=== PATIENT | male | born 1955 | race Caucasian/White ===

== ENCOUNTER 2025-05-05 10:48 | Outpatient (AMB) | payer OTHER, SELFPAY ==
--- OUTSIDE RECORDS SUMMARY | 2024-07-31 09:14 | XMS_ITS | Encounter Summary ---
Author Name [facility] [facility] Address [address] [place] [address] Support Name Relationship Address Phone MADELINE FRAZIER Next of Kin [address] [place] [phone] ISIDRO ROBERTSON Emergency Contact Unknown [phone] BARBIE ROBERTSON Emergency Contact Unknown [phone] Selected Encounter This section includes the information on record at [place] for the Encounter. Date/Time Encounter Type Encounter Description Reason Pro vider Source Jul 31, 2024 01:14 PM Outpatient Encounter ADMIN PAT ACTIVTIES (MASNONCT) IHE Encounter Template Text not used by [place] Plan of Treatment: Future Appointments (+ 6 months) and Future Tests (+/- 45 days) The Plan of Treatment section includes future care activities for the patient from all [place] treatmentfacilities. This section includes future appointments and future orders which are active, pending or scheduled. Future Appointments This section includes appointments that were scheduled to occur 6 months from the date of the Encounter, up to a maximum of 20 appointments. The data comes from all [place] treatment facilities. Appointment Date/Time Appointment Type Appointme nt Facility Name Sep 06, 2024 09:00 AM AMBULATORY - [facility] Encounter Notes: All associated encounter notes This section contains the clinical notes associated to the Encounter. Date/Time Encounter Note(s) Provider Source Jul 31, 2024 01:14 PM ADMINISTRATIVE NOT E: LOCAL TITLE: SOCIAL WORK ADMIN NOTE STANDARD TITLE: ADMINISTRATIVE NOTE DATE OF NOTE: JUL 31, 2024@13:14 ENTRY DATE: JUL 31, 2024@13:14:11 AUTHOR: JACKLYN SLAUGHTER COSIGNER: URGENCY: STATUS: COMPLETED Received a call from Taras Yarrows, brother of the & .'s identity was verified using Full Name, Last 4 of SSN, . Demographics unchanged/verified. is still at [facility]. States during the last hospitalization, the Claverack was found to have had a heart attack. States he and his brother have called multiple times (like 15 times) and can't get either a return call or someone who can get them an update on the Claverack. States most days the Claverack is not able to answer the phone/respond to texts. States when he does, he is not really able to tell them anything of value. Requested he ask for a care plan meeting. Also gave the number to the [facility]. JOINT CREASER called x 3 and left a message for a return call. On the fourth attempt, TIMBO reached someone who transferred JOINT CREASER to the facility SW. Left a message for a return call. Time Spent: 17 minutes /ryann/ Jacklyn Slaughter LCSW Dry House Operator ([place]) Signed: 07/31/2024 13:18 [facility]ACKLYN SLAUGHTER [facility]
--- NOTE | 2025-05-05 10:58 | MHC.OFFVIS ---
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 Required: No Accompanied by: Self / Same As Patient Allergies No Known Allergies Allergy (Verified 05/05/25 11:13) Medication List - Last Reconciled 05/05/25 by Rickey Sanchez MD acetaminophen 500 mg PO Q6H PRN alfuzosin ER 10 mg PO DAILY amlodipine 5 mg PO DAILY atorvastatin (Lipitor) 80 mg PO DAILY clopidogrel 75 mg PO DAILY doxazosin (Cardura) 4 mg PO DAILY evolocumab (Repatha SureClick) 140 mg subcut Q2W ezetimibe 10 mg PO DAILY fluoxetine 40 mg PO DAILY losartan 25 mg PO DAILY metoprolol tartrate 25 mg PO DAILY pantoprazole 40 mg PO DAILY primidone 50 mg PO BEDTIME HPI Comments Details: The patient is a 69-year-old male presenting for cardiovascular follow-up and management of existing conditions. He has relocated from [place]. The patient underwent coronary artery bypass grafting approximately ten years ago at [facility] in [place], [place]. In 2022, he had a stent placed in [place] due to shortness of breath. History of abdominal aortic aneurysm, status post EVAR as well as iliac artery aneurysm. Has hypertension, dyslipidemia. Within limits of his activity, no overt cardiac symptoms. No angina or shortness of breath. [facility] Medical History (Updated 05/05/25 @ 11:42 by Rickey Sanchez MD) Hyperlipidemia, unspecified Primary hypertension CABG (coronary artery bypass graft) planned Heart disease Iliac artery aneurysm Atherosclerotic cardiovascular disease Surgical History (Updated 05/05/25 @ 11:24 by Danisha De La Torre CMA) Hx of cardiac cath H/O heart artery stent Status post endovascular aneurysm repair (EVAR) Status post aorto-coronary artery bypass graft Family History (Updated 05/05/25 @ 11:25 by Danisha De La Torre CMA) Mother No problems noted. Social History (Updated 05/05/25 @ 11:25 by Danisha De La Torre CMA) Alcohol intake: current Patient Tobacco Use Status: Never used Tobacco Review of Systems Const Denies chills, Denies fatigue, Denies fever(s), Denies frequent falls, Denies weakness, Denies weight gain and Denies weight loss ENT Denies dizziness Card Denies chest pain, Denies leg edema, Denies lightheadedness, Denies palpitations, Denies dyspnea, Denies dyspnea on exertion and Denies orthopnea Resp Denies cough, Denies dyspnea and Denies dyspnea on exertion GI Denies bloating and Denies change in bowel habits Musc Denies muscle weakness, Denies numbness and Denies tingling Neuro Denies dizziness, Denies frequent falls, Denies numbness, Denies tingling and Denies weakness Endo Denies fatigue and Denies palpitations Physical Exam Vital Signs: Last Vital Signs Pulse 59 05/05/25 11:08 BP 126/80 05/05/25 11:08 BMI result Body Mass Index 29.4 Const General: comfortable and no acute distress Orientation/consciousness: patient oriented x3 HEENT Other: Unremarkable Head: Yes normal to inspection Neck Neck: Yes normal visual inspection Chest Chest palpation & inspection: normal inspection of the chest Resp Auscultation: clear to auscultation bilaterally Cardio Palpation: normal PMI Heart sounds: S1 normal heart sound present, S2 normal heart sound present, no gallops, no murmurs and no rubs GI Palpation (GI): Soft to palpation Back/Spine/Pelvis Other: unremarkable Skin General skin exam: no rashes or lesions noted Neuro General: patient oriented x3 Extrem General: Yes normal to inspection Psych Mental Status: mental status grossly normal Office Procedures EKG Details: EKG with sinus bradycardia at 59/Min; incomplete right bundle-branch block pattern; [place]. [id number], Complete Assessment & Plan Assessment & Plan (1) Atherosclerotic cardiovascular disease: Code(s): I25.10 - Atherosclerotic heart disease of [place] coronary artery without angina pectoris Category: Medical (2) Status post aorto-coronary artery bypass graft: Code(s): Z95.1 - Presence of aortocoronary bypass graft Category: Surgical (3) Status post endovascular aneurysm repair (EVAR): Code(s): Z98.890 - Other specified postprocedural states; Z86.79 - Personal history of other diseases of the circulatory system Category: Surgical Plan Cardiac data reviewed. In 2022, he underwent stress imaging which showed moderate size, moderate degree of ischemia in the entire inferolateral wall. After that, he underwent cardiac catheterization with stent to the vein graft to OM. Other findings include luminal irregularities in the LAD with occluded PTEERSON to LAD. Hwhhngpu-[id number] 1st diagonal with fills via vein graft and has a 40% lesion. RCA is occluded but has vein graft to PDA and collateral flow to the posterolateral branches. As he is otherwise asymptomatic, continue current regimen including Plavix, statins, Zetia, Repatha. Blood pressure is stable on current regimen. We will get labs from his PCP with regard to lipids. We will get an echocardiogram for cardiac function assessment. With regard to the history of abdominal aortic aneurysm repair, he will need vascular surgery follow-up, but he states that he would like to ensure vascular surgeon is in-network and hence he will call his insurance 1st. We will follow up in 3 months' time. Orders: Orders CA echo transthoracic complete Today I25.10 - Atherosclerotic heart disease of [place] coronary artery without angina pectoris Coding Level of Care Code New Pt Level 4 (96694) Diagnoses Atherosclerotic cardiovascular disease I25.10 Status post aorto-coronary artery bypass graft Z95.1 Status post endovascular aneurysm repair (EVAR) Z98.890; Z86.79 CPT Codes EKG - CPT: 02943-[id number], Complete ([id number])
[2025-05-05 11:08] VITALS: BP 126/80; PULSE 59; BMI 29.4
--- OUTSIDE RECORDS SUMMARY | 2025-05-05 11:55 | XMS_ITS | Clinical Summary ---
Author Organization [facility] Address [address] [place] [address] Phone Care Team Providers Care Food Technologist Name Role Phone Katerin Chin MD Primary Care Provider [phone] Social History Tobacco Use Types Packs/Day Years Used Date Smoking Tobacco: Never Assessed Sex and Gender Information Value Date Recorded Sex Assigned at Not on file Legal Sex Male 11:08 AM EST Gender Identity Not on file Sexual Orientation Not on file Plan of Treatment Health Maintenance Due Date Last Done Comments DTaP,Tdap,and Td Vaccines (1 - Tdap) 1975 Pneumococcal Vaccine: 50+ Ye ars (1 of 1 - PCV) 2006 Zoster Vaccines (1 of 2) 2006 COVID-19 Vaccine ( - 2023-2 5 season) 2024 Depression Screening 09/24/2024 Abdominal Aortic Aneurysm (A AA) Screen 11/19/2024 Cholesterol Screening (Lipid Panel) 11/19/2024 Colorectal Cancer Screening: Colonoscopy 11/19/2024 Falls Risk Assessment 11/19/2024 Hepatitis C Screening 11/19/2024 Hypertension/CHF/CAD Annual BMP Blood Test 11/19/2024 Medicare Annual Wellness Visit 11/19/2024 Social Influencers of Health Screening 11/19/2024 Influenza Vaccine (#1) 2025 RSV Immunization Adult Patie nts (1 - 1-dose 75+ series) 2031 HIB Vaccines Aged Out No longer eligi ble based on patient's age to complete this topic HPV Vaccines Aged Out No longer eligi ble based on patient's age to complete this topic Hepatitis A Vaccines Aged Out No long er eligible based on patient's age to complete this topic Hepatitis B Vaccines Aged Out No long er eligible based on patient's age to complete this topic IPV Vaccines Aged Out No longer eligi ble based on patient's age to complete this topic MMR Vaccines Aged Out No longer eligi ble based on patient's age to complete this topic Meningococcal ACWY Vaccine Aged Out N o longer eligible based on patient's age to complete this topic Meningococcal B Vaccine Aged Out No l onger eligible based on patient's age to complete this topic RSV Immunization Patients Un agnieszka 20 months Aged Out No longer eligible b ased on patient's age to complete this topic Varicella Vaccines Aged Out No longer eligible based on patient's age to complete this topic Insurance [employer] MEDICARE ADVANTAGE on file Care Teams Food Technologist Relationship Specialty Start Date End Date Katerin Chin MD [address] [place] [phone] PCP - General Internal Medicine 11/19/24
--- OUTSIDE RECORDS SUMMARY | 2025-05-05 11:55 | XMS_ITS ---
Author Name [facility] Organization Unknown History of Medication Use Medication Directions Dispensed Refills Start Date End Date Stat No data completed Encounters Encounter Type Encounter Reason Primary Diagnosis Location Date Ambulatory Other diseases of vo cara cords Other diseases of vocal cords [facility] 04/08/2025
--- OUTSIDE RECORDS SUMMARY | 2025-05-05 11:55 | XMS_ITS | Clinical Summary ---
Author Organization [facility] Address [address] [place] [address] Care Team Providers Care Release Of Information Clerk Name Role Phone Unavailable Primary Care Provider Unavailabl e Allergies No known active allergies Medications Hospital, Clinic, or Other Facility Administered Medication Ordered Dose Route Frequency Start Date End Date Status onabotulinum toxin Type A (BOTOX THERAPEUTIC) injection 3 UnitsIndications:Adductor spasmodic dysphonia 3 Units IM Once 04/08/2025 04/08/2025 Ended Encounters Date Type Department Care Team Description 04/08/2025 12:00 PM EDT Procedure visit [facility] [address] [place] [address] Natalie Ayers MD 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 No / Unsure 04/08/2025 11:16 AM EDT Plan of Treatment Upcoming Encounters Date Type Department Care Team ([facility] Contact Info) Description 07/08/2025 11:40 AM EDT Procedure visit [facility] Ot[facility] [address] [place] [phone] Natalie Ayers MD [address] [phone] Health Maintenance Due Date Last Done Comments CT Colonography 1956 Colonoscopy 1956 Colorectal Cancer Screening 1956 FIT-DNA (Cologuard) 1956 FIT 1956 FOBT 1956 Flex Sigmoidoscopy - 5y 1956 HIV Screening 1956 Medicare Annual Wellness (AWV) 1956 DTaP,Tdap,and Td Vaccines (1 - Tdap) 1974 Hepatitis C Screening 1974 Pneumococcal Vaccine, 50+ Ye ars (1 of 1 - PCV) 2006 Zoster Vaccines (1 of 2) 2006 COVID-19 Vaccine (1 - 2023-2 5 season) 2024 Influenza Vaccine (#1) 2025 HPV Vaccines Aged Out No longer eligi ble based on patient's age to complete this topic Hepatitis A Vaccines Aged Out No long er eligible based on patient's age to complete this topic Meningococcal Vaccine Aged Out No benito cely eligible based on patient's age to complete this topic Insurance MEDICARE HUMANA PPO
--- OUTSIDE RECORDS SUMMARY | 2025-05-05 11:55 | XMS_ITS | Patient Health Record ---
Author Organization [facility] Address [address] [place] [address] Care Team Providers Care Preassembler [employer] Name Role Phone ANA PAULA S[place] Primary Care Provider Allergies No Known Allergies Reason For Referral Reason coronary artery dise ase please evaluate and treat Diagnosis 1 Atherosclerotic hear t disease of [place] coronary artery without angina pectoris (I25.10) Referral Organization [facility] Referring Provider First Name NANI Referring Provider Last Name [facility] Referred Provider Specialty Cardiology General Notes Referral was faxed t o [facility]. Please contact patient for scheduling.Nelson Rashida 10/16/2024 02:36:44 PM > Referral Priority Routine Reason spastic dysphonia an d significant hoarseness please evaluate and treat Diagnosis 1 Dysphonia (R49.0) Referral Organization [facility] Referring Provider First Name NANI Referring Provider Last Name [facility] Referred Provider Specialty Otolaryngolo gy General Notes referral was faxed t o Ear ,Nose, Throat office. Please contact patient for scheduling.Nelson Rashida 10/16/2024 02:10:52 PM > Referral Priority Urgent Reason cervical spine steno sis and gait instability please evaluate and treat Diagnosis 1 Cervical stenosis of spine (M48.02) Diagnosis 2 Gait instability (R2 6.81) Referral Organization [facility] Referring Provider First Name NANI Referring Provider Last Name [facility] Referring Provider [facility] Internal edicine Referred Provider Specialty Neurosurgery General Notes Referral was faxed t o [facility]. Please contact patient for scheduling.Nelson Rashida 10/16/2024 02:02:26 PM > Referral Priority Urgent Reason BPH and history of u rinary retention please evaluate and treat Diagnosis 1 BPH without urinary obstruction (N40.0) Diagnosis 2 Retention of urine, unspecified (R33.9) Referral Organization [facility] Referring Provider First Name NANI Referring Provider Last Name AKOSUA Referring Provider Speciality Internal M edicine Referred Provider Specialty Urology General Notes referral was faxed p [facility] urology. Please contact patient for scheduling., Chasity Damon 10/16/2024 01:56:26 PM > Referral Priority Routine Medications Medication SIG (Take, Route, Frequency, Duration) Notes Start Date End Date Status Melatonin 3 MG 1 tablet at bedtime as needed Orally Once a day Active Alfuzosin HCl ER 10 MG 1 tablet immediat richi after the same meal Orally Once a day Active ARIPiprazole 5 MG 1 tablet Orally Once a day Active amLODIPine Besylate 5 MG 1 tablet Orally Once a day Active Losartan Potassium 25 MG 1 tablet Orally Once a day Active Pantoprazole Sodium 40 MG 1 tablet 1/2 t o 1 hour before morning meal Orally Once a day Active Acetaminophen 325 MG 1 tablet as needed Orally every 6 hrs Active Metoprolol Succinate 25 MG 1 capsule Ora lly Once a day Active FLUoxetine HCl 40 MG 1 capsule Orally On ce a day Active Fluoxetine Active Nitroglycerin 0.4 MG 1 tablet under the tongue and allow to dissolve as needed. Take every 5 minutes up to 3 times if chest pain persists Sublingual Three times a day Active Ezetimibe 10 MG 1 tablet Orally Once a day Active Atorvastatin Calcium 80 MG 1 tablet Oral ly Once a day Active hydrOXYzine HCl 50 MG 1 tablet as needed Orally Once a day Active Clopidogrel Bisulfate 75 MG 1 tablet Ora lly Once a day Active Repatha SureClick 140 MG/ML INJECT 1 PEN UNDER THE SKIN EVERY 2 WEEKS DIRECTED; Duration: 28 Active Problems Problem Type SNOMED Code ICD Code Onset Dates Problem Status W/U Status Risk Notes Problem Mixed hyperlipidemia (685691265) Mixed hyperlipidemia (E78.2) Active confirmed Problem Hearing loss (45439228) Unspecified hearing loss, unspecified ear (H91.90) Active confirmed Problem Atherosclerotic heart disease of [place] coronary artery without angina pectoris (499882929176684) Atherosclerotic heart disease of [place] coronary artery without angina pectoris (I25.10) Active confirmed Problem Angina co-occurrent and due to arteriosclerosis of coronary artery bypass graft (28263143557440557) Atherosclerosis of autologous artery coronary artery bypass graft(s) with unspecified angina pectoris (I25.729) Active confirmed Problem Coronary arteriosclerosis of coronary artery bypass graft (168368421) Atherosclerosis of coronary artery bypass graft(s) without angina pectoris (I25.810) Active confirmed Problem Abnormal gait (78575820) Other abnormalities of gait and mobility (R26.89) Active confirmed Problem Essential hypertension (69463386) Essential (primary) hypertension (I10) Active confirmed Problem Lower urinary tract symptoms due to benign prostatic hypertrophy (51717637433451) Benign prostatic hyperplasia with lower urinary tract symptoms (N40.1) Active confirmed Problem Spinal stenosis in cervical region (78732620) Cervical stenosis of spine (M48.02) Active confirmed Vital Signs Heart Rate 61 /min 01/29/2025 Temperature 96.5 degrees Fahrenheit 01/29/2025 Oximetry 98 % 01/29/2025 Blood pressure diastolic 80 mm Hg 01/29/2025 Height 5'11'' in 01/29/2025 Blood pressure systolic 128 mm Hg 01/29/2025 Weight 198.9 lbs 01/29/2025 BMI 27.74 kg/m2 01/29/2025 Encounters Encounter Location Date Provider Diagnosis [address] [address] 10/16/2024 [facility] Essential (primary) hypertension I10 ; Mixed hyperlipidemia E78.2 ; Atherosclerosis of autologous artery coronary artery bypass graft(s) with unspecified angina pectoris I25.729 ; Atherosclerosis of coronary artery bypass graft(s) without angina pectoris I25.810 ; Benign prostatic hyperplasia with lower urinary tract symptoms N40.1 and Dysphonia R49.0 [facility] [address] [place] [address] 01/29/2025 N[facility] Mixed hyperlipidemia E78.2 ; Essential (primary) hypertension I10 ; Atherosclerosis of autologous artery coronary artery bypass graft(s) with unspecified angina pectoris I25.729 ; Atherosclerosis of coronary artery bypass graft(s) without angina pectoris I25.810 ; Benign prostatic hyperplasia with lower urinary tract symptoms N40.1 ; Dysphonia R49.0 ; Unspecified hearing loss, unspecified ear H91.90 and Other abnormalities of gait and mobility R26.[address] [place] [address] 10/16/[address] [place] [address] 11/10/[address] [place] [address] 11/24/[address] [place] [address] 12/16/[address] [place] [address] 01/29/2025 [facility] Assessments Encounter Date Diagnosis (ICD Code) Assessment Notes Treatment Notes Treatment Clinical Notes Section Notes 10/16/2024 Mixed hyperlipidemia (ICD-10 - E78.2) Noel age [age] years old gentleman with CABG time 4, coronary artery disease and status post stent placement, AAA repair, hypertension, hyperlipidemia, generalized anxiety disorder/depress ion/insomnia, cervical radiculopathy, spastic dysphonia, essential tremors is here today to establish care. He is currently living with his mother after his . He was recently admitted at [facility] for anxiety and depression. Plan is as follows CABG time 4/ coronary artery disease. he denies any exertional chest pain pressure or shortness of breath. He is on statins, losartan and he is also on PCSK-9. He is also on dual antiplatelet therapy that is aspirin and Plavix. He is also on nitroglycerin 0.4 mg when necessary. Continue current regimen. Lab work ordered. 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 Hypertension/hyp erlipidemia. Blood pressure well controlled and continue current medication and lab work ordered Cervical radiculopathy. Referral to neurosurgery because he has gait instability and he was in a rehab in [place]. He was supposed to have cervical spine surgery for cervical stenosis but unfortunately his and surgery was postponed. We will get records from [place]. 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 Acid reflux. Continue on Protonix 40 mg daily and dietary restrictions discussed Generalized anxiety disorder/depress ion/insomnia. Recent admission at [facility]. He is stable on current regimen. He has a follow-up appointment with [facility] in the next few days. BPH with lower urinary tract symptoms. He is stable on current regimen and referral to urologist. Screening blood work ordered. 10/16/2024 Essential (primary) hypertension (ICD-10 - I10) Noel age [age] years old gentleman with CABG time 4, coronary artery disease and status post stent placement, AAA repair, hypertension, hyperlipidemia, generalized anxiety disorder/depress ion/insomnia, cervical radiculopathy, spastic dysphonia, essential tremors is here today to establish care. He is currently living with his mother after his . He was recently admitted at [facility] for anxiety and depression. Plan is as follows CABG time 4/ coronary artery disease. he denies any exertional chest pain pressure or shortness of breath. He is on statins, losartan and he is also on PCSK-9. He is also on dual antiplatelet therapy that is aspirin and Plavix. He is also on nitroglycerin 0.4 mg when necessary. Continue current regimen. Lab work ordered. 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 Hypertension/hyp erlipidemia. Blood pressure well controlled and continue current medication and lab work ordered Cervical radiculopathy. Referral to neurosurgery because he has gait instability and he was in a rehab in [place]. He was supposed to have cervical spine surgery for cervical stenosis but unfortunately his and surgery was postponed. We will get records from [place]. 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 Acid reflux. Continue on Protonix 40 mg daily and dietary restrictions discussed Generalized anxiety disorder/depress ion/insomnia. Recent admission at [facility]. He is stable on current regimen. [facility] days. BPH with lower urinary tract symptoms. He is stable on current regimen and referral to urologist. Screening blood work ordered. 01/29/2025 Mixed hyperlipidemia (ICD-10 - E78.2) Noel age [age] years old gentleman with CABG time 4, coronary artery disease and status post stent placement, AAA repair, hypertension, hyperlipidemia, generalized anxiety disorder/depress ion/insomnia, cervical radiculopathy, spastic dysphonia, essential tremors is here today for follow-up He is currently living with his mother after his . He was recently admitted at [facility] for anxiety and depression. Plan is as follows CABG time 4/ coronary artery disease. he denies any exertional chest pain pressure or shortness of breath. He is on statins, losartan and he is also on PCSK-9. He is also on dual antiplatelet therapy that is aspirin and Plavix. He is also on nitroglycerin 0.4 mg when necessary. 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 Blood pressure well controlled and continue current medication and lab work ordered Cervical radiculopathy. Referral to neurosurgery because he has gait instability and he was in a rehab in [place]. He was supposed to have cervical spine surgery for cervical stenosis but unfortunately his and surgery was postponed. We will get records from [place]. His insurance changed and he is waiting to see neurosurgery. because of gait instability he is asking for handicap placard Spastic dysphonia. His insurance changed and it got into effect from January 22, 2025 and he will look up for ENT physician who do Botox injections in [facility] or in [place]. Acid reflux. Continue on Protonix 40 mg daily and dietary restrictions discussed Generalized anxiety disorder/depress ion/insomnia. [facility] [place]. He is stable on current regimen. He see therapist at [facility]. BPH with lower urinary tract symptoms. He is stable on current regimen and waiting to see urologist. Hearing loss. He uses hearing aids. Screening blood work ordered but he is going to have physical at [facility] 01/29/2025 Essential (primary) hypertension (ICD-10 - I10) Noel age [age] years old gentleman with CABG time 4, coronary artery disease and status post stent placement, AAA repair, hypertension, hyperlipidemia, generalized anxiety disorder/depress ion/insomnia, cervical radiculopathy, spastic dysphonia, essential tremors is here today for follow-up He is currently living with his mother after his . He was recently admitted at [facility] for anxiety and depression. Plan is as follows CABG time 4/ coronary artery disease. he denies any exertional chest pain pressure or shortness of breath. He is on statins, losartan and he is also on PCSK-9. He is also on dual antiplatelet therapy that is aspirin and Plavix. He is also on nitroglycerin 0.4 mg when necessary. 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 Blood pressure well controlled and continue current medication and lab work ordered Cervical radiculopathy. Referral to neurosurgery because he has gait instability and he was in a rehab in [place]. He was supposed to have cervical spine surgery for cervical stenosis but unfortunately his and surgery was postponed. We will get records from [place]. His insurance changed and he is waiting to see neurosurgery. because of gait instability he is asking for handicap placard Spastic dysphonia. His insurance changed and it got into effect from January 22, 2025 and he will look up for ENT physician who do Botox injections in [facility] or in [place]. Acid reflux. Continue on Protonix 40 mg daily and dietary restrictions discussed Generalized anxiety disorder/depress ion/insomnia. Recent admission at [facility] [place]. He is stable on current regimen. He see therapist at [facility]. BPH with lower urinary tract symptoms. He is stable on current regimen and waiting to see urologist. Hearing loss. He uses hearing aids. Screening blood work ordered but he is going to have physical at [facility] 01/29/2025 Atherosclerosis of autologous artery coronary artery bypass graft(s) with unspecified angina pectoris (ICD-10 - I25.729) Noel age [age] years old gentleman with CABG time 4, coronary artery disease and status post stent placement, AAA repair, hypertension, hyperlipidemia, generalized anxiety disorder/depress ion/insomnia, cervical radiculopathy, spastic dysphonia, essential tremors is here today for follow-up He is currently living with his mother after his . He was recently admitted at [facility] for anxiety and depression. Plan is as follows CABG time 4/ coronary artery disease. he denies any exertional chest pain pressure or shortness of breath. He is on statins, losartan and he is also on PCSK-9. He is also on dual antiplatelet therapy that is aspirin and Plavix. He is also on nitroglycerin 0.4 mg when necessary. 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 Blood pressure well controlled and continue current medication and lab work ordered Cervical radiculopathy. Referral to neurosurgery because he has gait instability and he was in a rehab in [place]. He was supposed to have cervical spine surgery for cervical stenosis but unfortunately his and surgery was postponed. We will get records from [place]. His insurance changed and he is waiting to see neurosurgery. because of gait instability he is asking for handicap placard Spastic dysphonia. His insurance changed and it got into effect from January 22, 2025 and he will look up for ENT physician who do Botox injections in [facility] or in [place]. Acid reflux. Continue on Protonix 40 mg daily and dietary restrictions discussed Generalized anxiety disorder/depress ion/insomnia. Recent admission at [facility] [place]. He is stable on current regimen. He see therapist at [facility]. BPH with lower urinary tract symptoms. He is stable on current regimen and waiting to see urologist. Hearing loss. He uses hearing aids. Screening blood work ordered but he is going to have physical at [facility] 10/16/2024 Atherosclerosis of autologous artery coronary artery bypass graft(s) with unspecified angina pectoris (ICD-10 - I25.729) Noel age [age] years old gentleman with CABG time 4, coronary artery disease and status post stent placement, AAA repair, hypertension, hyperlipidemia, generalized anxiety disorder/depress ion/insomnia, cervical radiculopathy, spastic dysphonia, essential tremors is here today to establish care. He is currently living with his mother after his . He was recently admitted at [facility] for anxiety and depression. Plan is as follows CABG time 4/ coronary artery disease. he denies any exertional chest pain pressure or shortness of breath. He is on statins, losartan and he is also on PCSK-9. He is also on dual antiplatelet therapy that is aspirin and Plavix. He is also on nitroglycerin 0.4 mg when necessary. Continue current regimen. Lab work ordered. 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 Hypertension/hyp erlipidemia. Blood pressure well controlled and continue current medication and lab work ordered Cervical radiculopathy. Referral to neurosurgery because he has gait instability and he was in a rehab in [place]. He was supposed to have cervical spine surgery for cervical stenosis but unfortunately his and surgery was postponed. We will get records from [place]. 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 Acid reflux. Continue on Protonix 40 mg daily and dietary restrictions discussed Generalized anxiety disorder/depress ion/insomnia. Recent admission at [facility]. He is stable on current regimen. He has a follow-up appointment with [facility] in the next few days. BPH with lower urinary tract symptoms. He is stable on current regimen and referral to urologist. Screening blood work ordered. 10/16/2024 Atherosclerosis of coronary artery bypass graft(s) without angina pectoris (ICD-10 - I25.810) Noel age [age] years old gentleman with CABG time 4, coronary artery disease and status post stent placement, AAA repair, hypertension, hyperlipidemia, generalized anxiety disorder/depress ion/insomnia, cervical radiculopathy, spastic dysphonia, essential tremors is here today to establish care. He is currently living with his mother after his . He was recently admitted at [facility] for anxiety and depression. Plan is as follows CABG time 4/ coronary artery disease. he denies any exertional chest pain pressure or shortness of breath. He is on statins, losartan and he is also on PCSK-9. He is also on dual antiplatelet therapy that is aspirin and Plavix. He is also on nitroglycerin 0.4 mg when necessary. Continue current regimen. Lab work ordered. 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 Hypertension/hyp erlipidemia. Blood pressure well controlled and continue current medication and lab work ordered Cervical radiculopathy. Referral to neurosurgery because he has gait instability and he was in a rehab in [place]. He was supposed to have cervical spine surgery for cervical stenosis but unfortunately his and surgery was postponed. We will get records from [place]. 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 Acid reflux. Continue on Protonix 40 mg daily and dietary restrictions discussed Generalized anxiety disorder/depress ion/insomnia. Recent admission at [facility] [place]. He is stable on current regimen. [facility]. BPH with lower urinary tract symptoms. He is stable on current regimen and referral to urologist. Screening blood work ordered. 01/29/2025 Atherosclerosis of coronary artery bypass graft(s) without angina pectoris (ICD-10 - I25.810) Noel age [age] years old gentleman with CABG time 4, coronary artery disease and status post stent placement, AAA repair, hypertension, hyperlipidemia, generalized anxiety disorder/depress ion/insomnia, cervical radiculopathy, spastic dysphonia, essential tremors is here today for follow-up He is currently living with his mother after his . He was recently admitted at [facility] for anxiety and depression. Plan is as follows CABG time 4/ coronary artery disease. he denies any exertional chest pain pressure or shortness of breath. He is on statins, losartan and he is also on PCSK-9. He is also on dual antiplatelet therapy that is aspirin and Plavix. He is also on nitroglycerin 0.4 mg when necessary. 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 Blood pressure well controlled and continue current medication and lab work ordered Cervical radiculopathy. Referral to neurosurgery because he has gait instability and he was in a rehab in [place]. He was supposed to have cervical spine surgery for cervical stenosis but unfortunately his and surgery was postponed. We will get records from [place]. His insurance changed and he is waiting to see neurosurgery. because of gait instability he is asking for handicap placard Spastic dysphonia. His insurance changed and it got into effect from January 22, 2025 and he will look up for ENT physician who do Botox injections in [facility] or in [place]. Acid reflux. Continue on Protonix 40 mg daily and dietary restrictions discussed Generalized anxiety disorder/depress ion/insomnia. Recent admission at [facility] [place]. He is stable on current regimen. He see therapist at [facility]. BPH with lower urinary tract symptoms. He is stable on current regimen and waiting to see urologist. Hearing loss. He uses hearing aids. Screening blood work ordered but he is going to have physical at [facility] 01/29/2025 Benign prostatic hyperplasia with lower urinary tract symptoms (ICD-10 - N40.1) Noel age [age] years old gentleman with CABG time 4, coronary artery disease and status post stent placement, AAA repair, hypertension, hyperlipidemia, generalized anxiety disorder/depress ion/insomnia, cervical radiculopathy, spastic dysphonia, essential tremors is here today for follow-up He is currently living with his mother after his . He was recently admitted at [facility] for anxiety and depression. Plan is as follows CABG time 4/ coronary artery disease. he denies any exertional chest pain pressure or shortness of breath. He is on statins, losartan and he is also on PCSK-9. He is also on dual antiplatelet therapy that is aspirin and Plavix. He is also on nitroglycerin 0.4 mg when necessary. 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 Blood pressure well controlled and continue current medication and lab work ordered Cervical radiculopathy. Referral to neurosurgery because he has gait instability and he was in a rehab in [place]. He was supposed to have cervical spine surgery for cervical stenosis but unfortunately his and surgery was postponed. We will get records from [place]. His insurance changed and he is waiting to see neurosurgery. because of gait instability he is asking for handicap placard Spastic dysphonia. His insurance changed and it got into effect from January 22, 2025 and he will look up for ENT physician who do Botox injections in [facility] or in [place]. Acid reflux. Continue on Protonix 40 mg daily and dietary restrictions discussed Generalized anxiety disorder/depress ion/insomnia. Recent admission at [facility] [place]. He is stable on current regimen. He see therapist at [facility]. BPH with lower urinary tract symptoms. He is stable on current regimen and waiting to see urologist. Hearing loss. He uses hearing aids. Screening blood work ordered but he is going to have physical at [facility] 10/16/2024 Benign prostatic hyperplasia with lower urinary tract symptoms (ICD-10 - N40.1) Noel age [age] years old gentleman with CABG time 4, coronary artery disease and status post stent placement, AAA repair, hypertension, hyperlipidemia, generalized anxiety disorder/depress ion/insomnia, cervical radiculopathy, spastic dysphonia, essential tremors is here today to establish care. He is currently living with his mother after his . He was recently admitted at [facility] for anxiety and depression. Plan is as follows CABG time 4/ coronary artery disease. he denies any exertional chest pain pressure or shortness of breath. He is on statins, losartan and he is also on PCSK-9. He is also on dual antiplatelet therapy that is aspirin and Plavix. He is also on nitroglycerin 0.4 mg when necessary. Continue current regimen. Lab work ordered. 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 Hypertension/hyp erlipidemia. Blood pressure well controlled and continue current medication and lab work ordered Cervical radiculopathy. Referral to neurosurgery because he has gait instability and he was in a rehab in [place]. He was supposed to have cervical spine surgery for cervical stenosis but unfortunately his and surgery was postponed. We will get records from [place]. 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 Acid reflux. Continue on Protonix 40 mg daily and dietary restrictions discussed Generalized anxiety disorder/depress ion/insomnia. Recent admission at [facility]. He is stable on current regimen. He has a follow-up appointment [facility] in the next few days. BPH with lower urinary tract symptoms. He is stable on current regimen and referral to urologist. Screening blood work ordered. 10/16/2024 Dysphonia (ICD-10 - R49.0) Noel age [age] years old gentleman with CABG time 4, coronary artery disease and status post stent placement, AAA repair, hypertension, hyperlipidemia, generalized anxiety disorder/depress ion/insomnia, cervical radiculopathy, spastic dysphonia, essential tremors is here today to establish care. He is currently living with his mother after his . He was recently admitted at [facility] for anxiety and depression. Plan is as follows CABG time 4/ coronary artery disease. he denies any exertional chest pain pressure or shortness of breath. He is on statins, losartan and he is also on PCSK-9. He is also on dual antiplatelet therapy that is aspirin and Plavix. He is also on nitroglycerin 0.4 mg when necessary. Continue current regimen. Lab work ordered. 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 Hypertension/hyp erlipidemia. Blood pressure well controlled and continue current medication and lab work ordered Cervical radiculopathy. Referral to neurosurgery because he has gait instability and he was in a rehab in [place]. He was supposed to have cervical spine surgery for cervical stenosis but unfortunately his and surgery was postponed. We will get records from [place]. 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 Acid reflux. Continue on Protonix 40 mg daily and dietary restrictions discussed Generalized anxiety disorder/depress ion/insomnia. Recent admission at [facility]. He is stable on current regimen. [facility] next few days. BPH with lower urinary tract symptoms. He is stable on current regimen and referral to urologist. Screening blood work ordered. 01/29/2025 Dysphonia (ICD-10 - R49.0) Noel age [age] years old gentleman with CABG time 4, coronary artery disease and status post stent placement, AAA repair, hypertension, hyperlipidemia, generalized anxiety disorder/depress ion/insomnia, cervical radiculopathy, spastic dysphonia, essential tremors is here today for follow-up He is currently living with his mother after his . He was recently admitted at [facility] for anxiety and depression. Plan is as follows CABG time 4/ coronary artery disease. he denies any exertional chest pain pressure or shortness of breath. He is on statins, losartan and he is also on PCSK-9. He is also on dual antiplatelet therapy that is aspirin and Plavix. He is also on nitroglycerin 0.4 mg when necessary. 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 Blood pressure well controlled and continue current medication and lab work ordered Cervical radiculopathy. Referral to neurosurgery because he has gait instability and he was in a rehab in [place]. He was supposed to have cervical spine surgery for cervical stenosis but unfortunately his and surgery was postponed. We will get records from [place]. His insurance changed and he is waiting to see neurosurgery. because of gait instability he is asking for handicap placard Spastic dysphonia. His insurance changed and it got into effect from January 22, 2025 and he will look up for ENT physician who do Botox injections in [facility] or in [place]. Acid reflux. Continue on Protonix 40 mg daily and dietary restrictions discussed Generalized anxiety disorder/depress ion/insomnia. Recent admission at [facility] [place]. He is stable on current regimen. He see therapist at [facility]. BPH with lower urinary tract symptoms. He is stable on current regimen and waiting to see urologist. Hearing loss. He uses hearing aids. Screening blood work ordered but he is going to have physical at [facility] 01/29/2025 Unspecified hearing loss, unspecified ear (ICD-10 - H91.90) Noel age [age] years old gentleman with CABG time 4, coronary artery disease and status post stent placement, AAA repair, hypertension, hyperlipidemia, generalized anxiety disorder/depress ion/insomnia, cervical radiculopathy, spastic dysphonia, essential tremors is here today for follow-up He is currently living with his mother after his . He was recently admitted at [facility] for anxiety and depression. Plan is as follows CABG time 4/ coronary artery disease. he denies any exertional chest pain pressure or shortness of breath. He is on statins, losartan and he is also on PCSK-9. He is also on dual antiplatelet therapy that is aspirin and Plavix. He is also on nitroglycerin 0.4 mg when necessary. 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 Blood pressure well controlled and continue current medication and lab work ordered Cervical radiculopathy. Referral to neurosurgery because he has gait instability and he was in a rehab in [place]. He was supposed to have cervical spine surgery for cervical stenosis but unfortunately his and surgery was postponed. We will get records from [place]. His insurance changed and he is waiting to see neurosurgery. because of gait instability he is asking for handicap placard Spastic dysphonia. His insurance changed and it got into effect from January 22, 2025 and he will look up for ENT physician who do Botox injections in [facility] or in [place]. Acid reflux. Continue on Protonix 40 mg daily and dietary restrictions discussed Generalized anxiety disorder/depress ion/insomnia. Recent admission at [facility] [place]. He is stable on current regimen. He see therapist at [facility]. BPH with lower urinary tract symptoms. He is stable on current regimen and waiting to see urologist. Hearing loss. He uses hearing aids. Screening blood work ordered but he is going to have physical at [facility] 01/29/2025 Other abnormalities of gait and mobility (ICD-10 - R26.89) Noel age [age] years old gentleman with CABG time 4, coronary artery disease and status post stent placement, AAA repair, hypertension, hyperlipidemia, generalized anxiety disorder/depress ion/insomnia, cervical radiculopathy, spastic dysphonia, essential tremors is here today for follow-up He is currently living with his mother after his . He was recently admitted at [facility] for anxiety and depression. Plan is as follows CABG time 4/ coronary artery disease. he denies any exertional chest pain pressure or shortness of breath. He is on statins, losartan and he is also on PCSK-9. He is also on dual antiplatelet therapy that is aspirin and Plavix. He is also on nitroglycerin 0.4 mg when necessary. 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 Blood pressure well controlled and continue current medication and lab work ordered Cervical radiculopathy. Referral to neurosurgery because he has gait instability and he was in a rehab in [place]. He was supposed to have cervical spine surgery for cervical stenosis but unfortunately his and surgery was postponed. We will get records from [place]. His insurance changed and he is waiting to see neurosurgery. because of gait instability he is asking for handicap placard Spastic dysphonia. His insurance changed and it got into effect from January 22, 2025 and he will look up for ENT physician who do Botox injections in [facility] or in [place]. Acid reflux. Continue on Protonix 40 mg daily and dietary restrictions discussed Generalized anxiety disorder/depress ion/insomnia. Recent admission at [facility] [place]. He is stable on current regimen. He see therapist at [facility]. BPH with lower urinary tract symptoms. He is stable on current regimen and waiting to see urologist. Hearing loss. He uses hearing aids. Screening blood work ordered but he is going to have physical at [facility] Plan Of Treatment Future Test Test Name Order Date Albumin/Creatinine Ratio,[id number] Lipid Panel-[id number] 10/16/2024 Comp. Metabolic Panel [id number] 2024 PSA (Serial Monitor)-[id number] 10/16/2024 Next Appt Details Provider Name:Elaine pope, 07/30/2025 09:00:00 AM, [address] [place] [address], [phone], Insurance Providers Payer Name Payer Address Payer Phone Subscriber Number Group Number Insured Name Patient Relationship to Insured Coverage Start Date Coverage End Date [facility] [address] [address] [place] [phone] [id number] Sagar Romero Self - patient is the insured 4 Medical (General) History Medical History History ICD Code CABG time 4 Coronary artery disease and status post stent placement Hypertension Hyperlipidemia Generalized anxiety disorder/major depre ssion/insomnia Spasmodic dysphonia Cervical radiculopathy with unsteady gai t BPH with lower urinary symptoms Iliac artery aneurysm Surgical History Surgery Date(Month/Year) CABG time 4 2014 AAA repair Iliac artery aneurysm surgery time 2
== END 2025-05-05 11:52 | disposition home or self-care (01) ==
LOC: HO.HCS 10:48
PROVIDERS: PCP Hospitalist; Visit Provider Internal Medicine
DX: I25.10 Atherosclerotic heart disease of native coronary artery without angina pectoris (principal); Z95.1 Presence of aortocoronary bypass graft; Z98.890 Other specified postprocedural states; Z86.79 Personal history of other diseases of the circulatory system
CPT/HCPCS: 93010; 99204

== ENCOUNTER → 2025-05-05 10:48 | Outpatient (BNVA) | payer OTHER, SELFPAY | PROVIDERS: PCP Hospitalist; Visit Provider Internal Medicine | DX: I25.10 Atherosclerotic heart disease of native coronary artery without angina pectoris (principal) | CPT/HCPCS: 93005 ==

== ENCOUNTER → 2025-07-07 10:50 | Outpatient (REF) | payer OTHER, SELFPAY ==
--- NOTE | 2025-07-07 11:18 | CA_ITS ---
Transthoracic Echocardiogram Patient (Last, First, Middle): Sagar Romero, Gender: M Date of : 1955 Age: 69 Procedure Date: 07/07/2025 Procedure Type: Transthoracic Echocardiogram Location: OP Height: 177.8 cm Weight: 90.72 kg BSA: 2.09 m2 Heart Rate: 62 bpm BP: 90 / 55 mmHg General Lithographic Worker: DENIS/ANTONIO Referring MD: Rickey Sanchez MD Symptoms: I25.10 - Atherosclerotic heart disease of tetlin coronary artery without... Study Quality: Fair ECG Rhythm: Sinus Conclusions: - The left ventricular systolic function is low normal. The visually estimated ejection fraction is between 50-55%. - The basal inferior and mid inferior segments are hypokinetic. - There is mild calcification of the aortic valve. Findings Left Ventricle Normal left ventricular cavity size. There is mildly increased left ventricular wall thickness. The left ventricular systolic function is low normal. The visually estimated ejection fraction is between 50-55%. There is paradoxical septal motion consistent with post-operative status. Diastolic function is normal for age. Wall Motion Rest Echo Findings The basal inferior and mid inferior segments are hypokinetic. Right Ventricle The right ventricle was not well visualized. Moderately increased right ventricular cavity size. Atria The left atrium is normal in size. The right atrium is mildly dilated. Aortic Valve There is a normal trileaflet aortic valve. There is mild calcification of the aortic valve. There is no aortic valve stenosis. There is trace (trivial) aortic valve regurgitation. Mitral Valve The mitral valve appears normal. There is no mitral valve regurgitation. There is no mitral valve stenosis. Pulmonic Valve The pulmonic valve is likely normal. Tricuspid Valve There is trace tricuspid valve regurgitation. There is no evidence of pulmonary hypertension. Great Vessels The asc aorta and aortic arch are normal in size. Venous The inferior vena cava is normal in size and collapses greater than 50% with inspiration. Pericardium/Pleural There is a trivial pericardial effusion. Prior Study Comparison No prior study available for comparison. Measurements 2D Linear Measurements IVSd: 1.33 0.6-0.9/0.6-1.0 cm LVIDd: 3.28 3.9-5.3/4.2-5.9 cm LVIDd Index: 1.57 2.4-3.2/2.2-3.1 cm/m2 LVIDs: 2.44 2.0-3.6 cm LVPWd: 1.39 0.7-1.1 cm LA Diam: 3.70 2.7-3.8/3.0-4.0 cm LAIDs Index: 1.77 1.5-2.3 cm/m2 LV Mass: 187.94 67-162/88-224 g LV Mass Index: 89.92 43-95/49-115 g/m2 LVOT Diam: 2.20 3.0+(-)1.3 cm 2D Systolic Function EF 4C: 57.10 >55% EF 2C: 59.70 >55% EF BiP: 58.90 >55% Mitral Valve MV Pk E: 0.63 MV PK A: 0.53 MV Decel Time: 216.00 E/A: 1.20 E'Lateral: 7.62 E'Medial: 5.77 E/E' Med: 11.00 E/E' Lat: 8.30 PHT: 63.00 MVA PHT: 3.49 Decel [place]: 2.94 Aortic Valve AoV Pk Tyrone: 1.79 AoV Mn Tyrone: 1.19 AoV VTI: 0.35 AoV Pk Grad: 13.00 Aov Mn Grad: 6.00 CARRIE Cont.VTI: 2.76 AI Pk Tyrone: 4.71 AI [place]: 2.00 LVOT LVOT Pk [place]one: 1.35 LVOT Mn [place]one: 0.87 LVOT VTI: 0.25 LVOT Pk Grad: 7.00 LVOT Mn Grad: 4.00 LVOT Diam: 2.20 LVOT Area: 3.80 Diastolic Function MV Pk E: 0.63 MV Pk A: 0.53 E/A: 1.20 E'Medial: 5.77 E/E' Med: 11.00 E' Laterial: 7.62 E/E' Lat: 8.30 Tricuspid Valve TR Pk Tyrone: 1.88 TR Pk Grad: 14.00 RA Press: 3.00 RVSP: 17.00 Great Vessels Aorta Sinus of Valsalva: 4.10 2.0-3.5 cm Ao Asc: 3.70 2.1-3.4 cm Ao Arch: 3.40 Pulmonary Veins Pulm Vein S/D 1.30 Pulmonary Valve PV Pk Tyrone: 0.80 Peak PV Grad: 3.00 Updated in Other Vendor System with Status of Final Rickey Sanchez MD electronically signed on 07/07/2025 3:27:40 PM with status of Final
--- OUTSIDE RECORDS SUMMARY | 2025-07-07 12:57 | XMS_ITS | Clinical Summary ---
Author Organization [facility] Address [address] [place] [address] Care Team Providers Care Plate Drying Machine Tender Name Role Phone Unavailable Primary Care Provider Unavailabl e Allergies No known active allergies Encounters Date Type Department Care Team Description 04/08/2025 12:00 PM EDT Procedure visit [facility] [address] [place] [address] Natalie Ayers MD Adductor spasmodic dysphonia from Last 3 Months Social History Tobacco Use Types Packs/Day Years Used Date Smoking Tobacco: Never Assessed Sex and Gender Information Value Date Recorded Sex Assigned at Not on file Legal Sex Male 8:19 AM EDT Gender Identity Not on file Sexual Orientation Not on file Plan of Treatment Upcoming Encounters Date Type Department Care Team (Late st Contact Info) Description 07/08/2025 11:40 AM EDT Procedure visit [facility] [address] [place] [id number] Natalie Ayers MD [address] [place] [address] [place] [address] Health Maintenance Due Date Last Done Comments [...] COVID-19 Vaccine (1 - 2023-2 5 season) 2025 Influenza Vaccine (#1) 2025 HPV Vaccines Aged [...]
--- OUTSIDE RECORDS SUMMARY | 2025-07-07 12:57 | XMS_ITS | Clinical Summary ---
Author Organization [facility] Address [address] [place] [address] Phone Care Team Providers Care Quality Nurse Name Role Phone Katerin Chin MD Primary Care Provider [phone] Encounters Date Type Department Care Team Description 06/06/[address] [place] [address] Katerin Chin MD from Last 3 Months Social History Tobacco Use Types Packs/Day Years Used Date Smoking Tobacco: Never Assessed Sex and Gender Information Value Date Recorded Sex Assigned at Not on file Legal Sex Male 11:08 AM EST Gender Identity Not on file Sexual Orientation Not on file Plan of Treatment Health Maintenance Due Date Last Done Comments Colorectal Cancer Screening: Colonoscopy 1955 DTaP,Tdap,and Td Vaccines (1 - Tdap) 1975 Pneumococcal Vaccine: 50+ Ye ars (1 of 1 - PCV) 2006 Zoster Vaccines (1 of 2) 2006 Depression Screening 09/24/2024 Abdominal Aortic Aneurysm (A AA) Screen 11/19/2024 Cholesterol Screening (Lipid Panel) 11/19/2024 Falls Risk Assessment 11/19/2024 Hepatitis C Screening 11/19/2024 Hypertension/CHF/CAD Annual BMP Blood Test 11/19/2024 Medicare Annual Wellness Visit 11/19/2024 Social Influencers of Health Screening 11/19/2024 COVID-19 Vaccine ( - 2023-2 5 season) 2025 Influenza Vaccine (#1) 2025 RSV Immunization Adult [...] [employer] on file Care Teams Quality Nurse Relationship Specialty Start Date End Date Katerin Chin MD [address] [place] [address] PCP - General Internal Medicine 11/19/24
--- OUTSIDE RECORDS SUMMARY | 2025-07-07 12:57 | XMS_ITS | Patient Health Record ---
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 Please contact patient for scheduling.Nelson Rashida 10/16/2024 02:36:44 PM > Referral Priority Routine Reason spastic dysphonia an d significant hoarseness please evaluate and treat Diagnosis 1 Dysphonia (R49.0) Referral Organization [facility] Referring Provider First Name NANI Referring Provider Last Name [facility] Referring Provider Speciality Internal edicine Referred Provider Specialty Otolaryngolo gy General Notes referral was faxed t o Ear ,Nose, Throat office. Please contact patient for scheduling.Nelson Rashida 10/16/2024 02:10:52 PM > Referral Priority Urgent Reason cervical spine steno sis and gait instability please evaluate and treat Diagnosis 1 Cervical stenosis of spine (M48.02) Diagnosis 2 Gait instability (R2 6.81) Referral Organization [facility] Referring Provider First Name NANI Referring Provider Last Name [facility] Referring Provider Speciality Internal edicine Referred Provider Specialty Neurosurgery General Notes Referral was faxed t o [facility]. Please contact patient for scheduling.Nelson Rashida 10/16/2024 02:02:26 PM > Referral Priority Urgent Reason BPH and history of u rinary retention please evaluate and treat Diagnosis 1 BPH without urinary obstruction (N40.0) Diagnosis 2 Retention of urine, unspecified (R33.9) Referral Organization [facility] Referring Provider First Name NANI Referring Provider Last Name AKOSUA Referring Provider Speciality Internal M edicine Referred Provider Specialty Urology General Notes referral was faxed [facility] urology. Please contact [...] 1 tablet Orally Once a day Active Metoprolol Succinate 25 MG 1 capsule Ora lly Once a day; Duration: 90 days Active amLODIPine Besylate 5 MG 1 tablet Orally Once a day Active Losartan Potassium 25 MG 1 tablet Orally Once a day Active Acetaminophen 325 MG 1 tablet as needed Orally every 6 hrs Active FLUoxetine HCl 40 MG 1 capsule [...] tablet Ora lly Once a day Active Pantoprazole Sodium 40 MG 1 tablet 1/2 t o 1 hour before morning meal Orally Once a day; Duration: 90 days Active Repatha SureClick 140 MG/ML INJECT 1 PEN UNDER THE SKIN EVERY 2 WEEKS DIRECTED; Duration: 28 Active Problems Problem Type SNOMED Code ICD Code Onset Dates Problem Status W/U Status Risk Notes Problem Mixed hyperlipidemia (639679668) Mixed hyperlipidemia (E78.2) Active confirmed Problem Hearing loss (69518812) Unspecified hearing loss, unspecified ear (H91.90) Active confirmed Problem Atherosclerotic heart disease of [place] coronary artery without angina pectoris (039495490363017) Atherosclerotic heart disease of [place] coronary artery without angina pectoris (I25.10) Active confirmed Problem Angina co-occurrent and due to arteriosclerosis of coronary artery bypass graft (83081506586411600) Atherosclerosis of autologous artery coronary artery bypass graft(s) with unspecified angina pectoris (I25.729) Active confirmed Problem Coronary arteriosclerosis of coronary artery bypass graft (349041544) Atherosclerosis of coronary artery bypass graft(s) without angina pectoris (I25.810) Active confirmed Problem Abnormal gait (54537358) Other abnormalities of gait and mobility (R26.89) Active confirmed Problem Essential hypertension (08352349) Essential (primary) hypertension (I10) Active confirmed Problem Lower urinary tract symptoms due to benign prostatic hypertrophy (47314763637062) Benign prostatic hyperplasia with lower urinary tract symptoms (N40.1) Active confirmed Problem Spinal stenosis in cervical region (34235378) Cervical stenosis of spine (M48.02) Active confirmed Vital Signs Heart Rate 61 /min 01/29/2025 Temperature 96.5 degrees Fahrenheit 01/29/2025 Oximetry 98 % 01/29/2025 Blood pressure diastolic 80 mm Hg 01/29/2025 Height 5'11'' in 01/29/2025 Blood pressure systolic 128 mm Hg 01/29/2025 Weight 198.9 lbs 01/29/2025 BMI 27.74 kg/m2 01/29/2025 Encounters Encounter Location Date Provider Diagnosis [address] [address] 10/16/2024 [facility] Essential (primary) hypertension I10 ; Mixed hyperlipidemia E78.2 ; Atherosclerosis of autologous artery coronary artery bypass graft(s) with unspecified angina pectoris I25.729 ; Atherosclerosis of coronary artery bypass graft(s) without angina pectoris I25.810 ; Benign prostatic hyperplasia with lower urinary tract symptoms N40.1 and Dysphonia R49.[address] [place] [address] 01/29/2025 [facility] Mixed hyperlipidemia E78.2 ; [...] Other abnormalities of gait and mobility R26.[address] [place] [address] 10/16/[address] [place] [address] 11/10/[address] [place] [address] 11/24/[address] [place] [address] 12/16/[address] [address] 01/29/[address] [address] 05/29/2025 Ghadeer Mazloum GERD without esophagitis K21.[address] [address] 06/19/2025 [facility] Assessments Encounter Date Diagnosis (ICD [...] his . He was recently admitted at [facility] for anxiety and depression. Plan is as [...] current regimen. Lab work ordered. Referral to medical historian. Hypertension/hyp erlipidemia. Blood pressure well controlled and continue current medication and lab work ordered Cervical radiculopathy. Referral to neurosurgery because he has gait instability and he was in a rehab in [place]. He was supposed to have cervical spine surgery for cervical stenosis but unfortunately his and surgery was postponed. We will get records from [place]. 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 Acid reflux. Continue on Protonix 40 mg daily and dietary restrictions discussed Generalized anxiety disorder/depress ion/insomnia. Recent admission at [facility]. He is stable on current regimen. He has a follow-up appointment with [facility] in the next few days. BPH with [...] his . He was recently admitted at [facility] for anxiety and depression. Plan is as [...] current regimen. Lab work ordered. Referral to medical historian. Hypertension/hyp erlipidemia. Blood pressure well controlled and continue current medication and lab work ordered Cervical radiculopathy. Referral to neurosurgery because he has gait instability and he was in a rehab in [place]. He was supposed to have cervical spine surgery for cervical stenosis but unfortunately his and surgery was postponed. We will get records from [place]. 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 Acid reflux. Continue on Protonix 40 mg daily and dietary restrictions discussed Generalized anxiety disorder/depress ion/insomnia. Recent admission at [facility]. He is stable on current regimen. He has a follow-up appointment with [facility] in the next few days. BPH with [...] his . He was recently admitted at [facility] for anxiety and depression. Plan is as [...] current regimen plan he follows up with medical historian Hypertension/hyp erlipidemia. Blood pressure well controlled and continue current medication and lab work ordered Cervical radiculopathy. Referral to neurosurgery because he has gait instability and he was in a rehab in [place]. He was supposed to have cervical spine surgery for cervical stenosis but unfortunately his and surgery was postponed. We will get records from [place]. His insurance changed and he is waiting to see neurosurgery. 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 Acid reflux. Continue on Protonix 40 mg daily and dietary restrictions discussed Generalized anxiety disorder/depress ion/insomnia. Recent admission at [facility]. He is stable on current regimen. He see therapist at [facility]. BPH with lower urinary tract symptoms. He is stable on current regimen and waiting to see urologist. Hearing loss. He uses hearing aids. Screening blood work ordered but he is going to have physical at [facility] 01/29/2025 Essential (primary) hypertension (ICD-10 - I10) Noel age [age] years old gentleman with CABG time 4, coronary artery disease and status post stent placement, AAA repair, hypertension, hyperlipidemia, generalized anxiety disorder/depress ion/insomnia, cervical radiculopathy, spastic dysphonia, essential tremors is here today for follow-up He is currently living with his mother after his . He was recently admitted at [facility] for anxiety and depression. Plan is as [...] current regimen plan he follows up with medical historian Hypertension/hyp erlipidemia. Blood pressure well controlled and continue current medication and lab work ordered Cervical radiculopathy. Referral to neurosurgery because he has gait instability and he was in a rehab in [place]. He was supposed to have cervical spine surgery for cervical stenosis but unfortunately his and surgery was postponed. We will get records from [place]. His insurance changed and he is waiting to see neurosurgery. 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 Acid reflux. Continue on Protonix 40 mg daily and dietary restrictions discussed Generalized anxiety disorder/depress ion/insomnia. Recent admission at [facility]. He is stable on current regimen. He see therapist at [facility]. BPH with lower urinary tract symptoms. He is stable on current regimen and waiting to see urologist. Hearing loss. He uses hearing aids. Screening blood work ordered but he is going to have physical at [facility] 01/29/2025 Atherosclerosis of autologous artery coronary artery [...] his . He was recently admitted at [facility] for anxiety and depression. Plan is as [...] current regimen plan he follows up with medical historian Hypertension/hyp erlipidemia. Blood pressure well controlled and continue current medication and lab work ordered Cervical radiculopathy. Referral to neurosurgery because he has gait instability and he was in a rehab in [place]. He was supposed to have cervical spine surgery for cervical stenosis but unfortunately his and surgery was postponed. We will get records from [place]. His insurance changed and he is waiting to see neurosurgery. 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 Acid reflux. Continue on Protonix 40 mg daily and dietary restrictions discussed Generalized anxiety disorder/depress ion/insomnia. Recent admission at [facility]. He is stable on current regimen. He see therapist at [facility]. BPH with lower urinary tract symptoms. He is stable on current regimen and waiting to see urologist. Hearing loss. He uses hearing aids. Screening blood work ordered but he is going to have physical at [facility] 05/29/2025 GERD without esophagitis (ICD-10 - K21.9) 10/16/2024 Atherosclerosis of autologous artery coronary artery [...] his . He was recently admitted at [facility] for anxiety and depression. Plan is as [...] current regimen. Lab work ordered. Referral to medical historian. Hypertension/hyp erlipidemia. Blood pressure well controlled and continue current medication and lab work ordered Cervical radiculopathy. Referral to neurosurgery because he has gait instability and he was in a rehab in [place]. He was supposed to have cervical spine surgery for cervical stenosis but unfortunately his and surgery was postponed. We will get records from [place]. 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 Acid reflux. Continue on Protonix 40 mg daily and dietary restrictions discussed Generalized anxiety disorder/depress ion/insomnia. Recent admission at [facility]. He is stable on current regimen. He has a follow-up appointment with [facility] in the next few days. [...] his . He was recently admitted at [facility] for anxiety and depression. Plan is as [...] current regimen. Lab work ordered. Referral to medical historian. Hypertension/hyp erlipidemia. Blood pressure well controlled and continue current medication and lab work ordered Cervical radiculopathy. Referral to neurosurgery because he has gait instability and he was in a rehab in [place]. He was supposed to have cervical spine surgery for cervical stenosis but unfortunately his and surgery was postponed. We will get records from [place]. 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 Acid reflux. Continue on Protonix 40 mg daily and dietary restrictions discussed Generalized anxiety disorder/depress ion/insomnia. [facility]. He is stable on current regimen. He has a follow-up appointment with [facility] in the next few days. BPH with [...] his . He was recently admitted at [facility] for anxiety and depression. Plan is as [...] current regimen plan he follows up with medical historian Hypertension/hyp erlipidemia. Blood pressure well controlled and continue current medication and lab work ordered Cervical radiculopathy. Referral to neurosurgery because he has gait instability and he was in a rehab in [place]. He was supposed to have cervical spine surgery for cervical stenosis but unfortunately his and surgery was postponed. We will get records from [place]. His insurance changed and he is waiting to see neurosurgery. 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 Acid reflux. Continue on Protonix 40 mg daily and dietary restrictions discussed Generalized anxiety disorder/depress ion/insomnia. Recent admission at [facility]. He is stable on current regimen. He see therapist at [facility]. BPH with lower urinary tract symptoms. He is stable on current regimen and waiting to see urologist. Hearing loss. He uses hearing aids. Screening blood work ordered but he is going to have physical at [facility] 01/29/2025 Benign prostatic hyperplasia with lower urinary [...] his . He was recently admitted at [facility] for anxiety and depression. Plan is as [...] current regimen plan he follows up with medical historian Hypertension/hyp erlipidemia. Blood pressure well controlled and continue current medication and lab work ordered Cervical radiculopathy. Referral to neurosurgery because he has gait instability and he was in a rehab in [place]. He was supposed to have cervical spine surgery for cervical stenosis but unfortunately his and surgery was postponed. We will get records from [place]. His insurance changed and he is waiting to see neurosurgery. 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 Acid reflux. Continue on Protonix 40 mg daily and dietary restrictions discussed Generalized anxiety disorder/depress ion/insomnia. Recent admission at [facility]. He is stable on current regimen. He see therapist at [facility]. BPH with lower urinary tract symptoms. He is stable on current regimen and waiting to see urologist. Hearing loss. He uses hearing aids. Screening blood work ordered but he is going to have physical at [facility] 10/16/2024 Benign prostatic hyperplasia with lower urinary [...] his . He was recently admitted at [facility] for anxiety and depression. Plan is as [...] current regimen. Lab work ordered. Referral to medical historian. Hypertension/hyp erlipidemia. Blood pressure well controlled and continue current medication and lab work ordered Cervical radiculopathy. Referral to neurosurgery because he has gait instability and he was in a rehab in [place]. He was supposed to have cervical spine surgery for cervical stenosis but unfortunately his and surgery was postponed. We will get records from [place]. 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 Acid reflux. Continue on Protonix 40 mg daily and dietary restrictions discussed Generalized anxiety disorder/depress ion/insomnia. Recent admission at [facility]. He is stable on current regimen. He has a follow-up appointment with [facility] in the next few days. [...] his . He was recently admitted at [facility] for anxiety and depression. Plan is as [...] current regimen. Lab work ordered. Referral to medical historian. Hypertension/hyp erlipidemia. Blood pressure well controlled and continue current medication and lab work ordered Cervical radiculopathy. Referral to neurosurgery because he has gait instability and he was in a rehab in [place]. He was supposed to have cervical spine surgery for cervical stenosis but unfortunately his and surgery was postponed. We will get records from [place]. 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 Acid reflux. Continue on Protonix 40 mg daily and dietary restrictions discussed Generalized anxiety disorder/depress ion/insomnia. Recent admission at [facility]. He is stable on current regimen. He has a follow-up appointment with [facility] in the next few days. BPH with [...] his . He was recently admitted at [facility] for anxiety and depression. Plan is as [...] current regimen plan he follows up with medical historian Hypertension/hyp erlipidemia. Blood pressure well controlled and continue current medication and lab work ordered Cervical radiculopathy. Referral to neurosurgery because he has gait instability and he was in a rehab in [place]. He was supposed to have cervical spine surgery for cervical stenosis but unfortunately his and surgery was postponed. We will get records from [place]. His insurance changed and he is waiting to see neurosurgery. 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 Acid reflux. Continue on Protonix 40 mg daily and dietary restrictions discussed Generalized anxiety disorder/depress ion/insomnia. Recent admission at [facility]. He is stable on current regimen. He see therapist at [facility]. BPH with lower urinary tract symptoms. He is stable on current regimen and waiting to see urologist. Hearing loss. He uses hearing aids. Screening blood work ordered but he is going to have physical at [facility] 01/29/2025 Unspecified hearing loss, unspecified ear (ICD-10 - H91.90) Noel age [age] years old gentleman with CABG time 4, coronary artery disease and status post stent placement, AAA repair, hypertension, hyperlipidemia, generalized anxiety disorder/depress ion/insomnia, cervical radiculopathy, spastic dysphonia, essential tremors is here today for follow-up He is currently living with his mother after his . He was recently admitted at [facility] for anxiety and depression. Plan is as [...] current regimen plan he follows up with medical historian Hypertension/hyp erlipidemia. Blood pressure well controlled and continue current medication and lab work ordered Cervical radiculopathy. Referral to neurosurgery because he has gait instability and he was in a rehab in [place]. He was supposed to have cervical spine surgery for cervical stenosis but unfortunately his and surgery was postponed. We will get records from [place]. His insurance changed and he is waiting to see neurosurgery. 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 Acid reflux. Continue on Protonix 40 mg daily and dietary restrictions discussed Generalized anxiety disorder/depress ion/insomnia. Recent admission at [facility]. He is stable on current regimen. [facility] BPH with lower urinary tract symptoms. He is stable on current regimen and waiting to see urologist. Hearing loss. He uses hearing aids. Screening blood work ordered but he is going to have physical at [facility] 01/29/2025 Other abnormalities of gait and mobility (ICD-10 - R26.89) Noel age [age] years old gentleman with CABG time 4, coronary artery disease and status post stent placement, AAA repair, hypertension, hyperlipidemia, generalized anxiety disorder/depress ion/insomnia, cervical radiculopathy, spastic dysphonia, essential tremors is here today for follow-up He is currently living with his mother after his . He was recently admitted at [facility] for anxiety and depression. Plan is as [...] current regimen plan he follows up with medical historian Hypertension/hyp erlipidemia. Blood pressure well controlled and continue current medication and lab work ordered Cervical radiculopathy. Referral to neurosurgery because he has gait instability and he was in a rehab in [place]. He was supposed to have cervical spine surgery for cervical stenosis but unfortunately his and surgery was postponed. We will get records from [place]. His insurance changed and he is waiting to see neurosurgery. 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 Acid reflux. Continue on Protonix 40 mg daily and dietary restrictions discussed Generalized anxiety disorder/depress ion/insomnia. Recent admission at [facility]. He is stable on current regimen. He see therapist at [facility]. BPH with lower urinary tract symptoms. He is stable on current regimen and waiting to see urologist. Hearing loss. He uses hearing aids. Screening blood work ordered but he is going to have physical at [facility] Plan Of Treatment Future Test Test Name Order Date Albumin/Creatinine Ratio,Urine-[id number] Lipid Panel-[id number] 10/16/2024 Comp. Metabolic Panel ([id number] 2024 PSA (Serial Monitor)-[id number] 10/16/2024 Next Appt Details Provider Name:Elaine pope, 07/30/2025 09:00:00 AM, [address] [place] [address], [id number], Insurance Providers Payer Name Payer Address Payer Phone Subscriber Number Group Number Insured Name Patient Relationship to Insured Coverage Start Date Coverage End Date [employer] [address] [address] [place] [phone] [id number] Sagar Romero Self - patient is the [...]
== END ==
LOC: HO.CARD 10:50
PROVIDERS: PCP Hospitalist; Visit Provider Internal Medicine
DX: I25.10 Atherosclerotic heart disease of native coronary artery without angina pectoris (principal)
CPT/HCPCS: 93306

== ENCOUNTER → 2025-07-07 11:18 | Outpatient (BNV) | payer OTHER, SELFPAY | PROVIDERS: PCP Hospitalist; Visit Provider Internal Medicine | DX: I35.8 Other nonrheumatic aortic valve disorders (principal); I51.89 Other ill-defined heart diseases; Z98.890 Other specified postprocedural states | CPT/HCPCS: 93306 ==

== ENCOUNTER 2025-08-19 09:32 | Outpatient (AMB) | payer OTHER, SELFPAY ==
--- OUTSIDE RECORDS SUMMARY | 2015-06-24 09:31 | XMS_ITS | Continuity of Care Document ---
Author Organization [facility] Address [address] [place] [phone] Phone Care Team Providers Care Field Test Engineer Name Role Phone Rodri Gamino MD Unavailable Unavailable Advance Directives Directive Yes / No Effective Date File Name No Information Encounters Encounter Description Practice Location Reason(s) For Visit Diagnoses Date Provider Encounter Disposition [facility], [address] [place] [address], [id number], tel:[phone] Call Center No Information [address] Stevenson Mace. [address] [place] [address], [facility], [place], [address], [place]. tel:[phone] Family History Family Member Type Diagnosis Age At Onset No Information Payers Payer name Insurance type Identifiers Authorization(s) Com ments No Information Social History Type Description Quantity Date Captured Comments Sex Male Smoking Status No Information Current Gender Male (finding) Chief Complaint And Reason For Visit No Information History Of Present Illness Encounter Date Complaint History Of Prese nt Illness No Information Functional Status Date Description Comments No Information Instructions Date Instruction Additional Infor mation No Information Assessments Type Assessment Date No Information
[2025-08-19 09:34] VITALS: BP 118/68; PULSE 66; BMI 28.8
--- NOTE | 2025-08-19 09:34 | A.OFFVIS_ITS ---
Vital Signs 08/19/25 09:34 Height 5 ft 10 in Weight 200 lb 9.93 oz BMI 28.8 BP 118/68 Blood Pressure Location Lt brachial Position Sitting Pulse 66 Pulse Source Pulse Oximeter Intake Visit Reasons: 3 mth f/up echo Allergies No Known Allergies Allergy (Verified 05/05/25 11:13) Medication List - Last Reconciled 08/19/25 by Rickey Sanchez MD acetaminophen 500 mg PO Q6H PRN alfuzosin ER 10 mg PO DAILY amlodipine 5 mg PO DAILY atorvastatin (Lipitor) 80 mg PO DAILY clopidogrel 75 mg PO DAILY 90 days doxazosin (Cardura) 4 mg PO DAILY evolocumab (Repatha SureClick) 140 mg subcut Q2W ezetimibe 10 mg PO DAILY fluoxetine 40 mg PO DAILY losartan 25 mg PO DAILY metoprolol tartrate 25 mg PO DAILY pantoprazole 40 mg PO DAILY primidone 50 mg PO BEDTIME HPI Comments Details: The patient is a 69-year-old male presenting for cardiovascular follow-up and management of existing conditions. He has relocated from [place]. The patient underwent coronary artery bypass grafting approximately ten years ago at [facility] in [place], [place]. In 2022, he had a stent placed in [place] due to shortness of breath. History of abdominal aortic aneurysm, status post EVAR as well as iliac artery aneurysm. Has hypertension, dyslipidemia. Overall, he states he feels good. He has had some exertional chest tightness at times, but going back almost 10 years but that is unchanged. [facility] Medical History (Updated 05/05/25 @ 11:42 by Rickey Sanchez MD) Hyperlipidemia, unspecified Primary hypertension CABG (coronary artery bypass graft) planned Heart disease Iliac artery aneurysm Atherosclerotic cardiovascular disease Surgical History (Updated 05/05/25 @ 11:24 by Danisha De La Torre CMA) Hx of cardiac cath H/O heart artery stent Status post endovascular aneurysm repair (EVAR) Status post aorto-coronary artery bypass graft Family History (Updated 05/05/25 @ 11:25 by Danisha De La Torre CMA) Mother No problems noted. Social History (Updated 05/05/25 @ 11:25 by Danisha De La Torre CMA) Alcohol intake: current Patient Tobacco Use Status: Never used Tobacco Review of Systems Const Denies weakness ENT Denies dizziness Card Denies chest pain, Denies chest pain with activity, Denies syncope, Denies rapid heart rate, Denies pedal edema, Denies edema, Denies leg edema, Denies lightheadedness, Reports palpitations, Denies dyspnea, Denies dyspnea on exertion and Denies orthopnea Resp Denies cough, Denies dyspnea and Denies dyspnea on exertion GI Denies hematochezia and Denies change in stool character Musc Denies abnormal gait, Denies muscle cramps, Denies muscle weakness, Denies numbness, Denies radiating pain into limb and Denies tingling Neuro Denies abnormal gait, Denies dizziness, Denies syncope, Denies numbness, Denies tingling and Denies weakness Endo Reports palpitations Physical Exam Vital Signs: Last Vital Signs Pulse 66 08/19/25 09:34 BP 118/68 08/19/25 09:34 BMI result Body Mass Index 28.8 Const General: comfortable and no acute distress Orientation/consciousness: patient oriented x3 HEENT Other: Unremarkable Head: Yes normal to inspection Neck Neck: Yes normal visual inspection Chest Chest palpation & inspection: normal inspection of the chest Resp Auscultation: clear to auscultation bilaterally Cardio Palpation: normal PMI Heart sounds: S1 normal heart sound present, S2 normal heart sound present, no gallops, no murmurs and no rubs GI Palpation (GI): Soft to palpation Back/Spine/Pelvis Other: unremarkable Skin General skin exam: no rashes or lesions noted Neuro General: patient oriented x3 Extrem General: Yes normal to inspection Psych Mental Status: mental status grossly normal Assessment & Plan Assessment & Plan (1) Atherosclerotic cardiovascular disease: Code(s): I25.10 - Atherosclerotic heart disease of in[place] coronary artery without angina pectoris Category: Medical (2) Status post aorto-coronary artery bypass graft: Code(s): Z95.1 - Presence of aortocoronary bypass graft Category: Surgical (3) Status post endovascular aneurysm repair (EVAR): Code(s): Z98.890 - Other specified postprocedural states; Z86.79 - Personal history of other diseases of the circulatory system Category: Surgical Plan Cardiac data reviewed. In 2022, he underwent stress imaging which showed moderate size, moderate degree of ischemia in the entire inferolateral wall. After that, he underwent cardiac catheterization with stent to the vein graft to OM. Other findings include luminal irregularities in the LAD with occluded PETERSON to LAD. [id number] 1st diagonal with fills via vein graft and has a 40% lesion. RCA is occluded but has vein graft to PDA and collateral flow to the posterolateral branches. In the recent echocardiogram, LVEF 50-55%. Basal to mid inferior hypokinesis. Mild aortic valve calcification. As he is otherwise asymptomatic, continue current regimen including Plavix, statins, Zetia, Repatha. Blood pressure is stable on current regimen. Recent LDL cholesterol 18 mg/dL triglycerides 160 mg/dL. With regard to the history of abdominal aortic aneurysm repair, he will need vascular surgery follow-up and he plans on making those arrangements himself. Discussion Notes I reviewed the patient's recent lab work and noted that the results are good, with excellent cholesterol control, confirming the efficacy of the current medications. We discussed the patient's exertional chest tightness, which has been stable for 10 years post-surgery; given its unchanging nature, I recommended leaving the current management as is. Regarding medication refills for cholesterol and blood pressure, I advised the patient to coordinate these through the primary care provider to simplify the process and consolidate care under one physician. I acknowledged the patient's plan to see a vascular surgeon. We agreed to a follow-up appointment in about six months. Patient was informed and verbally consented to the use of an ambient scribe for clinic note documentation during this visit. Coding Level of Care Code Est Pt Level 4 (20294) Complex visit Add On G2211 Diagnoses Atherosclerotic cardiovascular disease I25.10 Status post aorto-coronary artery bypass graft Z95.1 Status post endovascular aneurysm repair (EVAR) Z98.890; Z86.79
--- OUTSIDE RECORDS SUMMARY | 2025-08-19 10:42 | XMS_ITS | Data Portability ---
Author Organization [facility] Gabriel Cli fabián Diana, [facility] IP Address [address] [address] Care Team Providers Care Curer Foam Rubber Name Role Phone ORALIA BRAXTON Primary Care Provider YESSENIA MCKENZIE OTHER Assessment Encounter Date Assessment Date Assessment LastModified by Organization Details LastModified Time 01/18/2024 01/18/2024 68M here for f/u from HTN + VICENTE. Improving on prozac Not available 01/18/2024 15:51:40 04/03/2024 04/03/2024 GREATER THAN 45 MINTES SPENT ON PATIENT ENCOUNTER WITH FACE TO FACE, COORDINATION OR CARE AND CARE PLANNING [email or web address] Not available 04/03/2024 14:00:02 06/25/2024 06/25/2024 GREATER THAN 65 MINUTES SPENT ON PATIENT ENCOUNTER WITH FACE TO FACE, CARE PLANNING AND COORDINATION OF CARE -er notes -neurosurg notes -neuro notes med review [email or web address] Not available 06/25/2024 13:58:11 Plan of Treatment Reminders Order Date Submit Date Provider Last Modified By Organization Details Last Modified Time Details Appointments None recorded. Lab CK (creatine kinase), total, serum 2023 024 DENISHA CORNEJO, [address], [place], [address], 07:15:25 magnesium, serum or plasma 2023 024 DENISHA CORNEJO, [address], [place], [address], 4 07:15:25 urinalysis, dipstick 2023 [email or web address] In-Office Order, Internal Use Only DO Not Attach Compendium DO Not Attach Compendium, Do Not Delete/merge, [id number] 4 13:05:09 CBC 2023 DENISHA VALLEJODIANA, [address], [place], [address], 4 07:15:24 CMP, serum or plasma 2023 DENISHA CORNEJO, [address], [place], [address], 4 07:15:24 Referral counseling referral - acute stress/depr ession/ptsd eval--pt unexpectedl y and he has to have major surgery 2023 [email or web address] [id number] Jocelynn Mccann CHEMICAL TECHNICIAN, [address], [place], [address], 09:34:31 otolaryngol ogist referral - 68M presents for routine f/u hoarseness noted; ongoing since CABG 2 mo ago. ?Vocal cord injury from surgery. Please evaluate and treat. 2023 024 DENISHA Misty SMITH, [address], [place], [address], 4 10:44:01 Procedures None recorded. Surgeries None recorded. Imaging None recorded. Medication Orders Prozac 40 mg capsule 2023 024 DENISHA [id number], [address], [place], [place], [id number], 4 16:00:23 Prozac 20 mg capsule 2022 023 [email or web address] [facility] #[id number], [address], [place], [place], [id number], 12:26:27 Patient TargetsNo targets recorded. Patient Instructions Encounter Date Encounter Id Patient Instructions Last Modified By Organization Details Last Modified Time 07/16/2023 [id number] learning about healthy weight [email or web address] Not available 07/21/2023 11:09:07 07/24/2023 [id number] learning about healthy weight [email or web address] Not available 07/24/2023 11:21:28 01/18/2024 [id number] learning about healthy weight Not available 01/18/2024 15:52:22 04/03/2024 [id number] learning about healthy weight [email or web address] Not available 04/03/2024 12:42:09 Reason for Referral Translational Specialist Referral fo r Vocal cord dysfunction 68M presents for routine f/u hoarseness noted; ongoing since CABG 2 mo ago. ?Vocal cord injury from surgery. Please evaluate and treat. Referring Physician: Yessenia Mckenzie, Family Medicine, Encounter Date: 01/18/2024 Counseling Referral for Acut e stress disorder acute stress/depression/ptsd eval--pt unexpectedly and he has to have major surgery acute stress/depression/ptsd eval--pt unexpectedly and he has to have major surgery Referring Physician: Oralia Braxton, Family Medicine, Encounter Date: 06/25/2024 Results Created Date Observation Date Name Description Value Unit Range Abnormal Flag Note LastModifiedBy Organization Detail LastModifiedTime 06/26/2006/27/2023 CMP14 (REFL EX HGB A1C) glucose 98 mg/dL 70-99 Not Available [facility] ([facility]) [address] [place], [address], 06/27/2023 13:38:49 06/26/2006/27/2023 CMP14 (REFL EX HGB A1C) BUN 24 mg/dL 8-27 Not Available [facility] ([facility]) [address] [place], [address], 06/27/2023 13:38:49 06/26/20 23 06/27/2023 CMP14 (REFL EX HGB A1C) creatinine 1.25 mg/dL 0.76-1 .27 Not Available [facility] ([facility]) [address] [facility], [place], [address], 06/27/2023 13:38:49 06/26/20 23 06/27/2023 CMP14 (REFL EX HGB A1C) eGFR 64 mL/mi n/1.7 3 >59 Not Available [facility] ([facility]) [address] [facility], [place], [address], 06/27/2023 13:38:49 06/26/20 23 06/27/2023 CMP14 (REFL EX HGB A1C) BUN/creatini ne ratio 19 10-24 Not Available [facility] ([facility]) [address] [facility], [place], [address], 06/27/2023 13:38:49 06/26/20 23 06/27/2023 CMP14 (REFL EX HGB A1C) sodium 136 mmol/ L 134-14 4 Not Available [facility] ([facility]) [address] [facility], [place], [address], 06/27/2023 13:38:49 06/26/20 23 06/27/2023 CMP14 (REFL EX HGB A1C) potassium 5.1 mmol/ L 3.5-5. 2 Not Available [facility] ([facility]) [address] [facility], [place], [address], 06/27/2023 13:38:49 06/26/20 23 06/27/2023 CMP14 (REFL EX HGB A1C) chloride 102 mmol/ L 96-106 Not Available [facility] ([facility]) [address] [facility], [place], [address], 06/27/2023 13:38:49 06/26/2006/27/2023 CMP14 (REFL EX HGB A1C) carbon dioxide, total 19 mmol/ L 20-29 below low normal Not Available [facility] ([facility]) [address] [facility], [place], [address], 06/27/2023 13:38:49 06/26/2006/27/2023 CMP14 (REFL EX HGB A1C) calcium 9.3 mg/dL 8.6-10 .2 Not Available [facility] ([facility]) [address] [facility], [place], [address], 06/27/2023 13:38:49 06/26/2006/27/2023 CMP14 (REFL EX HGB A1C) protein, total 6.8 g/dL 6.0-8. 5 Not Available [facility] ([facility]) [address] [facility], [place], [address], 06/27/2023 13:38:49 06/26/2006/27/2023 CMP14 (REFL EX HGB A1C) albumin 4.7 g/dL 3.9-4. 9 Not Available [facility] ([facility]) [address] [facility], [place], [address], 06/27/2023 13:38:49 06/26/2006/27/2023 CMP14 (REFL EX HGB A1C) globulin, total 2.1 g/dL 1.5-4. 5 Not Available [facility] ([facility]) [address] [place], [address], 06/27/2023 13:38:49 06/26/2006/27/2023 CMP14 (REFL EX HGB A1C) A/G ratio 2.2 1.2-2. 2 Not Available [facility] ([facility]) [address] [place], [address], 06/27/2023 13:38:49 06/26/2006/27/2023 CMP14 (REFL EX HGB A1C) bilirubin, total 0.5 mg/dL 0.0-1. 2 Not Available [facility] ([facility]) [address] [facility], [place], [address], 06/27/2023 13:38:49 06/26/20 23 06/27/2023 CMP14 (REFL EX HGB A1C) alkaline phosphatase 58 IU/L 44-121 Not Available [facility] ([facility]) [address] [facility], [place], [address], 06/27/2023 13:38:49 06/26/2006/27/2023 CMP14 (REFL EX HGB A1C) AST (SGOT) 25 IU/L 0-40 Not Available [facility] ([facility]) [address] [facility], [place], [address], 06/27/2023 13:38:49 06/26/2006/27/2023 CMP14 (REFL EX HGB A1C) ALT (SGPT) 26 IU/L 0-44 Not Available [facility] ([facility]) [address] [facility], [place], [address], 06/27/2023 13:38:49 06/26/20 23 06/27/2023 CBC WITH DIFFE RENTI AL/PL ATELE T WBC 4.2 x10e3 /uL 3.4-10 .8 Not Available [facility] ([facility]) [address] [facility], [place], [address], 06/27/2023 13:38:51 06/26/2006/27/2023 CBC WITH DIFFE RENTI AL/PL ATELE T RBC 4.35 x10e6 /uL 4.14-5 .80 Not Available [facility] ([facility]) [address] [facility], [place], [address], 06/27/2023 13:38:51 06/26/20 23 06/27/2023 CBC WITH DIFFE RENTI AL/PL ATELE T hemoglobin 13.8 g/dL 13.0-1 7.7 Not Available [facility] ([facility]) [address] [facility], [place], [address], 06/27/2023 13:38:51 06/26/2006/27/2023 CBC WITH DIFFE RENTI AL/PL ATELE T hematocrit 42.3 % 37.5-5 1.0 Not Available [facility] ([facility]) [address] [facility], [place], [address], 06/27/2023 13:38:51 06/26/2006/27/2023 CBC WITH DIFFE RENTI AL/PL ATELE T MCV 97 fL 79-97 Not Available [facility] ([facility]) [address] [facility], [place], [address], 06/27/2023 13:38:51 06/26/2006/27/2023 CBC WITH DIFFE RENTI AL/PL ATELE T MCH 31.7 pg 26.6-3 3.0 Not Available [facility] ([facility]) [address] [facility], [place], [address], 06/27/2023 13:38:51 06/26/2006/27/2023 CBC WITH DIFFE RENTI AL/PL ATELE T MCHC 32.6 g/dL 31.5-3 5.7 Not Available [facility] ([facility]) [address] [place], [address], 06/27/2023 13:38:51 06/26/2006/27/2023 CBC WITH DIFFE RENTI AL/PL ATELE T RDW 13.1 % 11.6-1 5.4 Not Available [facility] ([facility]) [address] [place], [address], 06/27/2023 13:38:51 06/26/20 23 06/27/2023 CBC WITH DIFFE RENTI AL/PL ATELE T platelets 150 x10e3 /uL 150-45 0 Not Available [facility] ([facility]) [address] [facility], [place], [address], 06/27/2023 13:38:51 06/26/2006/27/2023 CBC WITH DIFFE RENTI AL/PL ATELE T neutrophils 58 % not estab. Not Available [facility] ([facility]) [address] [facility], [place], [address], 06/27/2023 13:38:51 06/26/2006/27/2023 CBC WITH DIFFE RENTI AL/PL ATELE T lymphs 28 % not estab. Not Available [facility] ([facility]) [address] [facility], [place], [address], 06/27/2023 13:38:51 06/26/2006/27/2023 CBC WITH DIFFE RENTI AL/PL ATELE T monocytes 9 % not estab. Not Available [facility] ([facility]) [address] [facility], [place], [address], 06/27/2023 13:38:51 06/26/2006/27/2023 CBC WITH DIFFE RENTI AL/PL ATELE T eos 4 % not estab. Not Available [facility] ([facility]) [address] [facility], [place], [address], 06/27/2023 13:38:51 06/26/2006/27/2023 CBC WITH DIFFE RENTI AL/PL ATELE T basos 1 % not estab. Not Available [facility] ([facility]) [address] [facility], [place], [address], 06/27/2023 13:38:51 06/26/2006/27/2023 CBC WITH DIFFE RENTI AL/PL ATELE T immature cells PLANT ASSOCIATE Not Available [facility] ([facility]) [address] [facility], [place], [address], 06/27/2023 13:38:51 06/26/20 23 06/27/2023 CBC WITH DIFFE RENTI AL/PL ATELE T neutrophils (absolute) 2.5 x10e3 /uL 1.4-7. 0 Not Available [facility] ([facility]) [address] [facility], [place], [address], 06/27/2023 13:38:51 06/26/20 23 06/27/2023 CBC WITH DIFFE RENTI AL/PL ATELE T lymphs (absolute) 1.2 x10e3 /uL 0.7-3. 1 Not Available [facility] ([facility]) [address] [facility], [place], [address], 06/27/2023 13:38:51 06/26/20 23 06/27/2023 CBC WITH DIFFE RENTI AL/PL ATELE T monocytes(ab solute) 0.4 x10e3 /uL 0.1-0. 9 Not Available [facility] ([facility]) [address] [facility], [place], [address], 06/27/2023 13:38:51 06/26/20 23 06/27/2023 CBC WITH DIFFE RENTI AL/PL ATELE T eos (absolute) 0.2 x10e3 /uL 0.0-0. 4 Not Available [facility] ([facility]) [address] [facility], [place], [address], 06/27/2023 13:38:51 06/26/20 23 06/27/2023 CBC WITH DIFFE RENTI AL/PL ATELE T baso (absolute) 0.0 x10e3 /uL 0.0-0. 2 Not Available [facility] ([facility]) [address] [facility], [place], [address], 06/27/2023 13:38:51 06/26/20 23 06/27/2023 CBC WITH DIFFE RENTI AL/PL ATELE T immature granulocytes 0 % not estab. Not Available [facility] ([facility]) [address] [facility], [place], [address], 06/27/2023 13:38:51 06/26/2006/27/2023 CBC WITH DIFFE RENTI AL/PL ATELE T immature grans (abs) 0.0 x10e3 /uL 0.0-0. 1 Not Available [facility] ([facility]) [address] [facility], [place], [address], 06/27/2023 13:38:51 06/26/2006/27/2023 CBC WITH DIFFE RENTI AL/PL ATELE T NRBC PLANT ASSOCIATE Not Available [facility] ([facility]) [address] [facility], [place], [address], 06/27/2023 13:38:51 06/26/2006/27/2023 CBC WITH DIFFE RENTI AL/PL ATELE T hematology comments: PLANT ASSOCIATE Not Available [facility] ([facility]) [address] [facility], [place], [address], 06/27/2023 13:38:51 06/26/2006/27/2023 LIPID PANEL cholesterol, total 180 mg/dL 100-19 9 Not Available [facility] ([facility]) [address] [facility], [place], [address], 06/27/2023 13:38:54 06/26/2006/27/2023 LIPID PANEL triglyceride s 382 mg/dL 0-149 above high normal Not Available [facility] ([facility]) [address] [facility], [place], [address], 06/27/2023 13:38:54 06/26/2006/27/2023 LIPID PANEL HDL cholesterol 38 mg/dL >39 below low normal Not Available [facility] ([facility]) [address] [facility], [place], [address], 06/27/2023 13:38:54 06/26/2006/27/2023 LIPID PANEL VLDL cholesterol cara 62 mg/dL 5-40 above high normal Not Available [facility] ([facility]) [address] [facility], [place], [address], 06/27/2023 13:38:54 06/26/20 23 06/27/2023 LIPID PANEL LDL chol calc ([email or web address] 80 mg/dL 0-99 Not Available [facility] ([facility]) [address] [facility], [place], [address], 06/27/2023 13:38:54 06/26/2006/27/2023 LIPID PANEL comment: PLANT ASSOCIATE Not Available [facility] ([facility]) [address] [facility], [place], [address], 06/27/2023 13:38:54 06/26/2006/27/2023 VERBA L ORDER see below: Commen t: Jennifer bonillai de reque sted infor fox piña and fax to [phone]. [place] requi res a writt en and darin d reque st be forwa rded to a labor atory follo wing a verba l order of a labor atory test. Jennifer lance maritza t us to meet this requi remen t and to compl ete our recor ds. Date: Diagn osis code( s) provi ded for this order : Z79.8 99 E78.0 0 Z80.4 1 Addit ional Diagn osis Code( s):__ _ Jennifer lance Print ICD-9 /10 Diagn osis Code( s):__ _ Physi marylou or Autho rized Desig nee:_ _ Pleas e Print Physi marylou or Autho rized Desig nee Signa ture: Your Signa ture Confi mel Your Order Of The Test( s) Armandoe vivian Not Available [facility] ([facility]) [address] [place], [address], 06/27/2023 15:10:22 06/26/20 23 06/27/2023 VERBMary Red ORDER additional test(s) requested Nicolette t: Test( s) added per saulo campos 06-27 Logge d by MARYSOL VIZCAINO Test# [id number] BRCAs sure Compr ehens sukhjinder Panel Not Available [facility] ([facility]) [address] [place], [address], 06/27/2023 15:10:22 06/26/20 23 06/27/2023 BRCAS SURE COMPR EHENS SUKHJINDER PANEL specimen type PLANT ASSOCIATE Not Available [facility] ([facility]) [address] [place], [address], 06/27/2023 13:38:52 06/26/20 23 06/27/2023 BRCAS SURE COMPR EHENS SUKHJINDER PANEL preauthoriza tion COMMEN T Prior autho mary cat. Test cance led by wade stern Not Available [facility] ([facility]) [address] [place], [address], 06/27/2023 13:38:52 06/26/20 23 06/27/2023 BRCAS SURE COMPR EHENS SUKHJINDER PANEL clinical indication PLANT ASSOCIATE Not Available [facility] ([facility]) [address] [facility], [place], [address], 06/27/2023 13:38:52 06/26/2006/27/2023 BRCAS SURE COMPR EHENS SUKHJINDER PANEL results TNP Test not perfo rmed Not Available [facility] ([facility]) [address] [facility], [place], [address], 06/27/2023 13:38:52 06/26/2006/27/2023 BRCAS SURE COMPR EHENS SUKHJINDER PANEL interpretati on PLANT ASSOCIATE Not Available [facility] ([facility]) [address] [facility], [place], [address], 06/27/2023 13:38:52 06/26/2006/27/2023 BRCAS SURE COMPR EHENS SUKHJINDER PANEL additional clinical inform. PLANT ASSOCIATE Not Available [facility] ([facility]) [address] [facility], [place], [address], 06/27/2023 13:38:52 06/26/2006/27/2023 BRCAS SURE COMPR EHENS SUKHJINDER PANEL recommendati ons PLANT ASSOCIATE Not Available [facility] ([facility]) [address] [facility], [place], [address], 06/27/2023 13:38:52 06/26/2006/27/2023 BRCAS SURE COMPR EHENS SUKHJINDER PANEL comments PLANT ASSOCIATE Not Available [facility] ([facility]) [address] [facility], [place], [address], 06/27/2023 13:38:52 06/26/2006/27/2023 BRCAS SURE COMPR EHENS SUKHJINDER PANEL methods and limitations PLANT ASSOCIATE Not Available [facility] ([facility]) [address] [facility], [place], [address], 06/27/2023 13:38:52 06/26/2006/27/2023 BRCAS SURE COMPR EHENS SUKHJINDER PANEL references PLANT ASSOCIATE Not Available [facility] ([facility]) [address] [place] [place], [address], 06/27/2023 13:38:52 06/26/2006/27/2023 BRCAS SURE COMPR EHENS SUKHJINDER PANEL released by PLANT ASSOCIATE Not Available [facility] ([facility]) [address] [place] [place], [address], 06/27/2023 13:38:52 06/26/2006/27/2023 BRCAS SURE COMPR EHENS SUKHJINDER PANEL pdf PLANT ASSOCIATE Not Available [facility] ([facility]) [address] [place] [place], [address], 06/27/2023 13:38:52 06/26/2006/27/2023 IESHA EN AUTHO RIZAT ION written authorizatio n Nicolette Wright en Autho rizat ion Recei maria g. Autho rizat ion recei maria g from jacob campbell 06-27 Logge d by Esa Marshall Not Available [facility] ([facility]) [address] [place], [address], 06/28/2023 11:13:14 04/03/20 24 04/04/2024 COMP. METAB OLIC PANEL (14) glucose 105 mg/dL 70-99 above high normal Not Available [facility] ([facility]) [address] [place], [address], 04/04/2024 07:15:24 04/03/20 24 04/04/2024 COMP. METAB OLIC PANEL (14) BUN 27 mg/dL 8-27 normal Not Available [facility] ([facility]) [address] [place], [address], 04/04/2024 07:15:24 04/03/20 24 04/04/2024 COMP. METAB OLIC PANEL (14) creatinine 1.18 mg/dL 0.76-1 .27 normal Not Available [facility] ([facility]) [address] [place], [address], 04/04/2024 07:15:24 04/03/20 24 04/04/2024 COMP. METAB OLIC PANEL (14) eGFR 68 mL/mi n/1.7 3 >59 normal Not Available [facility] ([facility]) [address] [place] [place], [address], 04/04/2024 07:15:24 04/03/20 24 04/04/2024 COMP. METAB OLIC PANEL (14) BUN/creatini ne ratio 23 10-24 normal Not Available [facility] ([facility]) [address] [place] [place], [address], 04/04/2024 07:15:24 04/03/20 24 04/04/2024 COMP. METAB OLIC PANEL (14) sodium 135 mmol/ L 134-14 4 normal Not Available [facility] ([facility]) [address] [place] [place], [address], 04/04/2024 07:15:24 04/03/20 24 04/04/2024 COMP. METAB OLIC PANEL (14) potassium 4.6 mmol/ L 3.5-5. 2 normal Not Available [facility] ([facility]) [address] [place], [address], 04/04/2024 07:15:24 04/03/20 24 04/04/2024 COMP. METAB OLIC PANEL (14) chloride 101 mmol/ L 96-106 normal Not Available [facility] ([facility]) [address] [place], [address], 04/04/2024 07:15:24 04/03/20 24 04/04/2024 COMP. METAB OLIC PANEL (14) carbon dioxide, total 22 mmol/ L 20-29 normal Not Available [facility] ([facility]) [address] [place], [address], 04/04/2024 07:15:24 04/03/20 24 04/04/2024 COMP. METAB OLIC PANEL (14) calcium 8.9 mg/dL 8.6-10 .2 normal Not Available [facility] ([facility]) [address] [place], [address], 04/04/2024 07:15:24 04/03/20 24 04/04/2024 COMP. METAB OLIC PANEL (14) protein, total 6.1 g/dL 6.0-8. 5 normal Not Available [facility] ([facility]) [address] [place] [place], [address], 04/04/2024 07:15:24 04/03/20 24 04/04/2024 COMP. METAB OLIC PANEL (14) albumin 4.4 g/dL 3.9-4. 9 normal Not Available [facility] ([facility]) [address] [place], [address], 04/04/2024 07:15:24 04/03/20 24 04/04/2024 COMP. METAB OLIC PANEL (14) globulin, total 1.7 g/dL 1.5-4. 5 Not Available [facility] ([facility]) [address] [place], [address], 04/04/2024 07:15:24 04/03/20 24 04/04/2024 COMP. METAB OLIC PANEL (14) bilirubin, total 0.4 mg/dL 0.0-1. 2 normal Not Available [facility] ([facility]) [address] [place], [address], 04/04/2024 07:15:24 04/03/20 24 04/04/2024 COMP. METAB OLIC PANEL (14) alkaline phosphatase 65 IU/L 44-121 normal Not Available [facility] ([facility]) [address] [place], [address], 04/04/2024 07:15:24 04/03/20 24 04/04/2024 COMP. METAB OLIC PANEL (14) AST (SGOT) 22 IU/L 0-40 normal Not Available [facility] ([facility]) [address] [facility], [place], [address], 04/04/2024 07:15:24 04/03/20 24 04/04/2024 COMP. METAB OLIC PANEL (14) ALT (SGPT) 25 IU/L 0-44 normal Not Available [facility] ([facility]) [address] [facility], [place], [address], 04/04/2024 07:15:24 04/03/20 24 04/04/2024 CBC, PLATE LET, NO DIFFE RENTI AL WBC 4.4 x10e3 /uL 3.4-10 .8 normal Not Available [facility] ([facility]) [address] [facility], [place], [address], 04/04/2024 07:15:24 04/03/2004/04/2024 CBC, PLATE LET, NO DIFFE RENTI AL RBC 4.05 x10e6 /uL 4.14-5 .80 below low normal Not Available [facility] ([facility]) [address] [place], [address], 04/04/2024 07:15:24 04/03/2004/04/2024 CBC, PLATE LET, NO DIFFE RENTI AL hemoglobin 12.9 g/dL 13.0-1 7.7 below low normal Not Available [facility] ([facility]) [address] [place], [address], 04/04/2024 07:15:24 04/03/2004/04/2024 CBC, PLATE LET, NO DIFFE RENTI AL hematocrit 38.3 % 37.5-5 1.0 normal Not Available [facility] ([facility]) [address] [place], [address], 04/04/2024 07:15:24 04/03/2004/04/2024 CBC, PLATE LET, NO DIFFE RENTI AL MCV 95 fL 79-97 normal Not Available [facility] ([facility]) [address] [facility], [place], [address], 04/04/2024 07:15:24 04/03/2004/04/2024 CBC, PLATE LET, NO DIFFE RENTI AL MCH 31.9 pg 26.6-3 3.0 normal Not Available [facility] ([facility]) [address] [facility], [place], [address], 04/04/2024 07:15:24 04/03/2004/04/2024 CBC, PLATE LET, NO DIFFE RENTI AL MCHC 33.7 g/dL 31.5-3 5.7 normal Not Available [facility] ([facility]) [address] [facility], [place], [address], 04/04/2024 07:15:24 04/03/2004/04/2024 CBC, PLATE LET, NO DIFFE RENTI AL RDW 13.0 % 11.6-1 5.4 Not Available [facility] ([facility]) [address] [facility], [place], [address], 04/04/2024 07:15:24 04/03/2004/04/2024 CBC, PLATE LET, NO DIFFE RENTI AL platelets 170 x10e3 /uL 150-45 0 normal Not Available [facility] ([facility]) [address] [place], [address], 04/04/2024 07:15:24 04/03/2004/04/2024 CBC, PLATE LET, NO DIFFE RENTI AL [employer] Not Available [facility] ([facility]) [address] [place], [address], 04/04/2024 07:15:24 04/03/20 24 04/04/2024 CREAT INE KINAS E,TOT AL creatine kinase,total 151 U/L 41-331 normal Not Available [facility] ([facility]) [address] [facility], [place], [address], 04/04/2024 07:15:25 04/03/20 24 04/04/2024 MAGNE SIUM magnesium 2.0 mg/dL 1.6-2. 3 normal Not Available [facility] ([facility]) [address] [facility], [place], [address], 04/04/2024 07:15:25 04/03/20 24 04/03/2024 urina lysis , dipst ick Leukocytes (reference range: negative eileen/ l) negati ve Not Available In-Office Order Internal Use Only DO Not Attach Compendium DO Not Attach Compendium, Do Not Delete/merge, 04/03/2024 12:40:34 04/03/20 24 04/03/2024 urina lysis , dipst ick Nitrite (reference range: negative mg/dl) negati ve Not Available In-Office Order Internal Use Only DO Not Attach Compendium DO Not Attach Compendium, Do Not Delete/merge, 04/03/2024 12:40:34 04/03/20 24 04/03/2024 urina lysis , dipst ick Urobilinogen (reference range: 0.2 - 1 mg/dl) 1 Not Available In-Off ice Order Internal Use Only DO Not Attach Compendium DO Not Attach Compendium, Do Not Delete/merge, 04/03/2024 12:40:34 04/03/20 24 04/03/2024 urina lysis , dipst ick Protein (reference range: negative mg/dl) 30 Not Available In-Off ice Order Internal Use Only DO Not Attach Compendium DO Not Attach Compendium, Do Not Delete/merge, 04/03/2024 12:40:34 04/03/20 24 04/03/2024 urina lysis , dipst ick pH (reference range: 5 - 7 units) 6 Not Available In-Off ice Order Internal Use Only DO Not Attach Compendium DO Not Attach Compendium, Do Not Delete/merge, 04/03/2024 12:40:34 04/03/20 24 04/03/2024 urina lysis , dipst ick Blood (reference range: negative rbc/ l) negati ve Not Available In-Office Order Internal Use Only DO Not Attach Compendium DO Not Attach Compendium, Do Not Delete/merge, 04/03/2024 12:40:34 04/03/20 24 04/03/2024 urina lysis , dipst ick Specific gravity (reference range: 1.005 - 1.030) 1.03 Not Available In-Off ice Order Internal Use Only DO Not Attach Compendium DO Not Attach Compendium, Do Not Delete/merge, 04/03/2024 12:40:34 04/03/20 24 04/03/2024 urina lysis , dipst ick Ketone (reference range: negative mg/dl) negati ve Not Available In-Office Order Internal Use Only DO Not Attach Compendium DO Not Attach Compendium, Do Not Delete/merge, 04/03/2024 12:40:34 04/03/20 24 04/03/2024 urina lysis , dipst ick Bilirubin (reference range: negative mg/dl) small Not Available In-Off ice Order Internal Use Only DO Not Attach Compendium DO Not Attach Compendium, Do Not Delete/merge, 04/03/2024 12:40:34 04/03/20 24 04/03/2024 urina lysis , dipst ick Glucose (reference range: negative mg/dl) negati ve Not Available In-Office Order Internal Use Only DO Not Attach Compendium DO Not Attach Compendium, Do Not Delete/merge, 04/03/2024 12:40:34 04/03/20 24 04/03/2024 urina lysis , dipst ick Appearance (reference range: clear) clear Not Available In-Off ice Order Internal Use Only DO Not Attach Compendium DO Not Attach Compendium, Do Not Delete/merge, 04/03/2024 12:40:34 07/1104/03/2024 urina lysis , dipst ick Color (reference range: yellow) yellow Not Available In-Off ice Order Internal Use Only DO Not Attach Compendium DO Not Attach Compendium, Do Not Delete/merge, [id number] 04/03/2024 12:40:34 Result Notes None recorded. Problems Name Problem SNOMED Code Status Onset Date Resolution Date Notes Provider Name and Address Organization Details Recorded Time Hypertensi ve disorder 95870640 Active 2022 Theresa Crowley LABEL TACKER null, [facility] 3 16:13:58 Hyperchole sterolemia 58802140 Active 2022 Theresa Crowley CMA null, [facility] 3 16:14:09 Arthritis 6400432 Active 2022 ORALIA BRAXTON, DO [address], [facility] [place], [address] , [facility] 3 17:19:57 Bilateral hearing loss 89185704 Active 2022 ORALIA BRAXTON, DO [address], [facility] [place], [address] , [place] [facility] 3 10:06:20 Family history of breast cancer gene BRCA mutation 1916721444754 8 Active 2022 ORALIA BRAXTON, DO [address], [facility] [place], [address] , [place] [facility] 3 10:06:36 Coronary arterioscl erosis 77996447 Active 2022 ORALIA BRAXTON, DO [address], [facility] [place], [address] , [facility] 3 10:07:39 Benign prostatic hyperplasi a 458127660 Active 2022 ORALIA BRAXTON, DO [address], [facility] [place], [address] , [facility] 3 10:08:37 Ex-smoker 3225559 Active 2022 ORALIA BRAXTON DO [address], [place], [address] , [facility] 3 10:10:41 Obesity 995879836 Active 2022 ORALIA BRAXTON DO [address], [place], [address] , [facility] 3 10:13:01 Body mass index 30+ - obesity 524782766 Active 2022 ORALIA BRAXTON DO [address], [place], [address] , [facility] 3 10:13:08 Vocal cord dysfunctio n 340542923 Active 2023 YESSENIA MCKENZIE MD [address], [place], [address] , [facility] 4 15:48:31 Essential hypertensi on 85910768 Active 2023 YESSENIA MCKENZIE MD [address], [place], [address] , [facility] 4 15:50:29 Overweight 430589316 Active 2023 YESSENIA MCKENZIE MD [address], [place], [address] , [facility] 4 15:51:56 Problem Notes None recorded. Procedures Surgical History Date Name Laterality Status Provider Name and Address Organization Details Recorded Time cardiopulmonary bypass operation completed Theresa Crowley CMA [facility] 04/25/2023 16:17:06 Imaging Results None recorded. Procedure Notes None recorded. Medical Equipment None Reported. Allergies No known drug allergies Medications Name Sig Start Date Stop Date Status Note LastModified by Organization Details LastModified Time losartan 50 mg tablet active Not Available Not Available Not Available quetiapine 25 mg tablet active Not Available Not Available Not Available fluoxetine 40 mg capsule TAKE 1 CAPSULE BY MOUTH EVERY DAY active Not Available Not Available No t Available primidone 50 mg tablet active Not Available Not Available Not Available atorvastat in 80 mg tablet TAKE 1 TABLET BY MOUTH DAILY active Not Available Not Available No t Available doxycyclin e hyclate 100 mg capsule 11/29 completed Not Available Not Available Not Available tizanidine 2 mg tablet TAKE 1 TABLET BY MOUTH AT NIGHT NEEDED active Not Available Not Available No t Available hydrocodon e 5 mg-acetami nophen 325 mg tablet TAKE 1 TABLET BY MOUTH EVERY 4-6 HOURS NEEDED FOR PAIN 01/17 completed Not Available Not Available Not Available meloxicam 15 mg tablet Take 1 tablet every day by oral route. active pt takes M-F Not Available Not Available Not Available hydroxyzin e HCl 50 mg tablet TAKE 1 TABLET BY MOUTH TWICE DAILY NEEDED active Not Available Not Available No t Available clopidogre l 75 mg tablet active Not Available Not Available Not Available amlodipine 5 mg tablet Take 1 tablet twice a day by oral route. active Not Available Not Available No t Available terbinafin e HCl 250 mg tablet TAKE 1 TABLET BY MOUTH EVERY DAY WITH FOOD 04/25 completed Not Available Not Available Not Available doxazosin 8 mg tablet Take 1 tablet every day by oral route. 04/03 completed Rx urolog y---ch anges to 4mg daily Not Available Not Available Not Available lorazepam 0.5 mg tablet TAKE 1 TABLET ON ARRIVAL TO PROCEDURE AFTER CONSENT FORMS SIGNED. MAY REPEAT DOSE IF NEEDED 07/24 completed Not Available Not Available Not Available baclofen 10 mg tablet TAKE 1-2 TABLET BY MOUTH EVERY NIGHT AT BEDTIME active Not Available Not Available No t Available amlodipine 10 mg tablet TAKE 1 TABLET BY MOUTH EVERY DAY active Not Available Not Available No t Available cephalexin 500 mg capsule Take 1 capsule every 12 hours by oral route. 11/29 completed Not Available Not Available Not Available pantoprazo le 40 mg tablet,del ayed release TAKE 1 TABLET BY MOUTH EVERY DAY active Not Available Not Available No t Available erythromyc in 5 mg/gram (0.5 %) eye ointment APPLY A SMALL AMOUNT INTO RIGHT UPPER EYELID TWICE DAILY FOR 14 DAYS AFTER SURGERY 04/25 completed Not Available Not Available Not Available losartan 25 mg tablet TAKE 1 TABLET DAILY DIRECTED active Not Available Not Available No t Available nitroglyce rin 0.4 mg sublingual tablet dissolve 1 tablet under the tongue every 5 minutes for up to 3 doses as needed for chest pain.call 911 active Not Available Not Available No t Available doxazosin 4 mg tablet TAKE 1 TABLET BY MOUTH DAILY active Not Available Not Available No t Available mupirocin 2 % topical ointment APPLY A SMALL AMOUNT TO TO THE AFFECTED AREA TWICE DAILY 01/17 completed Not Available Not Available Not Available mirtazapin e 15 mg tablet active Not Available Not Available Not Available fluoxetine 20 mg capsule TAKE 1 CAPSULE EVERY DAY active Not Available Not Available No t Available diazepam 5 mg tablet TAKE 1-2 TABLETS BY MOUTH 30 MINUTES PRIOR TO MRI FOR ANXIETY. DO NOT DRIVE WITH THIS MEDICATIO N active Not Available Not Available No t Available ezetimibe 10 mg tablet TAKE 1 TABLET BY MOUTH AT BEDTIME active Not Available Not Available No t Available alfuzosin ER 10 mg tablet,ext ended release 24 hr TAKE 1 TABLET BY MOUTH DAILY active Not Available Not Available No t Available metoprolol tartrate 25 mg tablet TAKE 1 TABLET BY MOUTH TWICE DAILY active Not Available Not Available No t Available prasugrel HCl 10 mg tablet TAKE 1 TABLET BY MOUTH EVERY DAY active Not Available Not Available No t Available Repatha SureClick 140 mg/mL subcutaneo us pen injector ADMINISTE R 1 INJECTION UNDER THE SKIN EVERY 2 WEEKS active Not Available Not Available No t Available Deconex DMX 10 mg-17.5 mg-400 mg tablet TAKE 1 TABLET BY MOUTH FOUR TIMES DAILY NEEDED FOR COUGH AND CONGESTIO N 04/25 completed Not Available Not Available Not Available Vitals Date Recorded Body height Body weight Body temperature Heart rate Respiratory rate Oxygen saturation Pain severity - 0-10 verbal numeric rating [Score] - Reported Systolic And Diastolic Provider Name and Address Organization Details Last Updated DateTime 4 180.34 cm 55613.9 8 g 98.1 [degF] 67 /min 17 /min 96 % 0 92/60 mm[Hg] Lilia Brewer [facility] 4 15:23:58 Date Recorded Body height Body mass index (BMI) Body weight Body temperature Heart rate Oxygen saturation Systolic And Diastolic Provider Name and Address Organization Details Last Updated DateTime 4 180.34 cm 29.8 kg/m2 42380.7 7 g 98.2 [degF] 70 /min 96 % 118/82 mm[Hg] Theresa Crowley [facility] 4 12:10:26 Date Recorded Body height Body mass index (BMI) Body weight Body temperature Heart rate Oxygen saturation Systolic And Diastolic Provider Name and Address Organization Details Last Updated DateTime 4 180.34 cm 28.2 kg/m2 01037.6 6 g 97.9 [degF] 71 /min 98 % 160/105 mm[Hg] Theresa Crowley CMA [facility] 4 08:09:44 Date Recorded Body height Body mass index (BMI) Body weight Body temperature Heart rate Respiratory rate Oxygen saturation Systolic And Diastolic Provider Name and Address Organization Details Last Updated DateTime 3 180.34 cm 30.1 kg/m2 83859.9 5 g 97.9 [degF] 65 /min 17 /min 97 % 111/74 mm[Hg] Theresa Crowley CMA [facility] 3 14:20:30 Date Recorded Body height Body mass index (BMI) Body weight Body temperature Heart rate Respiratory rate Oxygen saturation Systolic And Diastolic Provider Name and Address Organization Details Last Updated DateTime 3 180.34 cm 29.8 kg/m2 22538.7 7 g 97.3 [degF] 97 /min 17 /min 98 % 97/71 mm[Hg] Theresa Crowley CMA [facility] 3 11:07:26 Social History Question Answer Notes LastModified by Organizat [employer] Details LastModified Time Tobacco Smoking Status Never [facility] 16:16:10 What Was The Date Of Your Most Recent Tobacco Screening? 04/25/2023 [email or web address] Information not available 04/25/2023 Sex: Unknown Functional Status Question Answer Note LastModified by Organizat ion Details LastModified Time How many times per week do you consume alcohol? 1-2 times per week Information not available 04/25/2023 What is your level of alcohol consumption? Occasional [email or web address] Information not available 04/25/2023 Mental Status None recorded. Family History Relationship Description Onset Age of this Age Resolved Age Notes LastModified by Organization Details LastModified Time Mother Hypertensive disorder [email or web address] Not available 2022 16:14:46 Mother Malignant neoplastic disease Not available 2022 16:15:13 Maternal Grandfather Malignant neoplastic disease [email or web address] Not available 2022 16:15:13 Maternal Grandmother Malignant neoplastic disease [email or web address] Not available 2022 16:15:13 Brother Hypertensive disorder [email or web address] Not available 2022 16:15:21 Medical History Condition Response HIGH CHOLESTEROL Y HEARTBURN / REFLUX Y HYPERTENSION Y HEPATITIS / LIVER DISEASE N Immunizations Vaccine Type Date Status Note Provider Nam e and Address Organization Details Recorded Time influenza, unspecified formulation 2 completed Theresa Crowley, LABEL TACKER null, [facility] 06/25/2024 08:03:27 Influenza, high-dose, quadrivalent, PF 2 completed Theresa Crowley LABEL TACKER null, [facility] 06/25/2024 08:03:27 Influenza, split virus, quadrivalent, preservative 3 completed Janene Grey, LABEL TACKER null, [facility] 07/24/2023 16:03:21 Past Encounters Encounter ID Performer Location Encounter Start Date Encounter Closed Date Diagnosis/Indication Diagnosis SNOMED-CT Code Diagnosis ICD10 Code Diagnosis IMO Codes Diagnosis Note [id number] ORALIA BRAXTON DO [facility] [address] [place] [id number] 04/25/2023 15:23:00 04/27/2023 14:17:47 Arthritis 3604176 M19.90 pt takes 5 days per week and takes break on weekends for stomachsay s pain is so bad that he is willing to take cardio risk discuss with pt risk of medication with cardio condition and will discuss with Dr Powell for cruise 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 has used benzo for procedure and these were too much phq9 score 8gad 7 score 7start vistaril Bilateral hearing loss 32173561 H91.93 hearing aides b/l Family his tory of breast cancer gene BRCA mutation 1419356866 9108 Z84.81 pt mom with breast and ovarian cancer with BRCA gene positivept advised to get testingwe will plan for this is Fall 2022 once heart issues have been dealt with Coronary arteriosclerosis 39437498 I25.10 h/o bypass and AAA stentupcom ing stent in 1 week with cardio--dr barragan s: atorvastat in, metop, losartan, amlodipine , zetia done by cardio Benign pro static hyperplasia 143851949 N40.0 followed by urology--vivian burgos ds: doxasozin and alfuzosin done by urology Screening for malignant neoplasm of colon 193731946 Z12.11 pt has never had scopeno family h/o colon cancerbrca gene in mompt says [employer] mailing him kit--cont to follow Ex-smoker 0908987 Z87.89 1 pt quit 30 years ago Body mass index 30+ - obesity 363812115 Z68.30 healthy eating and return to [email or web address] once safe from cardio standpoint Obesity 443366202 E66.9 [id number] ORALIA BRAXTON, [facility] [place] [address] [place] [id number] 06/26/2023 11:23:49 06/28/2023 10:14:57 Family history of malignant neoplasm of ovary 479855287 Z80.41 brca 2 gene in mom who bird sovarian cancer and doc advised all children to be tested Hypercholesterolemia 136 44284 E78.00 obtain labspt has h/o heart stent and cardio wante dlabs and pt said he would get them done with [id number] Long-term drug therapy 238310426 Z79.899 Wears glasses 264324003 Z97.3 needs new eye glass prescripti on and says petra requires [facility] [place] Increased stress 2974021 4 Z73.3 1023say s prozac was helpful in the pastno help from vistaril.. .d/c this medstart prozac 20mg dailyf/u 1 month----- ------pt is taking care of dying mother and dealing with his own heart stuffhad daily acting meds in past and these didnt make him feel good. has used benzo for procedure and these were too much phq9 score 8gad 7 score 7start vistaril [id number] ORALIA BRAXTON, DO [place] [address] [address] [place] [id number] 07/16/2023 14:10:22 07/23/2023 15:17:14 Obesity 180386155 E66.9 Injury of great toenail 335287245 S99.922A left great toe nail painpt says it has been red, swollen, tneder...h e has been using hydrogen peroxide and neosporint oe with lateral edge area of dried blood no red or tender an dno drainageok for warm water soaks and canback off hydrogen peroxide/n eopsprionk eep clean and drypt has appt with podiatry in Jul for toenail removalcon t to follow [id number] ORALIA BRAXTON, DO [place] [address] [address] [place] [id number] 07/24/2023 10:49:08 07/24/2023 13:55:03 Overweight 746903047 E66.3 Administra tion of influenza vaccine 27652271 Z23 Increased stress 7349538 4 Z73.3 07-24-23do ing well with current regimen and says he has noticed he feels more happycont prozac 20mg dailyf/u 6 monthsphq9 score 4gad7 score 3 06-26-23y s prozac was helpful in the pastno help from vistaril.. .d/c this medstart prozac 20mg dailyf/u 1 month----- ------pt is taking care of dying mother and dealing with his own heart stuffhad daily acting meds in past and these didnt make him feel good. has used benzo for procedure and these were too much phq9 score 8gad 7 score 7start vistaril [id number] YESSENIA MCKENZIE MD [facility] [place] [address] [place] [address] 01/18/2024 15:13:28 01/22/2024 16:13:37 Vocal cord dysfunction 607100545 R49.9 68M presents for routine f/u hoarseness noted; ongoing since CABG 2 mo ago. ?Vocal cord injury from surgery. Please evaluate and treat. - ent referral- declines speech at this time. having knee replacemen t will have to help her w therapy /recovery. Cautioned not to wait too long. Essential hypertension 09780790 I10 per Vascular surgery / Cards.- I recommend discussion regarding dizzy spells. Agree low BP can help reduce chance of AAA advancing but also can cause acute issues.- If reducing any, would ask about going to once daily amlodipine 5mg (vs his current bid dosing). Overweight 237338609 E66 .3 Increased stress 4866571 4 Z73.3 01/17- improving; inc to 40mg.-rtc in 3mo -- no labs.----- -------- 07-24-do ing well with current regimen and says he has noticed he feels more happycont prozac 20mg dailyf/u 6 monthsphq9 score 4gad7 score 3 06-26-23say s prozac was helpful in the pastno help from vistaril.. .d/c this medstart prozac 20mg dailyf/u 1 month----- ------8-2- 23pt is taking care of dying mother and dealing with his own heart stuffhad daily acting meds in past and these didnt make him feel good. has used benzo for procedure and these were too much phq9 score 8gad 7 score 7start vistaril [id number] ORALIA BRAXTON, [facility] [place] [address] [place] [id number] 04/03/2024 11:57:31 04/03/2024 16:21:49 Overweight 275458908 E66.3 Chronic hoarseness 57028 69556 105 R49.0 04-03-24see n by ENT January 2024 with flex endoscopy and spastic dysphonia note dper chart reveiw with pt referred [facility] for additional workuphas not been to [facility] yet---appt in Apr Spasm 32995021 R25.2 start in feet and hands once laying down and have spread to body and facept is awake throughout and aware but cant control the movementso nset: 5 days agooccurs in waves and is jerky and has involuntar y vocal soundspy is laying down and these have happened only at night as he starts going to bedepisode last 1 minute -4 minutes with as many as 5 episodes occuring over night in a cluster fashion... pt has been able to sleep and then is able to wake up and not have any episodesde nies short of breathdeni es chest pain or palpitatio nshas some diaphoresi s intermitte nt with eventshead ache following morningno new meds recently-- Prozac dose increased 3 months ago to 40mgIncrea se stress as home taking care of who is recent hospital dischargef luid hydration: endorses dehydratio n but does drink water with ice daily Plan: obtain labs CBC, cmp, magnesium, CK and UA and shpae therapy accordingl yincrease oral hydration: water, Gatorade, pickle juice, popsicles, soupwork to stretch and engage calf, forerams and muscles throughout the day and befor ebedf/u with phone call 1 dayGo to ER with worsening symtpoms, longer lasting episodes sob or chest pain--voic es agreementm ay [facility] if we decide to ad dmuscle relaxer [id number] MD TI[facility]IE [facility] [address] [facility] [address] [place] [address] 04/18/2024 14:53:07 04/18/2024 21:58:23 [id number] MD TIFFANIE MARK IN [facility] [address] [facility] [address] [place] [address] 05/20/2024 14:45:52 05/20/2024 19:32:26 [id number] BELGICA RIVERA MD [facility] [address] [facility] [address] [place] [address] 06/03/2024 09:57:50 06/09/2024 12:34:15 [id number] BELGICA RIVERA MD [facility] [address] [facility] [address] [place] [address] 06/20/2024 12:58:52 06/25/2024 07:22:27 [id number] ORALIA BRAXTON DO [facility] [place] [address] [place] [address] 06/25/2024 08:02:26 06/25/2024 16:15:55 Neck pain 06101505 M54.2 c/o neck painhas seen ER and neruosurg with plans for surgical interventi on Pre-surger y evaluation 208358226 Z01.818 planned anterior cervical diskectomy and fusion C4-5, c5-6 and c6-[address] rivera 07/07/24pt has pre-op visit dr rivera 07-02-24 and pt brother Fabiano is in town and will be going with him and has several questions regarding procedure and post-op RECOMMEND FOR LTAC FACILITY AT DISCHARGE DUE TO PATIENT LIVING ALONE AND IN ACUTE STRESS/GRI EF plan for 07-02-24 pre-op with neurosirg as scheudled and can re-eval from pcp standpoint I have contacted Dr Rivera and left message to discuss patient case Acute stress disorder 67 832476 F43.0 pt brother state spt has called him marbin glover talking out of his mnd and is acting paranoid about the fact pt neighbor is state [place] Pt is having difficult time with of and having medical issues himself requiring neurosurg intesada Parker has been to ER multiple times and had poor experience and is upset with servicesPt has hearing loss and wears hearing aides and has dysphonia and is difficult to understand due to voice strain and this adds frustratio n/complica tions to medical care Pt is AO x 4 today--leelee f//toda ys day/year and location and dr braxton unable to complete PHQ9 and GAD7 as patient would not answer the direct question not at all, some days/most days//ever y day and instead had a story to tell with each repsonse and his brother kept cutting him off--pt denies thoughts of suicide, self harm or harm to others--pt brother says that weapons have been locked up and plan to give to neighbor who is in policie force He has multiple medication prescripti ons from several doctors in different visits no believe [employer] cy is a part. start counsleing recommend for [facility] as they have psych services for in-pt admission if concerns escalate Medication review done by doctor [id number] Z76.89 pt has been taking hydrocodon e rx from who has (he states he only took 2 tabs)--thi s bottle is discarded into sharps container in clinicpt has [id number] mg rx 1-2tabs po at ightprimid one 50mg--4 tabs po at nighthydir xyzine prn--d/c hydroxyzin ebaclofen changed to 1 tab po nightly 60 minutes before bedand promidone changed to 3 tabs po 30minutes before bed Health Concerns Section Related Observation LastModified by Organization Detai ls LastModified Time None Recorded Concern Status LastModified by Organization Details LastModified Time None Recorded Advance Directives Directive None Recorded Payers Insurance Date Sequence Insurance Name Policy Number Policy Ceron Covered Member ID Ceron Member ID Guarantor Name 04/09/2025 1 [employer] (MEDICARE REPLACEMENT/A DVANTAGE - HMO) Sagar Romero [id number] Sagar Romero Notes Date Note Type Note Provider Name and Address Organization Details Recorded Time 07/16/2023 text/html 67-year-old male as a add on visit walk-in to clinic with complaint of left great toenail infection. He states that he made an appointment through his insurance for upcoming podiatry and was told to have it treated with antibiotics prior to toenail extraction. Patient states he has been using hydrogen peroxide Neosporin and toenail no longer has redness, pain or swelling that he experience when he initially made the podiatry appointment. He has no fever chills and has no known injury or trauma to the toe ORALIA BRAXTON DO [address], [place], [id number], [facility] 07/21/2023 11:09:15 07/24/2023 text/html 67-year-old male presents clinic for follow-up of increased stress and depression. He states he has been taking the Prozac daily and has noticed a big difference as he feels happier and wants to be doing things. He did notice that his mood was down he has been taking the medicine is feels better. He would like to stay with current dose he has had no issues while taking his medicine. ORALIA BRAXTON DO [address], [place], [id number], [facility] 07/24/2023 13:47:17 01/18/2024 text/html 68 yo M presents to clinic for refills of medications. He is asking for a 90 day supply of proszac. No changes since last visit. Patient denies any urgent concerns or request at this time.Vitals stable. Does need refills of medications. MDD/VICENTE - pt notes improved w Prozac but would like dose inc Hypotension (relative) - pt notes this is right where they want me per vascular surgeon d/t AAA. Pt has brought it to their attention but they have not wanted to reduce medications. YESSENIA MCKENZIE MD [address], [place], [id number], [facility] 01/18/2024 15:53:08 04/03/2024 text/html cc of seizure at night 68-year-old male presents to clinic with concern of muscle spasms and shaking episodes. He states these began 5 days ago and occurred each evening. He describes these episodes as muscle cramps and twitching starting in his legs or forearms and spreading over the course of his body into his jaw. Each episode last 1-4 minutes and occurs in a wave-like pattern sometimes turkey. He is awake and aware the entire episode does not have any bowel or bladder incontinence no chest pain or palpitations no shortness of breath has not had any vomiting. He states he does have a headache the next morning after these events per he has not had any medication changes. He is taking care of his as the primary caregiver home from recent hospitalization and does have some increased stress in his day-to-day life. He does endorse not drinking as much fluids as he knows he should. He has not had any changes in vision or hearing. ORALIA BRAXTON DO [address], [place], [id number], [facility] 04/03/2024 14:00:06 06/25/2024 text/html 68-year-old male is brought to clinic by his brother Fabiano for evaluation of neck pain for planned surgical evaluation with surgery pending July 07, 2024 for anterior diskectomy with cervical fusion C4 through C7. Patient's brother states that he had to come to [place] from [place] as he received multiple phone calls from his brother who was talking out of his head . Patient's unexpectedly within the past few months and the trauma and stress the emotions of losing her now seems to be heading patient. Additionally he is having undergo of major neuro surgical procedure himself. He has been to the emergency room multiple times and feels as if he has had poor service done. He has multiple medication prescriptions from several doctors in different visits no believe polypharmacy is a part. ORALIA BRAXTON DO [address], [place], [id number], [facility] 06/25/2024 14:33:30
--- OUTSIDE RECORDS SUMMARY | 2025-08-19 10:42 | XMS_ITS | Data Portability ---
Author Organization [facility] fabián Gilda, [employer] - [facility] Address [address] [facility] [place] [address] Assessment Encounter Date Assessment Date Assessment LastModified by Organization Details LastModified Time 04/18/2024 04/18/2024 Time spent face to face with the patient, reviewing their symptoms and history, examining them, counseling them, discussing their diagnosis and treatment plan: 35 min Time spent placing orders, reviewing PDMP data, completing documentation : 10 min Not available 04/18/2024 16:15:13 05/20/2024 05/20/2024 Time spent face to face with the patient, reviewing their symptoms and history, examining them, counseling them, discussing their diagnosis and treatment plan: 35 min Time spent placing orders, reviewing PDMP data, completing documentation : 10 min Not available 05/20/2024 15:54:06 Plan of Treatment Reminders Order Date Submit Date Provider Last Modified By Organization Details Last Modified Time Details Appointments None recorded. Lab None recorded. Referral None recorded. Procedures None recorded. Surgeries None recorded. Imaging MRI, cervical spine, w/o contrast 2023 [facility], [address] [place], [address], 14:04:10 Medication Orders primidone 50 mg tablet 2023 024 MALABAR [facility] #[id number], [address], [place], [place], [phone], 15:54:16 baclofen 10 mg tablet 2023 024 DENISHA [id number], [address], [place], [place], [phone], 4 16:11:13 Patient TargetsNo targets recorded. Patient InstructionsNo instructions recorded. Reason for Referral None Reported. Results Created Date Observation Date Name Description Value Unit Range Abnormal Flag Note LastModifiedBy Organization Detail LastModifiedTime 05/19/20 24 05/19/2024 MRI, cervi cara spine , w/o contr [facility] [address] [facility] [id number] [phone] IMAGIN G REPORT ------ ------ ------ ------ ------ ------ ------ ------ ------ ------ ------ ---- NAME: SAGAR CLARK Room #: : 1954 Accoun t #: [id number] Bed #: Age: 68 Patien t Type: RA3 Exam Date/T catracho: Sex: M 2023 10:37: 00 Order #: Access ion #: Exam Descri ption: [id number] [place] [address] Dictat ed by: Taras Stout Physic hugo: SATINDER FRENCH ON Attend ing Physic hugo: SATINDER FRENCH ON Primar y Care Physic hugo:JESSICA MACKENZIE Y ------ ------ ------ ------ ------ ------ ------ ------ ------ ------ ------ ---- FINAL REPORT MRI cervic al spine Histor y: R 29.2 Techni que: Multip lanar, multis equenc e MR imagin g of the cervic al spine withou t contra st. Compar kasey: None Findin gs: Straig htenin g of the normal cervic al lordos is likely due to positi oning versus spasm. Disc desicc ation with disc height loss from C4 throug h C7. Bone marrow signal is within normal limits . Prever tebral soft tissue s are within normal limits . Visual ized spray crew ior fossa struct ures are within normal limits . The cervic al spinal cord exhibi ts normal signal and morpho logy. C2-3: Small spray crew ior disc osteop hyte comple x with left greate r than right uncove rtebra l hypert rophy and facet arthro ladarius result ing in modera te left-s ided neural forami nal narrow ing withou t signif icant spinal stenos is or right neural forami nal narrow ing. C3-4: Small spray crew ior disc osteop hyte comple x with mild uncove rtebra l hypert rophy and facet nephro ladarius. No signif icant spinal stenos is or neural forami nal narrow ing. C4-5: Survey Coordinator ior disc osteop hyte comple x with right greate r than left uncove rtebra l hypert rophy and facet arthro ladarius with efface ment of the anteri or thecal sac and anteri or spinal cord with modera te to severe spinal stenos is with residu al AP spinal canal diamet er measur es 0.7 Page 1 of 2 [facility] [address] [facility] [address] ROSEANNA G REPORT ------ ------ ------ ------ ------ ------ ------ ------ ------ ------ ------ ---- NAME: SAGAR CLARK Room #: : 1954 Accoun t #: [id number] Bed #: Age: 68 Patien t Type: RA3 Exam Date/T catracho: Sex: M 2023 10:37: 00 Order #: Access ion #: Exam Descri ption: [id number] [place] [id number] Dictat ed by: Taras Dudley Orderi ng Physic hugo: SATINDER FRENCH ON Attend ing Physic hugo: SATINDER FRENCH ON Primar y Care Physic hugo:JESSICA MACKENZIE ------ ------ ------ ------ ------ ------ ------ ------ ------ ------ ------ ---- FINAL REPORT cm. Severe right- sided neural forami nal narrow ing with mass effect on the exitin g right C5 nerve root. Mild left-s ided neural forami nal narrow ing. C5-6: Survey Coordinator ior disc osteop hyte comple x with bilate ral uncove rtebra l hypert rophy and facet arthro ladarius result ing in efface ment anteri or thecal sac and anteri or spinal cord with modera te spinal stenos is. Mild to modera te bilate ral neural forami nal narrow ing. C6-7: Survey Coordinator ior disc osteop hyte comple x with bilate ral uncove rtebra l hypert rophy and facet arthro ladarius result ing in efface ment of the anteri or thecal sac and anteri or spinal cord with modera te spinal stenos is and modera te bilate ral neural forami nal narrow ing. C7-T1: No spinal stenos is or neural forami nal narrow ing. Impres zoie: 1. Diffus e degene rative change s throug hout the cervic al spine, most signif icant at C4-5 result ing in modera te to severe spinal stenos is and severe right- sided neural forami nal narrow ing. Please level by level discus zoie above and recomm end correl ation with radicu lar sympto ms. Electr onical ly Signed By: Taras Dudley MD on 024 11:25 CC: SATINDER FRENCH ON SATINDER FRENCH ON JESSICA STEWART Page [address] [facility]iology [address], [place], [address], 07/16/2024 13:46:12 Result Notes Documentation Provider Name and Address Organization Details Recorded Time Mri, Cervical Spine, W/o Contrast : [facility] [address] [place] [address] IMAGING REPORT NAME: SAGAR ROBERTSON Room #: : 1955 Bed #: Age: 68 Patient Type: RA3 Exam Date/Time: Sex: M 05/19/2024 10:37:00 Order #: Accession #: Exam Description: [id number] [place] [address] Dictated by: Taras Dudley Ordering Physician: AMY FRENCH Attending Physician: AMY FRENCH Primary Care Physician:INGE BRAXTON FINAL REPORT MRI cervical spine History: R 29.2 Technique: Multiplanar, multisequence MR imaging of the cervical spine without contrast. Comparison: None Findings: Straightening of the normal cervical lordosis likely due to positioning versus spasm. Disc desiccation with disc height loss from C4 through C7. Bone marrow signal is within normal limits. Prevertebral soft tissues are within normal limits. Visualized posterior fossa structures are within normal limits. The cervical spinal cord exhibits normal signal and morphology. C2-3: Small posterior disc osteophyte complex with left greater than right uncovertebral hypertrophy and facet arthropathy resulting in moderate left-sided neural foraminal narrowing without significant spinal stenosis or right neural foraminal narrowing. C3-4: Small posterior disc osteophyte complex with mild uncovertebral hypertrophy and facet nephropathy. No significant spinal stenosis or neural foraminal narrowing. C4-5: Posterior disc osteophyte complex with right greater than left uncovertebral hypertrophy and facet arthropathy with effacement of the anterior thecal sac and anterior spinal cord with moderate to severe spinal stenosis with residual AP spinal canal diameter measures 0.7 Page 1 of 2 [facility] [address] [place] [address] IMAGING REPORT NAME: SAGAR ROBERTSON Room #: : 1955 Bed #: Age: 68 Patient Type: RA3 Exam Date/Time: Sex: M 05/19/2024 10:37:00 Order #: Accession #: Exam Description: [id number] [place] [address] Dictated by: Taras Dudley Ordering Physician: AMY FRENCH Attending Physician: AMY FRENCH Primary Care Physician:INGE BRAXTON FINAL REPORT cm. Severe right-sided neural foraminal narrowing with mass effect on the exiting right C5 nerve root. Mild left-sided neural foraminal narrowing. C5-6: Posterior disc osteophyte complex with bilateral uncovertebral hypertrophy and facet arthropathy resulting in effacement anterior thecal sac and anterior spinal cord with moderate spinal stenosis. Mild to moderate bilateral neural foraminal narrowing. C6-7: Posterior disc osteophyte complex with bilateral uncovertebral hypertrophy and facet arthropathy resulting in effacement of the anterior thecal sac and anterior spinal cord with moderate spinal stenosis and moderate bilateral neural foraminal narrowing. C7-T1: No spinal stenosis or neural foraminal narrowing. Impression: 1. Diffuse degenerative changes throughout the cervical spine, most significant at C4-5 resulting in moderate to severe spinal stenosis and severe right-sided neural foraminal narrowing. Please level by level discussion above and recommend correlation with radicular symptoms. 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 Procedures Surgical History Date Name Laterality Status Provider Name and Address Organization Details Recorded Time cardiopulmonary bypass operation completed Daniella Patrick CMA [facility] 04/18/2024 15:34:13 placement of stent in pulmonary artery completed Daniella Patrick CMA [facility] 04/18/2024 15:34:29 aneurysmotomy completed Daniella Patrick CMA [facility] 04/18/2024 15:34:52 Imaging Results None recorded. Procedure Notes None recorded. Medical Equipment None Reported. Allergies No known drug allergies Medications Name Sig Start Date Stop Date Status Note LastModified by Organization Details LastModified Time losartan 50 mg tablet active Not Available Not Available No t Available quetiapine 25 mg tablet active Not Available Not Available Not Available fluoxetine 40 mg capsule TAKE 1 CAPSULE BY MOUTH EVERY DAY 05/20 completed Not Available Not Available Not Available primidone 50 mg tablet begin 1 tab before bed x14 days, then increase to 2 tabs x14 days, then increase to 3 tabs x14 days, then 4 tabs thereafte r active Not Available Not Available No t Available atorvastati n 80 mg tablet TAKE 1 TABLET BY MOUTH DAILY active Not Available Not Available No t Available doxycycline hyclate 100 mg capsule 05/20 completed Not Available Not Available Not Available tizanidine 2 mg tablet TAKE 1 TABLET BY MOUTH AT NIGHT NEEDED active Not Available Not Available No t Available hydroxyzine HCl 50 mg tablet TAKE 1 TABLET BY MOUTH TWICE DAILY NEEDED active Not Available Not Available No t Available clopidogrel 75 mg tablet active Not Available Not Available Not Available amlodipine 5 mg tablet TAKE 1 TABLET BY MOUTH TWICE DAILY active Not Available Not Available No t Available baclofen 10 mg tablet TAKE 1-2 TABLET BY MOUTH EVERY NIGHT AT BEDTIME active Not Available Not Available No t Available amlodipine 10 mg tablet active Not Available Not Available Not Available pantoprazol e 40 mg tablet,germán yed release TAKE 1 TABLET BY MOUTH EVERY DAY active Not Available Not Available No t Available losartan 25 mg tablet TAKE 1 TABLET DAILY DIRECTED active Not Available Not Available No t Available doxazosin 4 mg tablet TAKE 1 TABLET BY MOUTH DAILY active Not Available Not Available No t Available mupirocin 2 % topical ointment APPLY A SMALL AMOUNT TO TO THE AFFECTED AREA TWICE DAILY 05/20 completed Not Available Not Available Not Available mirtazapine 15 mg tablet active Not Available Not Available Not Available fluoxetine 20 mg capsule TAKE 1 CAPSULE BY MOUTH [...] No t Available alfuzosin ER 10 mg tablet,exte nded release 24 hr TAKE 1 TABLET BY MOUTH DAILY active Not Available Not Available No t Available metoprolol tartrate 25 mg tablet TAKE 1 TABLET BY MOUTH TWICE DAILY active Not Available Not Available No t Available prasugrel HCl 10 mg tablet TAKE 1 TABLET BY MOUTH EVERY DAY active Not Available Not Available No t Available Repatha SureClick 140 mg/mL subcutaneou s pen injector ADMINISTE R 1 INJECTION UNDER THE SKIN EVERY 2 WEEKS active Not Available Not Available No t Available Vitals Date Recorded Body height Body mass index (BMI) Body weight Heart rate Heart rate Body temperature Systolic And Diastolic Provider Name and Address Organization Details Last Updated DateTime 180.34 cm 29.9 kg/m2 56310.9 2 g 64 /min 64 /min 97.3 [degF] 135/88 mm[Hg] Daniella Patrick [facility] 15:30:30 Date Recorded Body height Body mass index (BMI) Body weight Heart rate Systolic And Diastolic Provider Name and Address Organization Details Last Updated DateTime 05/20/2024 180.34 cm 29 kg/m2 15709.21 g 82 /min 91/58 mm[Hg] Thania Almonte [facility] 05/20/2024 14:54:02 Social History None recorded. Functional Status None recorded. Mental Status None recorded. Family History Relationship Description Onset Age of this Age Resolved Age Notes LastModified by Organization Details LastModified Time Mother Hypertensive disorder [email or web address] Not available 2023 15:32:59 Mother Cancerous ulcer Not available 2023 15:33:29 Brother Hypertensive disorder [email or web address] Not available 2023 15:33:00 Maternal Grandmother Cancerous ulcer [id number] Not available 2023 15:33:29 Maternal Grandfather Cancerous ulcer [email or web address] Not available 2023 15:33:29 Medical History Condition Response Trigeminal neuralgia N NERVE DISEASE N RHEUMATIC FEVER N STROKE N KIDNEY STONES N ADD N RADIATION / CHEMOTHERAPY N TIA N ENDOCRINE N SEIZURES N BOWEL PROBLEMS N DEPRESSION (INCLUDING POST ) N FEMALE PROBLEMS / INFECTIONS N THYROID DISEASE N ULCERS N Mental Disorder N BLADDER CANCER N HIV / AIDS N OBESITY N EXCESSIVE PERSPIRATION N ALZHEIMERS N ANEURYSM N URINARY/BLADDER/KIDNEY PROBLEMS N USE OF BLOOD THINNERS N HEADACHES N SKIN PROBLEMS N PARATHYROID DISEASE N PERIPHERAL VASCULAR DISEASE N DVT N GASTROINTESTINAL BLEEDING N BLOOD CLOTS N ASTHMA N USE OF NSAIDS N CONCUSSION OR SPINAL TRAUMA N VARICOSITIES N NEUROPATHY N Cerebral Palsy N LUNG DISORDER N CVA N HYPERTENSION Y ANXIETY DISORDER N ANEMIA/BLOOD DISORDER N BRONCHITIS N HEART DISEASE Y TUBERCULOSIS N PARKINSONS N DIABETES N PROSTATE N EYE PROBLEMS N CAROTID BLOCKAGE N BACK / NECK PROBLEMS N HAVE YOU BEEN HOSPITALIZED OR SEEN IN [facility] ER IN THE PAST YEAR ? N MIGRAINES N ATHEROSCLEROSIS N BREAST PROBLEMS N HERNIATED DISC N DIALYSIS N ADHD N ESSENTIAL TREMOR N FIBROMYALGIA N OSTEOPOROSIS N ARTHRITIS N RLS N HIGH CHOLESTEROL Y HEARTBURN / REFLUX Y MEMORY LOSS N PLEURISY N PATIENT DENIES SIGNIFICANT PAST MEDICAL HISTORY N Multiple Sclerosis N HEPATITIS / LIVER DISEASE N PROSTATE CANCER N PULMONARY DISEASE N GOUT N SLEEP DISORDER N DEMENTIA N HERPES N RETINOPATHY N ALLERGIES N VASCULAR DISEASE N DIZZINESS N HEAD TRAUMA OR INJURY N EAR PROBLEMS N KIDNEY DISEASE N TMJ N CARDIAC ARRHYTHMIA N Cholelithiasis (Gallstones) N CANCER: SPECIFY N PNEUMONIA N PULMONARY EMBOLISM N CORONARY ARTERY DISEASE N Past Encounters Encounter ID Performer Location Encounter Start Date Encounter Closed Date Diagnosis/Indication Diagnosis SNOMED-CT Code Diagnosis ICD10 Code Diagnosis IMO Codes Diagnosis Note [id number] INGE BRAXTON DO [facility] [address] [place] [id number] 04/25/2023 15:23:00 04/27/2023 14:17:47 [id number] INGE BRAXTON DO [facility] [address] [place] [id number] 06/26/2023 11:23:49 06/28/2023 10:14:57 [id number] INGE BRAXTON DO [facility] [address] [place] [id number] 07/16/2023 14:10:22 07/23/2023 15:17:14 [id number] INGE BRAXTON DO [facility] [address] [place] [id number] 07/24/2023 10:49:08 07/24/2023 13:55:03 [id number] YESSENIA MCKENZIE MD [facility] [address] [place] [id number] 01/18/2024 15:13:28 01/22/2024 16:13:37 [id number] INGE BRAXTON DO [facility] [address] [place] [id number] 04/03/2024 11:57:31 04/03/2024 16:21:49 [id number] MD TIFFANIE MARK IN [facility] [address] [facility] [address] [place] [id number] 04/18/2024 14:53:07 04/18/2024 21:58:23 Essential tremor 155379383 G25.0 Spasm 54098749 R25.2 Trial baclofen at night before bed for symptomati c relief Hyperreflexia 81552969 R 29.2 Suspect cervical spine compressio n may be cause of his muscle spasms and hypperrefl exia on examNeeds MRI C spine 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 Will continue to discuss at follow up Essential tremor 9251730 09 G25.0 start trial of primidone with taper up to 200mg qhs Spasm 48408769 R25.2 Continue baclofen at night as needed before bed for symptomati c relief [id number] MD [facility] [place] [address] [facility] [address] [place] [id number] 06/03/2024 09:57:50 06/09/2024 12:34:15 [id number] MD [facility] [place] [address] [facility] [address] [place] [id number] 06/20/2024 12:58:52 06/25/2024 07:22:27 [id number] INGE BRAXTON DO [facility] [address] [place] [id number] 06/25/2024 08:02:26 06/25/2024 16:15:55 Health Concerns Section Related Observation LastModified by Organization Detai ls LastModified Time None Recorded Concern Status LastModified by Organization Details LastModified Time None Recorded Advance Directives Directive None Recorded Payers Insurance Date Sequence Insurance Name Policy Number Policy Ceron Covered Member ID Ceron Member ID Guarantor Name 04/09/2025 1 [employer] (MEDICARE REPLACEMENT/A DVANTAGE - HMO) Sagar Robertson [id number] Sagar Robertson Notes Date Note Type Note Provider Name and Address Organization Details Recorded Time 04/18/2024 text/html This is a 68 year old man with history of hypertension, HLD, CAD, spasmodic dysphonia, referred to neurology clinic for evaluation of events of body shaking and spasm.He states that about 2 weeks ago he started having events where he lays down and then begins having twitching in his extremities. Muscles spasm and extremities jerk. This involves both arms and hands, up to his mouth. He is awake and alert, remembers these events. They can last seconds to several minutes. He can have up to 6-7 events like this in a night. He does not have symptoms during the day. His PCP gave him tizanidine 2mg and suggested aggressive hydration, which did not seem to help. AMY FRENCH MD [address], [place], [address], [facility] 04/18/2024 16:17:18 05/20/2024 text/html This is a 68 year old man with history of hypertension, HLD, CAD, spasmodic dysphonia, referred to neurology clinic for evaluation of events of body shaking and spasm.He states that about 2 weeks ago he started having events where he lays down and then begins having twitching in his extremities. Muscles spasm and extremities jerk. This involves both arms and hands, up to his mouth. He is awake and alert, remembers these events. They can last seconds to several minutes. He can have up to 6-7 events like this in a night. He does not have symptoms during the day. His PCP gave him tizanidine 2mg and suggested aggressive hydration, which did not seem to help. History 05/20/24: Last clinic appt I put him on baclofen and he says this greatly helped his spasms. Eventually he says it started to affect his stomach and gave him a lot of nausea and upset stomach so he stopped taking it and the cramps haven't returned nearly as badly as prior to being on baclofen.He also had an MRI C spine that showed severe stenosis at C4-5 with flattening of the anterior cord. There is severe disc breakdown, bulge and some retrolithesis at that level. We reviewed the images visually together in clinic today. I think he needs to see a surgeon. He says that he [place] [facility] [place] [facility] [place] that but [place]Regarding his spasmodic dysphonia, he says that and his tremor were much better when he took valium for his MRI. He wants to try some alternative treatments to see if he can get similar improvments on non-BZD meds. AMY FRENCH MD [address], [place], [address], [facility] 05/20/2024 15:54:23
--- OUTSIDE RECORDS SUMMARY | 2025-08-19 10:42 | XMS_ITS | Data Portability ---
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 Lab None recorded. Referral None recorded. Procedures None recorded. Surgeries anterior cervical discectomy and fusion for decompressi on (SURG) 2023 024 [email or web address] 5 Not available 4 17:00:41 arthrodesis , cervical, by anterior interbody technique (SURG) 2023 024 [email or web address] 5 Not available 4 17:00:41 arthrodesis , cervical, by anterior interbody technique (SURG) 2023 024 [email or web address] 5 Not available 4 17:00:41 insertion of interbody biomechanic al device(s) to interverteb ral disc space, with interbody arthrodesis , each interspace (SURG) 2023 024 [email or web address] 5 Not available 17:00:41 insertion of interbody biomechanic al device(s) to interverteb ral disc space, with interbody arthrodesis , each interspace (SURG) 2023 024 5 Not available 17:00:41 insertion of interbody biomechanic al device(s) to interverteb ral disc space, with interbody arthrodesis , each interspace (SURG) 2023 024 [email or web address] 5 Not available 17:00:42 instrumenta tion, anterior segmental, totaling 4 - 7 vertebral segments (SURG) 2023 024 [email or web address] 5 Not available 17:00:42 allograft, morselized (SURG) 2023 024 5 Not available 17:00:42 Imaging None recorded. Medication Orders None recorded. Patient TargetsNo targets recorded. Patient InstructionsNo instructions recorded. Reason for Referral None Reported. Results Created Date Observation Date Name Description Value Unit Range Abnormal Flag Note LastModifiedBy Organization Detail LastModifiedTime 06/09/2006/09/2024 BASIC METAB OLIC PROF Na 129 mmol/ L 136-14 5 low Not Available [facility] [address] [place], [address], 06/09/2024 16:22:49 06/09/20 24 06/09/2024 BASIC METAB OLIC PROF K 4.2 mmol/ L 3.5-5. 1 Not Available [facility] [address] [place], [address], 06/09/2024 16:22:49 06/09/2006/09/2024 BASIC METAB OLIC PROF cL 96 mmol/ L 98-107 low Not Available [facility] [address] [place], [address], 06/09/2024 16:22:49 06/09/20 24 06/09/2024 BASIC METAB OLIC PROF CO2 25 mmol/ L 21-32 Not Available [facility] [address] [place], [address], 06/09/2024 16:22:49 06/09/20 24 06/09/2024 BASIC METAB OLIC PROF glu 115 mg/dL 70-105 high Not Available [facility] [address] [place], [address], 06/09/2024 16:22:49 06/09/20 24 06/09/2024 BASIC METAB OLIC PROF BUN 24 mg/dL 7.0-18 .0 high Not Available [facility] [address] [place], [address], 06/09/2024 16:22:49 06/09/20 24 06/09/2024 BASIC METAB OLIC PROF creat 1.2 mg/dL 0.6-1. 3 Not Available [facility] [address] [place], [address], 06/09/2024 16:22:49 06/09/20 24 06/09/2024 BASIC METAB OLIC PROF anion gap 8 mmol/ L 5-15 Not Available [facility] [address] [place], [address], 06/09/2024 16:22:49 06/09/20 24 06/09/2024 BASIC METAB OLIC PROF osmocalc 281 mos/k g 275-29 5 Not Available [facility] [id number] [place], [address], 06/09/2024 16:22:49 06/09/20 24 06/09/2024 BASIC METAB OLIC PROF Ca 9.1 mg/dL 8.5-10 .1 Not Available [facility] [address] [place], [address], 06/09/2024 16:22:49 06/09/20 24 06/09/2024 BASIC METAB OLIC PROF estimated glomer filtr rate 60 mL/mi n/1.7 3_m2 Unit of Measu re for the Glome rular Filtr ation Rate (GFR) = mL/mi n/1.7 3 m2 GFR is calcu lated based on Ethni city of [facility] (Afri can Ameri can or Non-A frica n Ameri can) Age and Sex from the [facility] nt Justin trati on Infor matio n. REFER ENCE RANGE S: [place] ge GFR for Healt hy Adult s: >60 mL/mi n/1.7 3 m2 Chron ic Kidne y Disea se: 15 - 60 mL/mi n/1.7 3 m2 Kidne y Failu re: <15 mL/mi n/1.7 3 m2 REFER ENCE RANGE S ARE NOT AVAIL ABLE FOR PATIE NTS <18 OR >70 YEARS OF AGE AND WILL BE RESUL KAYLI WITH TNP (TEST NOT PERFO RMED) Not Available [facility] [address] [place], [address], 06/09/2024 16:22:49 06/09/20 24 06/09/2024 CBC WITHO UT DIFFE RENTI AL WBC 3.9 K/mm3 5.0-10 .0 low Not Available [facility] [address] [place], [address], 06/09/2024 16:25:11 06/09/20 24 06/09/2024 CBC WITHO UT DIFFE RENTI AL RBC 4.15 M/mm3 4.30-5 .90 low Not Available [facility] [address] [place], [address], 06/09/2024 16:25:11 06/09/20 24 06/09/2024 CBC WITHO UT DIFFE RENTI AL HGB 13.3 g/dL 12.6-1 5.0 Not Available [facility] [address] [place], [address], 06/09/2024 16:25:11 06/09/20 24 06/09/2024 CBC WITHO UT DIFFE RENTI AL HCT 38.0 % 42.0-5 4.0 low Not Available [facility] [address] [place], [address], 06/09/2024 16:25:11 06/09/20 24 06/09/2024 CBC WITHO UT DIFFE RENTI AL MCV 91.6 fL 82.0-9 8.0 Not Available [facility] [address] [place], [address], 06/09/2024 16:25:11 06/09/20 24 06/09/2024 CBC WITHO UT DIFFE RENTI AL MCH 32.1 pg 26.0-3 1.0 high Not Available [facility] [address] [place], [address], 06/09/2024 16:25:11 06/09/20 24 06/09/2024 CBC WITHO UT DIFFE RENTI AL MCHC 35.0 g/dL 32.0-3 6.0 Not Available [facility] [address] [place], [address], 06/09/2024 16:25:11 06/09/20 24 06/09/2024 CBC WITHO UT DIFFE RENTI AL RDW 13.2 % 11.5-1 5.5 Not Available [facility] [address] [place], [address], 06/09/2024 16:25:11 06/09/20 24 06/09/2024 CBC WITHO UT DIFFE RENTI AL plt 158 K/mm3 140-45 0 Not Available [facility] [address] [place], [address], 06/09/2024 16:25:11 06/09/20 24 06/09/2024 CBC WITHO UT DIFFDory KESSLER [place] MPV 7.4 fL 7.4-10 .4 Not Available [facility] [address] [place], [address], 06/09/2024 16:25:11 Result Notes None recorded. 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 2023 Marci Leo null, [facility] 4 14:09:20 Cholesterol level - finding 907882075 Active 2023 Marci Leo null, [facility] 4 14:09:20 Hypertensive disorder 74526794 Active 2023 Marci Leo null, [facility] 4 14:09:20 Heart disease 54713999 Active 2023 Marci Leo null, [facility] 4 14:09:20 Radiculopathy due to cervical spondylosis 6874856994 Active 2023 BELGICA RIVERA MD [address], [place], [address], [facility] 4 12:07:07 Cervical myelopathy 437192042 Active 2023 BELGICA RIVERA MD [address], [place], [address], [facility] 4 12:07:17 Myelomalacia 57525267 Active 2023 BELIGCA RIVERA MD [address], [place], [address], [facility] 12:07:26 Problem Notes Documentation Provider Name and Address Organization Details Recorded Time Preoperative Clearance* : [facility] [address] [place] [address]WHXPKDR, Ricky (id #[id number], : 1955) [facility] [address] [place] [address] Encounter Summary - Progress Note Date Printed: 06/25/2024 Documents sent via fax will include the followingmessage: This fax may contain sensitive and confidential personal health information that is being sent for the sole use of the intended recipient. Unintended recipients are directed to securely destroy any materials received. You are hereby notified that the unauthorized disclosure or other unlawful use of this fax or any personal health information is prohibited. To the extent patient information contained in this fax is subject to 42 CFR Part 2, this regulation prohibits unauthorized disclosure of these records. If you received this fax in error, please visit [email or web address] to notify the sender and confirm that the information will be destroyed. If you do not have internet access, please call to notify the sender and confirm that the information will be destroyed. Thank you for your attention and cooperation. [ID:[id number]] Patient Sagar Robertson (68yo, M) #[id number] 1955 Patient Demographics: Address [address] [place] [address] [address] [place] [address] Work Phone Encounter Notes: Encounter Reason/Date clearance for surgery 06/25/2024 - 07:00AM - [facility] History of Present [id number] male is brought to clinic by his brother Fabiano for evaluation of neck pain for planned surgical evaluation with surgery pending July 07, 2024 for anterior diskectomy with cervical fusion C4 through C7. Patient's brother states that he had to come to [place] from [place] as he received multiple phone calls from [...] visits no believe polypharmacy is a part. Review of Systems Patient reportsmuscle aches and back pain. He reportsdepression, anxiety, and sleep disturbances. He reports no fever, no chills, no night sweats, no significant weight gain, no significant weight loss, no exercise intolerance, and normal appetite. He reports no chest pain, no arm pain on exertion, no shortness of breath when walking, no shortness of breath when lying down, no palpitations, no known heart murmur, no lightheadedness, no calf or jaw pain, and no ankle edema. He reports no cough, no wheezing, no shortness of breath, no rapid breathing, no sputum production, and no coughing up blood. He reports no nausea, no vomiting, not vomiting blood, no abdominal pain, normal appetite, no diarrhea, no constipation, and no heartburn. Vitals Ht: 5 ft 11 in (180.34 cm)06/25/2024 07:03 am Wt: 202 lbs (91.63 kg)06/25/2024 07:09 am BMI: 28.210 07:09 am T: 97.9 F (36.61 C)06/25/2024 07:09 am BP: 160/105 sitting L arm06/25/2024 07:09 am Pulse: 71 bpm06/25/2024 07:09 am O2Sat: 98%06/25/2024 07:09 am Results/InterpretationsNone recorded Physical ExamConstitutional:General Appearance:overweight. Level of Distress: NAD. Ambulation: ambulating normally. Psychiatric:Mental Status: active and alert, normal affect, andanxious. Orientation: to time, place, and person;pt answers AO questions appropriately but has fixations on recent ER visit and neighbor as police force. Head:Head: normocephalic and atraumatic. Eyes:Lids and Conjunctivae: no discharge or pallor and non-injected. Sclerae: non-icteric. ENMT:Ears:hearing aides b/l. Oropharynx:voice is strained. Lungs:Respiratory effort: no dyspnea. Auscultation: no wheezing, rales/crackles, or rhonchi and breath sounds normal, good air movement, and CTA except as noted. Cardiovascular:Heart Auscultation: RRR and no murmurs. Neck vessels: no carotid bruits. Abdomen:Bowel Sounds: normal. Inspection and Palpation: no tenderness, guarding, masses, rebound tenderness, or CVA tenderness and soft and non-distended. Assessment and PlanGREATER THAN 65 MINUTES SPENT ON PATIENT ENCOUNTER WITH FACE TO FACE, CARE PLANNING AND COORDINATION OF CARE-er notes-neurosurg notes-neuro notesmed review 1. Neck pain-c/o neck painhas seen ER and neruosurg with plans for surgical intervention M54.2: Cervicalgia 2. Pre-surgery evaluation-planned anterior cervical diskectomy and fusion C4-5, c5-6 and c6-[address] rivera 07/07/24pt has pre-op visit dr rivera 07-02-24 and pt brother Fabiano is in town and will be going with him and has several questions regarding procedure and post-op RECOMMEND FOR LTAC FACILITY AT DISCHARGE DUE TO PATIENT LIVING ALONE AND IN ACUTE STRESS/GRIEF plan for 07-02-24 pre-op with neurosirg as scheudled and can re-eval from pcp standpointI have contacted Dr Rivera and left message to discuss patient [id number]: Encounter for other preprocedural examination 3. Acute stress disorder-pt brother state spt has called him marbin glover talking out of his mnd and is acting paranoid about the fact pt neighbor is real estate transaction manager Pt is having difficult time with of and having medical issues himself requiring neurosurg intevrentionHe has been to ER multiple times and had poor experience and is upset with servicesPt has hearing loss and wears hearing aides and has dysphonia and is difficult to understand due to voice strain and this adds frustration/complications to medical care Pt is AO x 4 today--self//todays day/year and location and dr braxton unable to complete PHQ9 and GAD7 as patient would not answer the direct question not at all, some days/most days//every day and instead had a story to tell with each repsonse and his brother kept cutting him off--pt denies thoughts of suicide, self harm or harm to others--pt brother says that weapons have been locked up and plan to give to neighbor who is in policie force He has multiple medication prescriptions from several doctors in different visits no believe polypharmacy is a part. start [facility] for in-pt admission if concerns qdwxjmyfS05.0: Acute stress reaction COUNSELING REFERRAL - Schedule Within: STAT Note to Provider: acute stress/depression/ptsd eval--pt unexpectedly and he has to have major surgery Urgency: stat Reason for Referral: acute stress/depression/ptsd eval--pt unexpectedly and he has to have major surgery 4. Medication review done by doctor-pt has been taking hydrocodone rx from who has (he states he only took 2 tabs)--this bottle is discarded into sharps container in clinicpt has fptatwvc15gr rx 1-2tabs po at ightprimidone 50mg--4 tabs po at nighthydirxyzine prn--d/c hydroxyzinebaclofen changed to 1 tab po nightly 60 minutes before bedand promidone changed to 3 tabs po 30minutes before bedZ76.89: Persons encountering health services in other specified circumstances Return to Office Patient will return to the office as needed Patient Medical History: Allergies List Reviewed Allergies NKDA Medications Reviewed Medications NameDate Source alfuzosin ER 10 mg tablet,extended release 24 hrTAKE 1 TABLET BY MOUTH DAILY05/27/24 filled surescripts amLODIPine 5 mg tabletTake 1 tablet(s) twice a day by oral route.05/27/24 filled surescripts atorvastatin 80 mg tabletTAKE 1 TABLET BY MOUTH DAILY05/27/24 filled surescripts baclofen 10 mg tabletTAKE 1-2 TABLET BY MOUTH EVERY NIGHT AT LACSRON23/26/24 filled surescripts clopidogreL 75 mg vhyfnm22/03/24 filled surescripts diazePAM 5 mg tabletTAKE 1-2 TABLETS BY MOUTH 30 MINUTES PRIOR TO MRI FOR ANXIETY. DO NOT DRIVE WITH THIS SWGFURIJMY08/21/24 filled surescripts doxazosin 4 mg tabletTAKE 1 TABLET BY MOUTH DAILY05/27/24 filled surescripts ezetimibe 10 mg tabletTAKE 1 TABLET BY MOUTH AT NDZPGYO00/03/24 filled surescripts FLUoxetine 40 mg capsuleTAKE 1 CAPSULE BY MOUTH EVERY DAY01/18/24 filled surescripts hydrOXYzine HCL 50 mg /30/24 filled surescripts losartan 25 mg tabletTAKE 1 TABLET DAILY EDCBWYEW37/27/24 filled surescripts meloxicam 15 mg tabletTake 1 tablet(s) every day by oral route. Internal Note:pt takes M-F004/25/23 entered Theresa Crowley Ma metoprolol tartrate 25 mg tabletTAKE 1 TABLET BY MOUTH TWICE DAILY05/27/24 filled surescripts nitroglycerin 0.4 mg sublingual tabletdissolve 1 tablet under the tongue every 5 minutes for up to 3 doses as needed for chest pain.call [id number] entered Theresa Crowley Ma pantoprazole 40 mg tablet,delayed releaseTAKE 1 TABLET BY MOUTH EVERY DAY05/27/24 filled surescripts prasugreL 10 mg tabletTAKE 1 TABLET BY MOUTH EVERY DAY11/22/23 filled surescripts primidone 50 mg hdayxy50/28/24 filled surescripts Repatha SureClick 140 mg/mL subcutaneous pen injectorADMINISTER 1 INJECTION UNDER THE SKIN EVERY 2 WEEKS05/05/24 filled surescripts tiZANidine 2 mg tabletTAKE 1 TABLET BY MOUTH AT NIGHT QSPENO35/16/24 filled surescripts Family HistoryReviewed Family History Mother - Hypertensive disorder - Malignant neoplastic disease Maternal Grandfather - Malignant neoplastic disease Maternal Grandmother - Malignant neoplastic disease Brother - Hypertensive disorder Past Medical HistoryReviewed Past Medical History HEARTBURN / REFLUX:Y HIGH CHOLESTEROL:Y HYPERTENSION:Y Vaccine HistoryReviewed Vaccines Vaccine Type Date Amt. Route Site [facility] Lot # Mfr. Exp. Date VIS VIS Given Medical Clerk Influenza influenza, injectable, quadrivalent 07/24/23 0.5 mL Intramuscular Arm, Right Upper [id number] [employer] Paste[employer] 03/23/24 Inactivated Influenza 04/29/2021 07/24/23 Janene Que, ACTIVITIES COUNSELOR influenza 07/21/22 influenza, high-dose, quadrivalent 07/11/22 Electronically Signed by: INGE BRAXTON, DO Gabriel Pimentel CMA null, [place] - [facility] 06/27/2024 15:42:35 Medical Equipment None Reported. Allergies No known [...] No t Available amlodipine 10 mg tablet Take 1 tablet every day by oral route. active Not Available Not Available No t Available pantoprazol e 40 mg tablet,germán yed [...] active Not Available Not Available Not Available metoprolol succinate ER 25 mg tablet,exte nded release 24 hr Take 1 tablet every day by oral route. active Not Available Not Available No t Available fluoxetine 20 mg capsule TAKE 1 [...] Not Available Not Available No t Available pantoprazol e active Not Available Not Available Not Available prasugrel HCl 10 mg tablet TAKE 1 TABLET BY MOUTH EVERY DAY active Not Available Not Available No t Available Repatha SureClick 140 mg/mL subcutaneou s pen injector ADMINISTE R 1 INJECTION UNDER THE SKIN EVERY 2 WEEKS active Not Available Not Available No t Available Repatha Pushtronex 420 mg/3.5 mL subcutaneou s wearable injector Inject 3.5 mL every 2 weeks by subcutane ous route. active Not Available Not Available No t Available ezetimibe 10 mg-rosuvast atin 20 mg tablet Take 1 tablet every day by oral route. active Not Available Not Available No t Available Vitals Date Recorded Body height Body mass index (BMI) Body weight Heart rate Systolic And Diastolic Provider Name and Address Organization Details Last Updated DateTime 06/03/2024 180.34 cm 29.4 kg/m2 27583.99 g 53 /min 135/84 mm[Hg] Jasmine Canales CMA [facility] [place] 06/03/2024 10:38:11 Date Recorded Body height Heart rate Body mass index (BMI) Body weight Systolic And Diastolic Provider Name and Address Organization Details Last Updated DateTime 06/20/2024 180.34 cm 71 /min 28.6 kg/m2 81351.44 g 162/92 mm[Hg] Marci eLo [facility] [place] 06/20/2024 14:08:34 Social History Question Answer Notes LastModified by Organizat ion Details LastModified Time What Was The Date Of Your Most Recent Tobacco Screening? 06/20/2024 Information not available 06/20/2024 Sex: Unknown Functional Status None recorded. Mental Status None recorded. Family History Relationship Description Onset Age of this Age Resolved Age Notes LastModified by Organization Details LastModified Time Father No current problems or disability [email or web address] Not available 05/26 14:09:39 Mother No current problems or disability [email or web address] Not available 05/26 14:09:39 Medical History No medical history recorded. Past Encounters Encounter ID Performer Location Encounter Start Date Encounter Closed Date Diagnosis/Indication Diagnosis SNOMED-CT Code Diagnosis ICD10 Code Diagnosis IMO Codes Diagnosis Note [id number] INGE BRAXTON DO [facility] [address] [place] [id number] 04/25/2023 15:23:00 04/27/2023 14:17:47 [id number] INGE BRAXTON DO [facility] [address] [place] [address] 06/26/2023 11:23:49 06/28/2023 10:14:57 [id number] INGE BRAXTON DO [facility] [address] [place] [id number] 07/16/2023 14:10:22 07/23/2023 15:17:14 [id number] INGE BRAXTON DO [facility] [address] [place] [id number] 07/24/2023 10:49:08 07/24/2023 13:55:03 [id number] MD [facility] [address] [place] [id number] 01/18/2024 15:13:28 01/22/2024 16:13:37 [id number] INGE BRAXTON DO [facility] [address] [place] [address] 04/03/2024 11:57:31 04/03/2024 16:21:49 [id number] MD [facility] [address] [facility] [address] [place] [address] 04/18/2024 14:53:07 04/18/2024 21:58:23 [id number] MD [facility]FFANIE [facility] [address] [facility] [address] [place] [address] 05/20/2024 14:45:52 05/20/2024 19:32:26 [id number] [facility] [address] [facility] [address] [place] [address] 06/03/2024 09:57:50 06/09/2024 12:34:15 Radiculopathy due to cervical spondylosis 7316120490 M47.22 Cervical myelopathy 2025 96560 G95.9 Myelomalacia 45730381 G9 5.89 C4-5, 5 6, C6-7 anterior cervical diskectomy and fusion [id number] [facility] [address] [facility] [address] [place] [address] 06/20/2024 12:58:52 06/25/2024 07:22:27 Radiculopathy due to cervical spondylosis 1896778993 M47.22 Spastic dysarthria 77773 4006 R47.02 Cervical myelopathy 2025 40960 G95.9 [id number] DO MATE[facility] - [address] [facility] [place] [address] 06/25/2024 08:02:26 06/25/2024 16:15:55 Health Concerns Section Related Observation LastModified by Organization Detai ls LastModified Time None Recorded Concern Status LastModified by Organization Details LastModified Time None Recorded Advance Directives Directive None Recorded Payers Insurance Date Sequence Insurance Name Policy Number Policy Ceron Covered Member ID Ceron Member ID Guarantor Name 04/09/2025 1 [employer] (MEDICARE REPLACEMENT/A DVANTAGE - HMO) Sagar Robertson [id number] Sagar Robertson Notes Date Note Type Note Provider Name and Address Organization Details Recorded Time 06/03/2024 text/html this the 1st Neuro Spine admission for 68-year-old gentleman with fine neck and DIS Shari. He has difficulty speaking. Patient states that approximately 2-3 months ago he began having muscle spasms and fasciculations in his lower extremities and upper extremities when lying down. The patient has a positive Lhermitte's phenomenon every time he looks up he gets a shock type sensation down his low back. The patient states the fasciculations numbness and tingling in her worse when lying down they are better when he is standing up. His activity has been somewhat limited by the pain which radiates into both arms left greater than right. Patient has been seen and treated by Neurology for several months with no significant relief of symptomatology. He denies any bowel or bladder symptomatology. Review of MRI scan from [facility] brought revealed C4-5 severe spinal stenosis with flattening of the cord. There is moderate spinal stenosis at C5-6 and there is bilateral foraminal stenosis at C6-7. BELGICA RIVERA MD [address], [place], [address], [facility] 06/03/2024 12:13:06 06/20/2024 text/html this the 1st Neuro Spine admission for 68-year-old gentleman with fine neck and DIS Shari. He has difficulty speaking. Patient states that approximately 2-3 months ago he began having muscle spasms and fasciculations in his lower extremities and upper extremities when lying down. The patient has a positive Lhermitte's phenomenon every time he looks up he gets a shock type sensation down his low back. The patient states the fasciculations numbness and tingling in her worse when lying down they are better when he is standing up. His activity has been somewhat limited by the pain which radiates into both arms left greater than right. Patient has been seen and treated by Neurology for several months with no significant relief of symptomatology. He denies any bowel or bladder symptomatology. Review of MRI scan from [facility] brought revealed C4-5 severe spinal stenosis with flattening of the cord. There is moderate spinal stenosis at C5-6 and there is bilateral foraminal stenosis at C6-7. BELGICA RIVERA MD [address] [place], [phone], CLAIR [facility] 06/24/2024 11:48:36
--- OUTSIDE RECORDS SUMMARY | 2025-08-19 10:42 | XMS_ITS | Clinical Summary ---
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 02/13/2025 Active atorvastatin (LIPITOR) 80 mg tablet Take 80 mg by mouth in the morning. 09/08/2024 Active clopidogreL (PLAVIX) tablet Take 75 mg by mouth in the morning. 09/08/2024 Active ARIPiprazole (ABILIFY) 15 mg tablet Take 7.5 mg by mouth in the morning. 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 Encounters Date Type Department Care Team Description 07/08/2025 11:40 AM EDT Procedure visit [facility] [address] [place] [address] Natalie Ayers MD Adductor spasmodic dysphonia (Primary [...] Care Team (Late st Contact Info) Description 11/18/2025 11:00 AM EST Procedure visit [facility] [address] [place] [address] Natalie Ayers MD [address] [facility] [place] [address] Health Maintenance Due Date Last Done Comments [...] of 2) 2006 COVID-19 Vaccine (1 - 2024-2 6 season) 2025 Influenza Vaccine (#1) 2025 HPV Vaccines Aged Out No longer eligi ble based on patient's age to complete this topic Hepatitis A Vaccines Aged Out No long er eligible based on patient's age to complete this topic Meningococcal Vaccine Aged Out No benito cely eligible based on patient's age to complete this topic Insurance MEDICARE [employer] PPO Care Teams 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
--- OUTSIDE RECORDS SUMMARY | 2025-08-19 10:42 | XMS_ITS | Clinical Summary ---
Author Organization [facility] Address [address] [place] [address] Phone Care Team Providers Care Manager Of Security Name Role Phone Katerin Chin MD Primary Care Provider [phone] Encounters Date Type Department Care Team Description 06/06/[address] [place] [address] [...] Health Screening 11/19/2024 COVID-19 Vaccine ( - 2024-2 6 season) 2025 Influenza Vaccine (#1) 2025 RSV [...] [employer] MEDICARE ADVANTAGE on file Care Teams Manager Of Security Relationship Specialty Start Date End Date Katerin Chin MD [address] [place] [address] PCP - General Internal Medicine 11/19/24
--- OUTSIDE RECORDS SUMMARY | 2025-08-19 10:43 | XMS_ITS | Data Portability ---
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 Plan of Treatment Reminders Order Date Submit Date Provider Last Modified By Organization Details Last Modified Time Details Appointments None recorded. Lab None recorded. Referral laryngology referral - spasmodic dysphonia, hoping if he is a candidate for botox to have at the same visit 2024 025 [email or web address] Tayler Linares MD, 1 [facility], [address] [place] [address], [place], [address], 5 12:42:50 Procedures None recorded. Surgeries None recorded. Imaging None recorded. Medication Orders None recorded. Patient TargetsNo targets recorded. Patient InstructionsNo instructions recorded. Reason for Referral Laryngology Referral for Dys phonia spasmodic dysphonia, hoping if he is a candidate for botox to have at the same visit Referring Physician: Concepcion Levy, Otolaryngology, Encounter Date: 11/03/2024 Problems Name Problem SNOMED Code Status Onset Date Resolution Date Notes Provider Name and Address Organization Details Recorded Time Dysphonia 82119178 Active 025 CONCEPCION LEVY MD [address] [facility],[place] [address], [facility] [place], [address] , [place] [facility] 5 15:16:05 Problem Notes None recorded. Procedures Surgical History Date Name Laterality Status Provider Name and Address Organization Details Recorded Time 11/03/19 25 Fiberoptic Laryngoscopy (Comprehensive) completed CONCEPCION LEVY MD [address] [place] [address], [phone], [place] [facility] 11/03/2024 15:17:45 Imaging Results None recorded. Procedure Notes None recorded. Medical Equipment None Reported. Allergies No known drug allergies Vitals Date Recorded Body height Body mass index (BMI) Body weight Provider Name and Address Organization Details Last Updated DateTime 11/03/2024 180.34 cm 26.5 kg/m2 19416.55 g Funmi Daniel [place] [facility] 11/03/2024 14:28:46 Social History None recorded. Functional Status None recorded. Mental Status None recorded. Family History Nothing Reported. Medical History Condition Response Allergies/Hayfever N Heart Problems N Anxiety Y Tonsil Infections N Emphysema N Migraines Y Thyroid Problems N Glaucoma N Depression N COPD N Developmental Delay N Nasal or Sinus Problems N Anemia N Immune System Disorder N Anesthesia Complications N Heart Attack (NC) N Other Skin Condition N Diabetes N Rhinitis N Bleeding Disorder N Food Allergy N Arthritis Y Hearing Loss N Hyperlipidemia N Cancer N Stroke N Dementia N Nasal polyps N Asthma N High Cholesterol N Sleep Disorder N GERD/Reflux N Liver Disease N Headaches Y Fibromyalgia N Hypertension Y Speech Delay N Kidney Disease N Past Encounters Encounter ID Performer Location Encounter Start Date Encounter Closed Date Diagnosis/Indication Diagnosis SNOMED-CT Code Diagnosis ICD10 Code Diagnosis IMO Codes Diagnosis Note [id number] CONCEPCION LEVY MD [facility] [address] [address] 11/03/2024 14:17:56 11/03/2024 15:21:11 Dysphonia 22024237 R49.9 69 yo M with dysphonia and exam today showing severe supraglott ic compressio n. 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 I do think he would benefit from voice therapy as well but he would like to defer for now. Health Concerns Section Related Observation LastModified by Organization Detai ls LastModified Time None Recorded Concern Status LastModified by Organization Details LastModified Time None Recorded Advance Directives Directive None Recorded Payers Insurance Date Sequence Insurance Name Policy Number Policy Ceron Covered Member ID Ceron Member ID Guarantor Name 01/15/2025 1 [employer] (MEDICARE REPLACEMENT/A DVANTAGE - HMO) Sagar Romero [id number] Sagar Romero Notes Date Note Type Note Provider Name and Address Organization Details Recorded Time 11/03/2024 text/html ROS as noted in the HPI 69 yo M presents for dysphonia. Saw Dr. Horta in [place] who diagnosed him with spasmodic dysphonia and recommended botox injections but he has since moved here. No inciting factor for voice, has been symptomatic for several monthsneeds surgery for spinal stenosis Dysphagia occasionally Some discomfort No ear pain CONCEPCION LEVY MD [address] [place] [address], [phone], [place] [facility] 11/10/2024 08:45:45
--- OUTSIDE RECORDS SUMMARY | 2025-08-19 10:43 | XMS_ITS | Patient Health Record ---
Author Organization [employer] Address [address] [place] [address] Care Team Providers Care Surveillance Systems Analyst Name Role Phone NANI SOUTH Primary Care Provider Elaine Montiel Unavailable [phone] Allergies No Known Allergies Results Component Value Reference Range Notes Hemoglobin [id number] Reviewed date:08/06/2025 11:49:28 AM Interpretation: Performing Lab:[facility] [place], [address] [facility], Phone - [phone], Director - Cortez Notes/Report: Hemoglobin A1c 5.5 4.8-5.6 % . Prediabetes: 5.7 - 6.4 Diabetes: >6.4 Glycemic control for adults with diabetes: <7.0 Glucose-[id number] Reviewed date:08/06/2025 11:49:17 AM Interpretation: Performing Lab:[facility] [place], [address] [facility] [employer], [place], Phone - [phone], Director - Cortez Notes/Report: Glucose 104 70-99 mg/dL PSA (Serial Monitor)-[id number] Reviewed date:07/23/2025 07:51:54 PM Interpretation: Performing Lab:[facility] [place], [address] [facility], Phone - [phone], Director - Cortez Notes/Report: Prostate Specific Ag 0.4 0.0-4.0 ng/mL Macie ECLIA methodology. . According to the [place] [employer], Serum PSA should decrease and remain at undetectable levels after radical prostatectomy. The AUA defines biochemical recurrence as an initial PSA value 0.2 ng/mL or greater followed by a subsequent confirmatory PSA value 0.2 ng/mL or greater. Values obtained with different assay methods or kits cannot be used interchangeably. Results cannot be interpreted as absolute evidence of the presence or absence of malignant disease. Albumin/Creatinine Ratio,Uri ne-[id number] Reviewed date:07/23/2025 07:52:04 PM Interpretation: Performing Lab:[facility] [place], [address] [facility], Phone - [phone], Director - MDJodry Notes/Report: Creatinine, Urine 238.7 Not Estab. mg/dL Albumin, Urine 33.8 Not Estab. ug/mL Alb/Creat Ratio 14 0-29 mg/g creat Normal: 0 - 29 Moderately increased: 30 - 300 Severely increased: >300 Lipid Panel-[id number] Reviewed date:07/23/2025 07:52:21 PM Interpretation: Performing Lab:[facility] [place], [address] [facility], [place], Phone - [phone], Director - MDJoy Notes/Report: Cholesterol, Total 85 100-199 mg/dL Triglycerides 160 0-149 mg/dL HDL Cholesterol 41 >39 mg/dL VLDL Cholesterol Stevan 26 5-40 mg/dL LDL Chol Calc (NIH) 18 0-99 mg/dL Comp. Metabolic Panel (14)-3 Reviewed date:07/23/2025 07:52:32 PM Interpretation: Performing Lab:[facility] [place], [address] [facility], [place], Phone - [phone], Director - MDAkbary Notes/Report: Glucose 149 70-99 mg/dL BUN 21 8-27 mg/dL Creatinine 1.11 0.76-1.27 mg/dL eGFR 72 >59 mL/min/1.73 BUN/Creatinine Ratio 19 10-24 Sodium 134 134-144 mmol/L Potassium 4.3 3.5-5.2 mmol/L Chloride 100 96-106 mmol/L Carbon Dioxide, Total 19 20-29 mmol/L Calcium 9.1 8.6-10.2 mg/dL Protein, Total 6.6 6.0-8.5 g/dL Albumin 4.4 3.9-4.9 g/dL Globulin, Total 2.2 1.5-4.5 g/dL Bilirubin, Total 0.6 0.0-1.2 mg/dL Alkaline Phosphatase 117 47-123 IU/L AST (SGOT) 19 0-40 IU/L ALT (SGPT) 20 0-44 IU/L Reason For Referral Reason coronary artery dise ase please evaluate and treat Diagnosis 1 Atherosclerotic hear t disease of [place] coronary artery without angina pectoris (I25.10) Referral Organization [facility] Referring Provider First Name CARDOZA Referring Provider Last Name [facility] Referred Provider Specialty Cardiology General Notes Referral was faxed t o [facility] Cardiology. Please contact patient for scheduling.Nelson Rashida 10/16/2024 02:36:44 PM > Referral Priority Routine Reason spastic dysphonia an d significant hoarseness please evaluate and treat Diagnosis 1 Dysphonia (R49.0) Referral Organization [facility] Referring Provider First Name CARDOZA Referring Provider Last Name [facility] Referring Provider Speciality [facility] Referred Provider Specialty Otolaryngolo gy General Notes referral was faxed t o Ear ,Nose, Throat office. Please contact patient for scheduling.Nelson Rashida 10/16/2024 02:10:52 PM > Referral Priority Urgent Reason cervical spine steno sis and gait instability please evaluate and treat Diagnosis 1 Cervical stenosis of spine (M48.02) Diagnosis 2 Gait instability (R2 6.81) Referral Organization [facility] Referring Provider First Name CARDOZA Referring Provider Last Name [facility] Referred Provider Specialty Neurosurgery General Notes Referral was faxed t o [facility]. Please contact patient for scheduling.Nelson Rashida 10/16/2024 02:02:26 PM > Referral Priority Urgent Reason BPH and history of u rinary retention please evaluate and treat Diagnosis 1 BPH without urinary obstruction (N40.0) Diagnosis 2 Retention of urine, unspecified (R33.9) Referral Organization [facility] Referring Provider First Name CARDOZA Referring Provider Last Name [facility] Ref[facility] Referred Provider Specialty Urology General Notes referral was faxed [facility] urology. Please contact patient for scheduling.Nelson Rashida 10/16/2024 01:56:26 PM > Referral Priority Routine Medications Medication SIG (Take, Route, Frequency, Duration) Notes Start Date End Date Status Nitroglycerin 0.4 MG 1 tablet under the tongue and allow to dissolve as needed. Take every 5 minutes up to 3 times if chest pain persists Sublingual Three times a day Active FLUoxetine HCl 40 MG 1 capsule Orally On ce a day Active Fluoxetine Not-Takin g hydrOXYzine HCl 50 MG 1 tablet as needed Orally Once a day Active Metoprolol Succinate 25 MG 1 capsule Orally Once a day; Duration: 90 days Active ARIPiprazole 5 MG 1 tablet Orally Once a day Active Pantoprazole Sodium 40 MG 1 tablet 1/2 t o 1 hour before morning meal Orally Once a day; Duration: 90 days Active Alfuzosin HCl ER 10 MG 1 tablet immediat richi after the same meal Orally Once a day Active Losartan Potassium 25 MG 1 tablet Orally Once a day Active amLODIPine Besylate 5 MG 1 tablet Orally Once a day Active Ezetimibe 10 MG 1 tablet Orally Once a day Active Melatonin 3 MG 1 tablet at bedtime as needed Orally Once a day Active Repatha SureClick 140 MG/ML INJECT 1 PEN UNDER THE SKIN EVERY 2 WEEKS DIRECTED; Duration: 28 Active Acetaminophen 325 MG 1 tablet as needed Orally every 6 hrs Active Clopidogrel Bisulfate 75 MG 1 tablet Orally Once a day Active Atorvastatin Calcium 80 MG 1 tablet Orally Once a day Active Immunizations Vaccine Route Administration Date Status Comme nts Fluzone High-Dose IM Intramuscular 07/30/2025 Administered RSV IM Intramuscular 07/30/2025 Administered Problems Problem Type SNOMED Code ICD Code Onset Dates Problem Status W/U Status Risk Notes Problem Mixed hyperlipidemia (615733832) Mixed hyperlipidemia (E78.2) Active confirmed Problem Hearing loss (49233757) Unspecified hearing loss, unspecified ear (H91.90) Active confirmed Problem Atherosclerotic heart disease of [place] coronary artery without angina pectoris (484349989009363) Atherosclerotic heart disease of [place] coronary artery without angina pectoris (I25.10) Active confirmed Problem Angina co-occurrent and due to arteriosclerosis of coronary artery bypass graft (39503857553501354) Atherosclerosis of autologous artery coronary artery bypass graft(s) with unspecified angina pectoris (I25.729) Active confirmed Problem Coronary arteriosclerosis of coronary artery bypass graft (361064507) Atherosclerosis of coronary artery bypass graft(s) without angina pectoris (I25.810) Active confirmed Problem Abnormal gait (58106142) Other abnormalities of gait and mobility (R26.89) Active confirmed Problem Essential hypertension (06252441) Essential (primary) hypertension (I10) Active confirmed Problem Lower urinary tract symptoms due to benign prostatic hypertrophy (68877265207513) Benign prostatic hyperplasia with lower urinary tract symptoms (N40.1) Active confirmed Problem Spinal stenosis in cervical region (22383753) Cervical stenosis of spine (M48.02) Active confirmed Vital Signs Heart Rate 64 /min 07/30/2025 Temperature 98.1 degrees Fahrenheit 07/30/2025 Oximetry 98 % 07/30/2025 Blood pressure diastolic 80 mm Hg 07/30/2025 Height 5'1'' in 07/30/2025 Blood pressure systolic 128 mm Hg 07/30/2025 Weight 207.1 lbs 07/30/2025 BMI 39.13 kg/m2 07/30/2025 Encounters Encounter Location Date Provider Diagnosis [facility] [address] [place] [address] 10/16/2024 NANI SOUTH Essential (primary) hypertension I10 ; Mixed hyperlipidemia E78.2 ; Atherosclerosis of autologous artery coronary artery bypass graft(s) with unspecified angina pectoris I25.729 ; Atherosclerosis of coronary artery bypass graft(s) without angina pectoris I25.810 ; Benign prostatic hyperplasia with lower urinary tract symptoms N40.1 and Dysphonia R49.0 [facility] [address] [place] [address] 01/29/2025 NANI SOUTH Mixed hyperlipidemia E78.2 ; [...] Other abnormalities of gait and mobility R26.89 [facility] [address] [place] [address] 07/30/2025 Elaine Montiel Essential (primary) hypertension I10 ; Annual visit for general adult medical examination without abnormal findings Z00.00 ; Mixed hyperlipidemia E78.2 ; Atherosclerosis of autologous artery coronary artery bypass graft(s) with unspecified angina pectoris I25.729 ; Atherosclerosis of coronary artery bypass graft(s) without angina pectoris I25.810 ; Benign prostatic hyperplasia with lower urinary tract symptoms N40.1 ; Dysphonia R49.0 ; Unspecified hearing loss, unspecified ear H91.90 ; Other abnormalities of gait and mobility R26.89 ; Impaired fasting blood sugar R73.01 ; Encounter for screening for malignant neoplasm of colon Z12.11 and Encounter for immunization Z23 [address] [place] [address] 10/16/[address] [place] [address] 11/10/[address] [place] [address] 11/24/[address] [place] [address] 12/16/[address] [place] [address] 01/29/[address] [place] [address] 05/29/2025 Ghadeer Mazloum GERD without esophagitis K21.[address] [place] [address] 06/19/[address] [place] [address] 07/29/[address] [place] [address] 07/30/2025 Ghadeer Mazloum Encounter for screen ing for malignant neoplasm of colon Z12.11 Assessments Encounter Date Diagnosis (ICD Code) Assessment [...] his . He was recently admitted at [facility] for anxiety and depression. Plan is [...] current regimen. Lab work ordered. 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 Hypertension/hyp erlipidemia. Blood pressure well controlled and continue current medication and lab work ordered Cervical radiculopathy. Referral to neurosurgery because he has gait instability and he was in a rehab in [place]. He was supposed to have cervical spine surgery for cervical stenosis but unfortunately his and surgery was postponed. We will get records from [place]. 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 Acid reflux. Continue on Protonix 40 mg daily and dietary restrictions discussed Generalized anxiety disorder/depress ion/insomnia. Recent admission at [facility] [place]. He is stable on current regimen. He has a follow-up appointment with [facility] in the next few [...] his . He was recently admitted at [facility] for anxiety and depression. Plan is [...] current regimen. Lab work ordered. 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 Hypertension/hyp erlipidemia. Blood pressure well controlled and continue current medication and lab work ordered Cervical radiculopathy. Referral to neurosurgery because he has gait instability and he was in a rehab in [place]. He was supposed to have cervical spine surgery for cervical stenosis but unfortunately his and surgery was postponed. We will get records from [place]. 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 Acid reflux. Continue on Protonix 40 mg daily and dietary restrictions discussed Generalized anxiety disorder/depress ion/insomnia. Recent admission at [facility] [place]. He is stable on current regimen. He has a follow-up appointment with [facility] in the next few days. BPH [...] his . He was recently admitted at [facility] for anxiety and depression. Plan is [...] current regimen plan he follows up with welding teacher Hypertension/hyp erlipidemia. Blood pressure well controlled and continue current medication and lab work ordered Cervical radiculopathy. Referral to neurosurgery because he has gait instability and he was in a rehab in [place]. He was supposed to have cervical spine surgery for cervical stenosis but unfortunately his and surgery was postponed. We will get records from [place]. His insurance changed and he is waiting to see neurosurgery. 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 Acid reflux. Continue on Protonix 40 mg daily and dietary restrictions discussed Generalized anxiety disorder/depress ion/insomnia. Recent admission at [facility] [place]. He is stable on current regimen. He see therapist at [facility]. BPH with lower urinary tract symptoms. He is stable on current regimen and waiting to see urologist. Hearing loss. He uses hearing aids. Screening blood work ordered but he is going to have physical at [facility] 01/29/2025 Essential (primary) hypertension (ICD-10 - I10) Noel age [age] years old gentleman with CABG time 4, coronary artery disease and status post stent placement, AAA repair, hypertension, hyperlipidemia, generalized anxiety disorder/depress ion/insomnia, cervical radiculopathy, spastic dysphonia, essential tremors is here today for follow-up He is currently living with his mother after his . He was recently admitted at [facility] for anxiety and depression. Plan is [...] current regimen plan he follows up with welding teacher Hypertension/hyp erlipidemia. Blood pressure well controlled and continue current medication and lab work ordered Cervical radiculopathy. Referral to neurosurgery because he has gait instability and he was in a rehab in [place]. He was supposed to have cervical spine surgery for cervical stenosis but unfortunately his and surgery was postponed. We will get records from [place]. His insurance changed and he is waiting to see neurosurgery. 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 Acid reflux. Continue on Protonix 40 mg daily and dietary restrictions discussed Generalized anxiety disorder/depress ion/insomnia. Recent admission at [facility] [place]. He is stable on current regimen. He see therapist at [facility]. BPH with lower urinary tract symptoms. He is stable on current regimen and waiting to see urologist. Hearing loss. He uses hearing aids. Screening blood work ordered but he is going to have physical at [facility] 07/30/2025 Essential (primary) hypertension (ICD-10 - I10) Noel age [age] years old gentleman with CABG time 4, coronary artery disease and status post stent placement, AAA repair, hypertension, hyperlipidemia, generalized anxiety disorder/depress ion/insomnia, cervical radiculopathy, spastic dysphonia, essential tremors is here today For Medicare wellness visit. Plan is as follows CABG time 4/ coronary artery disease. - Stable at this point. He denies any exertional chest pain pressure or shortness of breath.He follows with [facility] cardiology, recommended to continue on statins, losartan, Dual therapy of aspirin and Plavix and he is also on PCSK-9. He is also on nitroglycerin 0.4 mg when necessary. AAA repair. He was referred by the welding teacher to be monitored by Vascular surgeon. Hypertension/hyp erlipidemia. - Blood pressure well controlled and continue current medication. I will recheck lipid panel, states it was nonfasting but does admit that his triglyceride has improved significantly as it used to be in the thousands. Cervical radiculopathy. -He does follow with a neurosurgeon, he recently had an MRI and has a follow-up on the results. We do not have records but will obtain a further review Spastic dysphonia. -He recently had a Botox injection with a significant improvement. He is to follow every 4 months with a specialist. Acid reflux. - Stable. Continue on Protonix 40 mg daily and dietary restrictions discussed Generalized anxiety disorder/depress ion/insomnia. - He is stable on current regimen. He see therapist And psychiatrist at [facility]. BPH with lower urinary tract symptoms. - He is stable on current regimen, He follows with urologist. [facility]. He is up-to-date Hearing loss. He uses hearing aids. Gait instability, he prefers to defer physical therapy until he sees his neurosurgeon for evaluation Screening for colon cancer, we will place an order for cologuard He is up-to-date on age-specific screenings, flu and RSV are given in office today Healthcare proxy and end-of-life care discussed, he will fill out the forms Recent blood work discussed with the patient General concerns have been discussed I have rendered the services for this patient under direct supervision of Dr. South, who did not see the patient but was available upon request Content of this note has been dictated using voice recognition software. Despite multiple revisions, Errors may persist 07/30/2025 Annual visit for general adult medical examination without abnormal findings (ICD-10 - Z00.00) Noel age [age] years old gentleman with CABG time 4, coronary artery disease and status post stent placement, AAA repair, hypertension, hyperlipidemia, generalized anxiety disorder/depress ion/insomnia, cervical radiculopathy, spastic dysphonia, essential tremors is here today For Medicare wellness visit. Plan is as follows CABG time 4/ coronary artery disease. - Stable at this point. He denies any exertional chest pain pressure or shortness of breath.He follows with [facility] cardiology, recommended to continue on statins, losartan, Dual therapy of aspirin and Plavix and he is also on PCSK-9. He is also on nitroglycerin 0.4 mg when necessary. AAA repair. He was referred by the welding teacher to be monitored by Vascular surgeon. Hypertension/hyp erlipidemia. - Blood pressure well controlled and continue current medication. I will recheck lipid panel, states it was nonfasting but does admit that his triglyceride has improved significantly as it used to be in the thousands. Cervical radiculopathy. -He does follow with a neurosurgeon, he recently had an MRI and has a follow-up on the results. We do not have records but will obtain a further review Spastic dysphonia. -He recently had a Botox injection with a significant improvement. He is to follow every 4 months with a specialist. Acid reflux. - Stable. Continue on Protonix 40 mg daily and dietary restrictions discussed Generalized anxiety disorder/depress ion/insomnia. - He is stable on current regimen. He see therapist And psychiatrist at [facility]. BPH with lower urinary tract symptoms. - He is stable on current regimen, He follows with urologist. [facility]. He is up-to-date Hearing loss. He uses hearing aids. Gait instability, he prefers to defer physical therapy until he sees his neurosurgeon for evaluation Screening for colon cancer, we will place an order for cologuard He is up-to-date on age-specific screenings, flu and RSV are given in office today Healthcare proxy and end-of-life care discussed, he will fill out the forms Recent blood work discussed with the patient General concerns have been discussed I have rendered the services for this patient under direct supervision of Dr. South, who did not see the patient but was available upon request Content of this note has been dictated using voice recognition software. Despite multiple revisions, Errors may persist 07/30/2025 Encounter for screening for malignant neoplasm of colon (ICD-10 - Z12.11) 01/29/2025 Atherosclerosis of autologous artery coronary artery [...] his . He was recently admitted at [facility] for anxiety and depression. Plan is [...] current regimen plan he follows up with welding teacher Hypertension/hyp erlipidemia. Blood pressure well controlled and continue current medication and lab work ordered Cervical radiculopathy. Referral to neurosurgery because he has gait instability and he was in a rehab in [place]. He was supposed to have cervical spine surgery for cervical stenosis but unfortunately his and surgery was postponed. We will get records from [place]. His insurance changed and he is waiting to see neurosurgery. 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 Acid reflux. Continue on Protonix 40 mg daily and dietary restrictions discussed Generalized anxiety disorder/depress ion/insomnia. [facility] [place]. He is stable on current regimen. [facility] BPH with lower urinary tract symptoms. He is stable on current regimen and waiting to see urologist. Hearing loss. He uses hearing aids. Screening blood work ordered but he is going to have physical at [facility] 05/29/2025 GERD without esophagitis (ICD-10 - K21.9) 07/30/2025 Mixed hyperlipidemia (ICD-10 - E78.2) Noel age [age] years old gentleman with CABG time 4, coronary artery disease and status post stent placement, AAA repair, hypertension, hyperlipidemia, generalized anxiety disorder/depress ion/insomnia, cervical radiculopathy, spastic dysphonia, essential tremors is here today For Medicare wellness visit. Plan is as follows CABG time 4/ coronary artery disease. - Stable at this point. He denies any exertional chest pain pressure or shortness of breath.He follows with [facility] cardiology, recommended to continue on statins, losartan, Dual therapy of aspirin and Plavix and he is also on PCSK-9. He is also on nitroglycerin 0.4 mg when necessary. AAA repair. He was referred by the welding teacher to be monitored by Vascular surgeon. Hypertension/hyp erlipidemia. - Blood pressure well controlled and continue current medication. I will recheck lipid panel, states it was nonfasting but does admit that his triglyceride has improved significantly as it used to be in the thousands. Cervical radiculopathy. -He does follow with a neurosurgeon, he recently had an MRI and has a follow-up on the results. We do not have records but will obtain a further review Spastic dysphonia. -He recently had a Botox injection with a significant improvement. He is to follow every 4 months with a specialist. Acid reflux. - Stable. Continue on Protonix 40 mg daily and dietary restrictions discussed Generalized anxiety disorder/depress ion/insomnia. - He is stable on current regimen. He see therapist And psychiatrist at [facility]. BPH with lower urinary tract symptoms. - He is stable on current regimen, He follows with urologist. [facility]. He is up-to-date Hearing loss. He uses hearing aids. Gait instability, he prefers to defer physical therapy until he sees his neurosurgeon for evaluation Screening for colon cancer, we will place an order for cologuard He is up-to-date on age-specific screenings, flu and RSV are given in office today Healthcare proxy and end-of-life care discussed, he will fill out the forms Recent blood work discussed with the patient General concerns have been discussed I have rendered the services for this patient under direct supervision of Dr. South, who did not see the patient but was available upon request Content of this note has been dictated using voice recognition software. Despite multiple revisions, Errors may persist 10/16/2024 Atherosclerosis of autologous artery coronary artery [...] his . He was recently admitted at [facility] for anxiety and depression. Plan is [...] current regimen. Lab work ordered. 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 Hypertension/hyp erlipidemia. Blood pressure well controlled and continue current medication and lab work ordered Cervical radiculopathy. Referral to neurosurgery because he has gait instability and he was in a rehab in [place]. He was supposed to have cervical spine surgery for cervical stenosis but unfortunately his and surgery was postponed. We will get records from [place]. 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 Acid reflux. Continue on Protonix 40 mg daily and dietary restrictions discussed Generalized anxiety disorder/depress ion/insomnia. Recent admission at [facility] [place]. He is stable on current regimen. He [...] his . He was recently admitted at [facility] for anxiety and depression. Plan is [...] current regimen. Lab work ordered. 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 Hypertension/hyp erlipidemia. Blood pressure well controlled and continue current medication and lab work ordered Cervical radiculopathy. Referral to neurosurgery because he has gait instability and he was in a rehab in [place]. He was supposed to have cervical spine surgery for cervical stenosis but unfortunately his and surgery was postponed. We will get records from [place]. 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 Acid reflux. Continue on Protonix 40 mg daily and dietary restrictions discussed Generalized anxiety disorder/depress ion/insomnia. Recent admission at [facility] [place]. He is stable on current regimen. He has a follow-up appointment with [facility] in the next few days. BPH with lower urinary tract symptoms. He is stable on current regimen and referral to urologist. Screening blood work ordered. 07/30/2025 Atherosclerosis of autologous artery coronary artery bypass graft(s) with unspecified angina pectoris (ICD-10 - I25.729) Noel age [age] years old gentleman with CABG time 4, coronary artery disease and status post stent placement, AAA repair, hypertension, hyperlipidemia, generalized anxiety disorder/depress ion/insomnia, cervical radiculopathy, spastic dysphonia, essential tremors is here today For Medicare wellness visit. Plan is as follows CABG time 4/ coronary artery disease. - Stable at this point. He denies any exertional chest pain pressure or shortness of breath.He follows with [facility] cardiology, recommended to continue on statins, losartan, Dual therapy of aspirin and Plavix and he is also on PCSK-9. He is also on nitroglycerin 0.4 mg when necessary. AAA repair. He was referred by the welding teacher to be monitored by Vascular surgeon. Hypertension/hyp erlipidemia. - Blood pressure well controlled and continue current medication. I will recheck lipid panel, states it was nonfasting but does admit that his triglyceride has improved significantly as it used to be in the thousands. Cervical radiculopathy. -He does follow with a neurosurgeon, he recently had an MRI and has a follow-up on the results. We do not have records but will obtain a further review Spastic dysphonia. -He recently had a Botox injection with a significant improvement. He is to follow every 4 months with a specialist. Acid reflux. - Stable. Continue on Protonix 40 mg daily and dietary restrictions discussed Generalized anxiety disorder/depress ion/insomnia. - He is stable on current regimen. He see therapist And psychiatrist at [facility]. BPH with lower urinary tract symptoms. - He is stable on current regimen, He follows with urologist. [facility]. He is up-to-date Hearing loss. He uses hearing aids. Gait instability, he prefers to defer physical therapy until he sees his neurosurgeon for evaluation Screening for colon cancer, we will place an order for cologuard He is up-to-date on age-specific screenings, flu and RSV are given in office today Healthcare proxy and end-of-life care discussed, he will fill out the forms Recent blood work discussed with the patient General concerns have been discussed I have rendered the services for this patient under direct supervision of Dr. South, who did not see the patient but was available upon request Content of this note has been dictated using voice recognition software. Despite multiple revisions, Errors may persist 01/29/2025 Atherosclerosis of coronary artery bypass graft(s) [...] his . He was recently admitted at [facility] for anxiety and depression. Plan is [...] current regimen plan he follows up with welding teacher Hypertension/hyp erlipidemia. Blood pressure well controlled and continue current medication and lab work ordered Cervical radiculopathy. Referral to neurosurgery because he has gait instability and he was in a rehab in [place]. He was supposed to have cervical spine surgery for cervical stenosis but unfortunately his and surgery was postponed. We will get records from [place]. His insurance changed and he is waiting to see neurosurgery. 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 Acid reflux. Continue on Protonix 40 mg daily and dietary restrictions discussed Generalized anxiety disorder/depress ion/insomnia. Recent admission at [facility] [place]. He is stable on current regimen. He see therapist at [facility]. BPH with lower urinary tract symptoms. He is stable on current regimen and waiting to see urologist. Hearing loss. He uses hearing aids. Screening blood work ordered but he is going to have physical at [facility] 01/29/2025 Benign prostatic hyperplasia with lower urinary [...] his . He was recently admitted at [facility] for anxiety and depression. Plan is [...] current regimen plan he follows up with welding teacher Hypertension/hyp erlipidemia. Blood pressure well controlled and continue current medication and lab work ordered Cervical radiculopathy. Referral to neurosurgery because he has gait instability and he was in a rehab in [place]. He was supposed to have cervical spine surgery for cervical stenosis but unfortunately his and surgery was postponed. We will get records from [place]. His insurance changed and he is waiting to see neurosurgery. 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 Acid reflux. Continue on Protonix 40 mg daily and dietary restrictions discussed Generalized anxiety disorder/depress ion/insomnia. Recent admission at [facility] [place]. He is stable on current regimen. He see therapist at [facility]. BPH with lower urinary tract symptoms. He is stable on current regimen and waiting to see urologist. Hearing loss. He uses hearing aids. Screening blood work ordered but he is going to have physical at [facility] 07/30/2025 Atherosclerosis of coronary artery bypass graft(s) without angina pectoris (ICD-10 - I25.810) Noel age [age] years old gentleman with CABG time 4, coronary artery disease and status post stent placement, AAA repair, hypertension, hyperlipidemia, generalized anxiety disorder/depress ion/insomnia, cervical radiculopathy, spastic dysphonia, essential tremors is here today For Medicare wellness visit. Plan is as follows CABG time 4/ coronary artery disease. - Stable at this point. He denies any exertional chest pain pressure or shortness of breath.He follows with [facility] cardiology, recommended to continue on statins, losartan, Dual therapy of aspirin and Plavix and he is also on PCSK-9. He is also on nitroglycerin 0.4 mg when necessary. AAA repair. He was referred by the welding teacher to be monitored by Vascular surgeon. Hypertension/hyp erlipidemia. - Blood pressure well controlled and continue current medication. I will recheck lipid panel, states it was nonfasting but does admit that his triglyceride has improved significantly as it used to be in the thousands. Cervical radiculopathy. -He does follow with a neurosurgeon, he recently had an MRI and has a follow-up on the results. We do not have records but will obtain a further review Spastic dysphonia. -He recently had a Botox injection with a significant improvement. He is to follow every 4 months with a specialist. Acid reflux. - Stable. Continue on Protonix 40 mg daily and dietary restrictions discussed Generalized anxiety disorder/depress ion/insomnia. - He is stable on current regimen. He see therapist And psychiatrist at [facility]. BPH with lower urinary tract symptoms. - He is stable on current regimen, He follows with urologist. [facility]. He is up-to-date Hearing loss. He uses hearing aids. Gait instability, he prefers to defer physical therapy until he sees his neurosurgeon for evaluation Screening for colon cancer, we will place an order for cologuard He is up-to-date on age-specific screenings, flu and RSV are given in office today Healthcare proxy and end-of-life care discussed, he will fill out the forms Recent blood work discussed with the patient General concerns have been discussed I have rendered the services for this patient under direct supervision of Dr. South, who did not see the patient but was available upon request Content of this note has been dictated using voice recognition software. Despite multiple revisions, Errors may persist 10/16/2024 Benign prostatic hyperplasia with lower urinary [...] his . He was recently admitted at [facility] for anxiety and depression. Plan is [...] current regimen. Lab work ordered. 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 Hypertension/hyp erlipidemia. Blood pressure well controlled and continue current medication and lab work ordered Cervical radiculopathy. Referral to neurosurgery because he has gait instability and he was in a rehab in [place]. He was supposed to have cervical spine surgery for cervical stenosis but unfortunately his and surgery was postponed. We will get records from [place]. 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 Acid reflux. Continue on Protonix 40 mg daily and dietary restrictions discussed Generalized anxiety disorder/depress ion/insomnia. Recent admission at [facility] [place]. He is stable on current regimen. He [...] his . He was recently admitted at [facility] for anxiety and depression. Plan is [...] current regimen. Lab work ordered. 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 Hypertension/hyp erlipidemia. Blood pressure well controlled and continue current medication and lab work ordered Cervical radiculopathy. Referral to neurosurgery because he has gait instability and he was in a rehab in [place]. He was supposed to have cervical spine surgery for cervical stenosis but unfortunately his and surgery was postponed. We will get records from [place]. 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 Acid reflux. Continue on Protonix 40 mg daily and dietary restrictions discussed Generalized anxiety disorder/depress ion/insomnia. Recent admission at [facility] [place]. He is stable on current regimen. He [...] his . He was recently admitted at [facility] for anxiety and depression. Plan is [...] current regimen plan he follows up with welding teacher Hypertension/hyp erlipidemia. Blood pressure well controlled and continue current medication and lab work ordered Cervical radiculopathy. Referral to neurosurgery because he has gait instability and he was in a rehab in [place]. He was supposed to have cervical spine surgery for cervical stenosis but unfortunately his and surgery was postponed. We will get records from [place]. His insurance changed and he is waiting to see neurosurgery. 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 Acid reflux. Continue on Protonix 40 mg daily and dietary restrictions discussed Generalized anxiety disorder/depress ion/insomnia. Recent admission at [facility] [place]. He is stable on current regimen. He see therapist at [facility]. BPH with lower urinary tract symptoms. He is stable on current regimen and waiting to see urologist. Hearing loss. He uses hearing aids. Screening blood work ordered but he is going to have physical at [facility] 07/30/2025 Benign prostatic hyperplasia with lower urinary tract symptoms (ICD-10 - N40.1) Noel age [age] years old gentleman with CABG time 4, coronary artery disease and status post stent placement, AAA repair, hypertension, hyperlipidemia, generalized anxiety disorder/depress ion/insomnia, cervical radiculopathy, spastic dysphonia, essential tremors is here today For Medicare wellness visit. Plan is as follows CABG time 4/ coronary artery disease. - Stable at this point. He denies any exertional chest pain pressure or shortness of breath.He follows with [facility] cardiology, recommended to continue on statins, losartan, Dual therapy of aspirin and Plavix and he is also on PCSK-9. He is also on nitroglycerin 0.4 mg when necessary. AAA repair. He was referred by the welding teacher to be monitored by Vascular surgeon. Hypertension/hyp erlipidemia. - Blood pressure well controlled and continue current medication. I will recheck lipid panel, states it was nonfasting but does admit that his triglyceride has improved significantly as it used to be in the thousands. Cervical radiculopathy. -He does follow with a neurosurgeon, he recently had an MRI and has a follow-up on the results. We do not have records but will obtain a further review Spastic dysphonia. -He recently had a Botox injection with a significant improvement. He is to follow every 4 months with a specialist. Acid reflux. - Stable. Continue on Protonix 40 mg daily and dietary restrictions discussed Generalized anxiety disorder/depress ion/insomnia. - He is stable on current regimen. He see therapist And psychiatrist at [facility]. BPH with lower urinary tract symptoms. - He is stable on current regimen, He follows with urologist. [facility]. He is up-to-date Hearing loss. He uses hearing aids. Gait instability, he prefers to defer physical therapy until he sees his neurosurgeon for evaluation Screening for colon cancer, we will place an order for cologuard He is up-to-date on age-specific screenings, flu and RSV are given in office today Healthcare proxy and end-of-life care discussed, he will fill out the forms Recent blood work discussed with the patient General concerns have been discussed I have rendered the services for this patient under direct supervision of Dr. South, who did not see the patient but was available upon request Content of this note has been dictated using voice recognition software. Despite multiple revisions, Errors may persist 07/30/2025 Dysphonia (ICD-10 - R49.0) Noel age [age] years old gentleman with CABG time 4, coronary artery disease and status post stent placement, AAA repair, hypertension, hyperlipidemia, generalized anxiety disorder/depress ion/insomnia, cervical radiculopathy, spastic dysphonia, essential tremors is here today For Medicare wellness visit. Plan is as follows CABG time 4/ coronary artery disease. - Stable at this point. He denies any exertional chest pain pressure or shortness of breath.He follows with [facility] cardiology, recommended to continue on statins, losartan, Dual therapy of aspirin and Plavix and he is also on PCSK-9. He is also on nitroglycerin 0.4 mg when necessary. AAA repair. He was referred by the welding teacher to be monitored by Vascular surgeon. Hypertension/hyp erlipidemia. - Blood pressure well controlled and continue current medication. I will recheck lipid panel, states it was nonfasting but does admit that his triglyceride has improved significantly as it used to be in the thousands. Cervical radiculopathy. -He does follow with a neurosurgeon, he recently had an MRI and has a follow-up on the results. We do not have records but will obtain a further review Spastic dysphonia. -He recently had a Botox injection with a significant improvement. He is to follow every 4 months with a specialist. Acid reflux. - Stable. Continue on Protonix 40 mg daily and dietary restrictions discussed Generalized anxiety disorder/depress ion/insomnia. - He is stable on current regimen. He see therapist And psychiatrist at [facility]. BPH with lower urinary tract symptoms. - He is stable on current regimen, He follows with urologist. [facility]. He is up-to-date Hearing loss. He uses hearing aids. Gait instability, he prefers to defer physical therapy until he sees his neurosurgeon for evaluation Screening for colon cancer, we will place an order for cologuard He is up-to-date on age-specific screenings, flu and RSV are given in office today Healthcare proxy and end-of-life care discussed, he will fill out the forms Recent blood work discussed with the patient General concerns have been discussed I have rendered the services for this patient under direct supervision of Dr. South, who did not see the patient but was available upon request Content of this note has been dictated using voice recognition software. Despite multiple revisions, Errors may persist 01/29/2025 Unspecified hearing loss, unspecified ear (ICD-10 - H91.90) Noel age [age] years old gentleman with CABG time 4, coronary artery disease and status post stent placement, AAA repair, hypertension, hyperlipidemia, generalized anxiety disorder/depress ion/insomnia, cervical radiculopathy, spastic dysphonia, essential tremors is here today for follow-up He is currently living with his mother after his . He was recently admitted at [facility] for anxiety and depression. Plan is [...] current regimen plan he follows up with welding teacher Hypertension/hyp erlipidemia. Blood pressure well controlled and continue current medication and lab work ordered Cervical radiculopathy. Referral to neurosurgery because he has gait instability and he was in a rehab in [place]. He was supposed to have cervical spine surgery for cervical stenosis but unfortunately his and surgery was postponed. We will get records from [place]. His insurance changed and he is waiting to see neurosurgery. 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 Acid reflux. Continue on Protonix 40 mg daily and dietary restrictions discussed Generalized anxiety disorder/depress ion/insomnia. Recent admission at [facility] [place]. He is stable on current regimen. He see therapist at [facility]. BPH with lower urinary tract symptoms. He is stable on current regimen and waiting to see urologist. Hearing loss. He uses hearing aids. Screening blood work ordered but he is going to have physical at [facility] 07/30/2025 Unspecified hearing loss, unspecified ear (ICD-10 - H91.90) Noel age [age] years old gentleman with CABG time 4, coronary artery disease and status post stent placement, AAA repair, hypertension, hyperlipidemia, generalized anxiety disorder/depress ion/insomnia, cervical radiculopathy, spastic dysphonia, essential tremors is here today For Medicare wellness visit. Plan is as follows CABG time 4/ coronary artery disease. - Stable at this point. He denies any exertional chest pain pressure or shortness of breath.He follows with [facility] cardiology, recommended to continue on statins, losartan, Dual therapy of aspirin and Plavix and he is also on PCSK-9. He is also on nitroglycerin 0.4 mg when necessary. AAA repair. He was referred by the welding teacher to be monitored by Vascular surgeon. Hypertension/hyp erlipidemia. - Blood pressure well controlled and continue current medication. I will recheck lipid panel, states it was nonfasting but does admit that his triglyceride has improved significantly as it used to be in the thousands. Cervical radiculopathy. -He does follow with a neurosurgeon, he recently had an MRI and has a follow-up on the results. We do not have records but will obtain a further review Spastic dysphonia. -He recently had a Botox injection with a significant improvement. He is to follow every 4 months with a specialist. Acid reflux. - Stable. Continue on Protonix 40 mg daily and dietary restrictions discussed Generalized anxiety disorder/depress ion/insomnia. - He is stable on current regimen. He see therapist And psychiatrist at [facility]. BPH with lower urinary tract symptoms. - He is stable on current regimen, He follows with urologist. [facility]. He is up-to-date Hearing loss. He uses hearing aids. Gait instability, he prefers to defer physical therapy until he sees his neurosurgeon for evaluation Screening for colon cancer, we will place an order for cologuard He is up-to-date on age-specific screenings, flu and RSV are given in office today Healthcare proxy and end-of-life care discussed, he will fill out the forms Recent blood work discussed with the patient General concerns have been discussed I have rendered the services for this patient under direct supervision of Dr. South, who did not see the patient but was available upon request Content of this note has been dictated using voice recognition software. Despite multiple revisions, Errors may persist 01/29/2025 Other abnormalities of gait and mobility (ICD-10 - R26.89) Noel age [age] years old gentleman with CABG time 4, coronary artery disease and status post stent placement, AAA repair, hypertension, hyperlipidemia, generalized anxiety disorder/depress ion/insomnia, cervical radiculopathy, spastic dysphonia, essential tremors is here today for follow-up He is currently living with his mother after his . He was recently admitted at [facility] for anxiety and depression. Plan is [...] current regimen plan he follows up with welding teacher Hypertension/hyp erlipidemia. Blood pressure well controlled and continue current medication and lab work ordered Cervical radiculopathy. Referral to neurosurgery because he has gait instability and he was in a rehab in [place]. He was supposed to have cervical spine surgery for cervical stenosis but unfortunately his and surgery was postponed. We will get records from [place]. His insurance changed and he is waiting to see neurosurgery. 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 Acid reflux. Continue on Protonix 40 mg daily and dietary restrictions discussed Generalized anxiety disorder/depress ion/insomnia. Recent admission at [facility] [place]. He is stable on current regimen. He see therapist at [facility]. BPH with lower urinary tract symptoms. He is stable on current regimen and waiting to see urologist. Hearing loss. He uses hearing aids. Screening blood work ordered but he is going to have physical at [facility] 07/30/2025 Other abnormalities of gait and mobility (ICD-10 - R26.89) Noel age [age] years old gentleman with CABG time 4, coronary artery disease and status post stent placement, AAA repair, hypertension, hyperlipidemia, generalized anxiety disorder/depress ion/insomnia, cervical radiculopathy, spastic dysphonia, essential tremors is here today For Medicare wellness visit. Plan is as follows CABG time 4/ coronary artery disease. - Stable at this point. He denies any exertional chest pain pressure or shortness of breath.He follows with [facility] cardiology, recommended to continue on statins, losartan, Dual therapy of aspirin and Plavix and he is also on PCSK-9. He is also on nitroglycerin 0.4 mg when necessary. AAA repair. He was referred by the welding teacher to be monitored by Vascular surgeon. Hypertension/hyp erlipidemia. - Blood pressure well controlled and continue current medication. I will recheck lipid panel, states it was nonfasting but does admit that his triglyceride has improved significantly as it used to be in the thousands. Cervical radiculopathy. -He does follow with a neurosurgeon, he recently had an MRI and has a follow-up on the results. We do not have records but will obtain a further review Spastic dysphonia. -He recently had a Botox injection with a significant improvement. He is to follow every 4 months with a specialist. Acid reflux. - Stable. Continue on Protonix 40 mg daily and dietary restrictions discussed Generalized anxiety disorder/depress ion/insomnia. - He is stable on current regimen. He see therapist And psychiatrist at [facility]. BPH with lower urinary tract symptoms. - He is stable on current regimen, He follows with urologist. [facility]. He is up-to-date Hearing loss. He uses hearing aids. Gait instability, he prefers to defer physical therapy until he sees his neurosurgeon for evaluation Screening for colon cancer, we will place an order for cologuard He is up-to-date on age-specific screenings, flu and RSV are given in office today Healthcare proxy and end-of-life care discussed, he will fill out the forms Recent blood work discussed with the patient General concerns have been discussed I have rendered the services for this patient under direct supervision of Dr. South, who did not see the patient but was available upon request Content of this note has been dictated using voice recognition software. Despite multiple revisions, Errors may persist 07/30/2025 Impaired fasting blood sugar (ICD-10 - R73.01) Noel age [age] years old gentleman with CABG time 4, coronary artery disease and status post stent placement, AAA repair, hypertension, hyperlipidemia, generalized anxiety disorder/depress ion/insomnia, cervical radiculopathy, spastic dysphonia, essential tremors is here today For Medicare wellness visit. Plan is as follows CABG time 4/ coronary artery disease. - Stable at this point. He denies any exertional chest pain pressure or shortness of breath.He follows with [facility] cardiology, recommended to continue on statins, losartan, Dual therapy of aspirin and Plavix and he is also on PCSK-9. He is also on nitroglycerin 0.4 mg when necessary. AAA repair. He was referred by the welding teacher to be monitored by Vascular surgeon. Hypertension/hyp erlipidemia. - Blood pressure well controlled and continue current medication. I will recheck lipid panel, states it was nonfasting but does admit that his triglyceride has improved significantly as it used to be in the thousands. Cervical radiculopathy. -He does follow with a neurosurgeon, he recently had an MRI and has a follow-up on the results. We do not have records but will obtain a further review Spastic dysphonia. -He recently had a Botox injection with a significant improvement. He is to follow every 4 months with a specialist. Acid reflux. - Stable. Continue on Protonix 40 mg daily and dietary restrictions discussed Generalized anxiety disorder/depress ion/insomnia. - He is stable on current regimen. He see therapist And psychiatrist at [facility]. BPH with lower urinary tract symptoms. - He is stable on current regimen, He follows with urologist. Vision. He is up-to-date Hearing loss. He uses hearing aids. Gait instability, he prefers to defer physical therapy until he sees his neurosurgeon for evaluation Screening for colon cancer, we will place an order for cologuard He is up-to-date on age-specific screenings, flu and RSV are given in office today Healthcare proxy and end-of-life care discussed, he will fill out the forms Recent blood work discussed with the patient General concerns have been discussed I have rendered the services for this patient under direct supervision of Dr. South, who did not see the patient but was available upon request Content of this note has been dictated using voice recognition software. Despite multiple revisions, Errors may persist 07/30/2025 Encounter for screening for malignant neoplasm of colon (ICD-10 - Z12.11) Noel age [age] years old gentleman with CABG time 4, coronary artery disease and status post stent placement, AAA repair, hypertension, hyperlipidemia, generalized anxiety disorder/depress ion/insomnia, cervical radiculopathy, spastic dysphonia, essential tremors is here today For Medicare wellness visit. Plan is as follows CABG time 4/ coronary artery disease. - Stable at this point. He denies any exertional chest pain pressure or shortness of breath.He follows with [facility] cardiology, recommended to continue on statins, losartan, Dual therapy of aspirin and Plavix and he is also on PCSK-9. He is also on nitroglycerin 0.4 mg when necessary. AAA repair. He was referred by the welding teacher to be monitored by Vascular surgeon. Hypertension/hyp erlipidemia. - Blood pressure well controlled and continue current medication. I will recheck lipid panel, states it was nonfasting but does admit that his triglyceride has improved significantly as it used to be in the thousands. Cervical radiculopathy. -He does follow with a neurosurgeon, he recently had an MRI and has a follow-up on the results. We do not have records but will obtain a further review Spastic dysphonia. -He recently had a Botox injection with a significant improvement. He is to follow every 4 months with a specialist. Acid reflux. - Stable. Continue on Protonix 40 mg daily and dietary restrictions discussed Generalized anxiety disorder/depress ion/insomnia. - He is stable on current regimen. He see therapist And psychiatrist at [facility]. BPH with lower urinary tract symptoms. - He is stable on current regimen, He follows with urologist. Vision. He is up-to-date Hearing loss. He uses hearing aids. Gait instability, he prefers to defer physical therapy until he sees his neurosurgeon for evaluation Screening for colon cancer, we will place an order for cologuard He is up-to-date on age-specific screenings, flu and RSV are given in office today Healthcare proxy and end-of-life care discussed, he will fill out the forms Recent blood work discussed with the patient General concerns have been discussed I have rendered the services for this patient under direct supervision of Dr. South, who did not see the patient but was available upon request Content of this note has been dictated using voice recognition software. Despite multiple revisions, Errors may persist 07/30/2025 Encounter for immunization (ICD-10 - Z23) Noel age [age] years old gentleman with CABG time 4, coronary artery disease and status post stent placement, AAA repair, hypertension, hyperlipidemia, generalized anxiety disorder/depress ion/insomnia, cervical radiculopathy, spastic dysphonia, essential tremors is here today For Medicare wellness visit. Plan is as follows CABG time 4/ coronary artery disease. - Stable at this point. He denies any exertional chest pain pressure or shortness of breath.He follows with [facility] cardiology, recommended to continue on statins, losartan, Dual therapy of aspirin and Plavix and he is also on PCSK-9. He is also on nitroglycerin 0.4 mg when necessary. AAA repair. He was referred by the welding teacher to be monitored by Vascular surgeon. Hypertension/hyp erlipidemia. - Blood pressure well controlled and continue current medication. I will recheck lipid panel, states it was nonfasting but does admit that his triglyceride has improved significantly as it used to be in the thousands. Cervical radiculopathy. -He does follow with a neurosurgeon, he recently had an MRI and has a follow-up on the results. We do not have records but will obtain a further review Spastic dysphonia. -He recently had a Botox injection with a significant improvement. He is to follow every 4 months with a specialist. Acid reflux. - Stable. Continue on Protonix 40 mg daily and dietary restrictions discussed Generalized anxiety disorder/depress ion/insomnia. - He is stable on current regimen. He see therapist And psychiatrist at [facility]. BPH with lower urinary tract symptoms. - He is stable on current regimen, He follows with urologist. Vision. He is up-to-date Hearing loss. He uses hearing aids. Gait instability, he prefers to defer physical therapy until he sees his neurosurgeon for evaluation Screening for colon cancer, we will place an order for cologuard He is up-to-date on age-specific screenings, flu and RSV are given in office today Healthcare proxy and end-of-life care discussed, he will fill out the forms Recent blood work discussed with the patient General concerns have been discussed I have rendered the services for this patient under direct supervision of Dr. South, who did not see the patient but was available upon request Content of this note has been dictated using voice recognition software. Despite multiple revisions, Errors may persist Plan Of Treatment Pending Test Test Name Order Date Cologuard 07/30/2025 Next Appt Details Provider Name:Elaine pope, 01/27/2026 09:30:00 AM, [address] [place] [address], [phone], Insurance Providers Payer Name Payer Address Payer Phone Subscriber Number Group Number Insured Name Patient Relationship to Insured Coverage Start Date Coverage End Date [employer] [address] [address] [place] [phone] [id number] Sagar Romero Self - patient is the [...]
== END 2025-08-19 09:52 | disposition home or self-care (01) ==
LOC: HO.HCS 09:32
PROVIDERS: PCP Hospitalist; Visit Provider Internal Medicine
DX: I25.10 Atherosclerotic heart disease of native coronary artery without angina pectoris (principal); Z95.1 Presence of aortocoronary bypass graft; Z98.890 Other specified postprocedural states; Z86.79 Personal history of other diseases of the circulatory system
CPT/HCPCS: 99214; G2211